=== PATIENT | female | born 1945 | race Caucasian/White ===

== ENCOUNTER → 2016-06-01 | Outpatient (CLI) | payer MEDICARE, BC ==
--- NOTE | 2016-06-02 10:12 | MM ---
Reason for exam: screening (asymptomatic). Last mammogram was performed 1 year ago. History: Patient is postmenopausal. Physical Findings: A clinical breast exam by your physician is recommended on an annual basis and results should be correlated with mammographic findings. MG 3D Screening Mammo W/Cad Bilateral CC and MLO view(s) were taken. Prior study comparison: May 30, 2015, bilateral MG screening mammo w CAD. February 08, 2014, mammogram, performed at [facility]. November 08, 2012, mammogram, performed at [facility]. The breast tissue is heterogeneously dense. This may lower the sensitivity of mammography. No significant changes when compared with prior studies. ASSESSMENT: Benign, BI-RAD 2 RECOMMENDATION: Routine screening mammogram of both breasts in 1 year.
== END | disposition home or self-care (01) ==
LOC: RADMAMWWP 10:37
PROVIDERS: ATTEND Internal Medicine
DX: Z12.31 Encounter for screening mammogram for malignant neoplasm of breast (principal)
CPT/HCPCS: 77063; G0202

== ENCOUNTER 2016-06-16 10:52 | Day surgery (SDC) | payer MEDICARE, BC ==
[2016-06-11 13:51] VITALS: BMI 28.3
[~2016-06-16 10:52] MED LIST: LACTATED RINGERS 1,000 ML IV SCH
[2016-06-16 11:11] VITALS: TEMP 97.8
[2016-06-16] MEDS ORDERED: LIDOCAINE 1% 20 ML VIAL (10MG/ML) FOR IV START INTRADERMA ONE (11:16)
[2016-06-16] MEDS ORDERED: PROPOFOL 10 MG/ML 20 ML VIAL IV ONE (11:59)
[2016-06-16] MEDS ORDERED: LIDOCAINE 1% INJ 10MG/ML (20 ML MDV) ONE (11:59)
--- NOTE | 2016-06-16 12:18 | P.GSHP ---
History of Present Illness H&P Date: 06/16/16 Chief Complaint: Colon cancer screening Patient here today for colonoscopy. Her last colonoscopy was 7 years ago. Denies rectal bleeding or melena. No family history of colon cancer or polyps. Patient has no bowel related complaints. Past Medical History Past Medical History: Osteoarthritis (OA) Additional Past Medical History / Comment(s): HX OF RAJAN KAREL'S SYNDROME, HX OF FIBRO MYOCARDITIS, HX OF DIVERTICULITS, History of Any Multi-Drug Resistant Organisms: None Reported Past Surgical History: Section, Tubal Ligation Additional Past Surgical History / Comment(s): GROESHON CATH, IN AND NOW REMOVED FOR ANTI VIRAL DRUG FOR FIBRO MYOCARDITIS Past Anesthesia/Blood Transfusion Reactions: Previous Problems w/ Anesthesia Additional Past Anesthesia/Blood Transfusion Reaction / Comment(s): STATES WAS AWAKE DURING ONE SURGERY Past Psychological History: Anxiety Smoking Status: Never smoker Past Alcohol Use History: Occasional Past Drug Use History: Marijuana Additional Drug Use History / Comment(s): TAKE MARIJUANA CAPSULES THAT CONTAIN OIL, BUT NO THC. INSTRUCTED TO HOLD 24 HRS PRIOR TO PROCEDURE - Past Family History Brother(s) Family Medical History: Cancer Additional Family Medical History / Comment(s): PROSTATE Medications and Allergies Home Medications Medication Instructions Recorded Confirmed Type Cetirizine HCl [Zyrtec] 10 mg PO DIRECTED PRN 06/11/16 06/16/16 History Life Fortunate Supplements 1 tab PO DAILY 06/11/16 06/16/16 History Xanax Unknown Dose 1 tab PO DIRECTED PRN 06/11/16 06/16/16 History Allergies Allergy/AdvReac Type Severity Reaction Status Date / Time ciprofloxacin [From Cipro] Allergy RAJAN Verified 06/16/16 11:08 KAREL SYN. latex Allergy Rash/Hives Verified 06/16/16 11:08 metronidazole [From Flagyl] Allergy RAJAN Verified 06/16/16 11:08 KAREL SYN sulfamethoxazole Allergy Unknown Verified 06/16/16 11:08 [From Bactrim] trimethoprim [From Bactrim] Allergy Unknown Verified 06/16/16 11:08 Surgical - Exam Vital Signs Resp 16 06/16/16 11:03 Physical exam: General: Well-developed, well-nourished HEENT: Normocephalic, sclerae nonicteric Abdomen: Nontender, nondistended Extremities: No edema Neuro: Alert and oriented Assessment and Plan (1) Colon cancer screening Narrative/Plan: Will proceed with colonoscopy at this time. Status: Acute
--- NOTE | 2016-06-16 12:35 | P.PCN ---
Date of Procedure: 06/16/16 Procedure(s) Performed: PREOPERATIVE DIAGNOSIS: Colon cancer screening POSTOPERATIVE DIAGNOSIS: Diverticulosis PROCEDURE: Colonoscopy ANESTHESIA: MAC SURGEON: Emery Merida M.D. SPECIMENS: None ENDOSCOPIC PROCEDURE: The patient was placed on the endoscopy table in the left decubitus position. The Olympus colonoscope was inserted into the anus and passed under direct visualization to the base of the cecum. The appendiceal orifice was visualized. From that point the scope was slowly withdrawn inspecting all surfaces carefully. There were no neoplastic inflammatory or polypoid lesions throughout the cecum, ascending, transverse, descending, sigmoid and rectum. There was moderate diverticulosis noted out the entire colon. Digital rectal examination was normal. The patient was taken to the recovery room in stable condition per anesthesia guidelines. RECOMMENDATIONS: Increase fiber. Follow colonoscopy 10 years.
[2016-06-16 12:39] VITALS: RESP 18
[2016-06-16 13:09] VITALS: BP 133/57; PULSE 58
== END 2016-06-16 13:24 | disposition home or self-care (01) ==
LOC: ORWHC2ENDO 10:52
PROVIDERS: ATTEND Surgery
DX: Z12.11 Encounter for screening for malignant neoplasm of colon (principal); K57.30 Diverticulosis of large intestine without perforation or abscess without bleeding; M19.90 Unspecified osteoarthritis, unspecified site; Z88.8 Allergy status to other drugs, medicaments and biological substances
CPT/HCPCS: J2001; J2704; G0121

== ENCOUNTER → 2018-07-14 | Outpatient (CLI) | payer MEDICARE, BC ==
--- NOTE | 2018-07-15 10:46 | MM ---
Reason for exam: screening (asymptomatic). Last mammogram was performed 2 years and 1 month ago. History: Patient is postmenopausal. Physical Findings: A clinical breast exam by your physician is recommended on an annual basis and results should be correlated with mammographic findings. MG 3D Screening Mammo W/Cad Bilateral CC and MLO view(s) were taken. XCCL view(s) were taken of the right breast. Prior study comparison: June 01, 2016, bilateral MG 3d screening mammo w/cad. May 30, 2015, bilateral MG screening mammo w CAD. The breast tissue is extremely dense which could obscure a lesion on mammography. Stable benign calcifications. There is no discrete abnormality. No significant changes when compared with prior studies. ASSESSMENT: Benign, BI-RAD 2 RECOMMENDATION: Routine screening mammogram of both breasts in 1 year.
== END ==
LOC: RADMAMWWP 11:50
PROVIDERS: ATTEND Internal Medicine
DX: Z12.31 Encounter for screening mammogram for malignant neoplasm of breast (principal)
CPT/HCPCS: 77063; 77067

== ENCOUNTER → 2020-09-25 | Outpatient (CLI) | payer MEDICARE, BC ==
--- NOTE | 2020-09-26 10:27 | MM ---
Reason for exam: screening (asymptomatic). Last mammogram was performed 2 years and 2 months ago. History: Patient is postmenopausal. Physical Findings: A clinical breast exam by your physician is recommended on an annual basis and results should be correlated with mammographic findings. MG 3D Screening Mammo W/Cad Bilateral CC and MLO view(s) were taken. Prior study comparison: July 14, 2018, bilateral MG 3d screening mammo w/cad. June 01, 2016, bilateral MG 3d screening mammo w/cad. The breast tissue is heterogeneously dense. This may lower the sensitivity of mammography. ASSESSMENT: Negative, BI-RAD 1 RECOMMENDATION: Routine screening mammogram of both breasts in 1 year.
== END | disposition home or self-care (01) ==
LOC: RADMAMWWP 10:41
PROVIDERS: ATTEND Internal Medicine
DX: Z12.31 Encounter for screening mammogram for malignant neoplasm of breast (principal); Z78.0 Asymptomatic menopausal state
CPT/HCPCS: 77063; 77067

== ENCOUNTER 2020-12-12 07:48 | Emergency (ER) | payer MEDICARE, BC ==
[2020-12-12] MEDS ORDERED: ONDANSETRON 4 MG/2 ML VIAL IVP STA (08:16)
[2020-12-12] MEDS ORDERED: MORPHINE SULFATE 4 MG/ML SYRINGE IVP STA (08:16)
[2020-12-12] MEDS ORDERED: SODIUM CHLORIDE 0.9% 1,000 ML IV STA (08:17)
--- NOTE | 2020-12-12 08:18 | ED ---
General Adult HPI - General Chief complaint: Abdominal Pain Stated complaint: Abdominal Pain/Cramping Time Seen by Provider: 12/12/20 08:01 Source: patient Mode of arrival: ambulatory Limitations: no limitations - History of Present Illness Initial comments: 75-year-old female presents to the emergency room for a chief complaint of lower abdominal pain. Patient reports that she has had diarrhea for the past 3 days. States the diarrhea seems to be starting to improve but she is still having abdominal pain. States turning from side to side when she is sleeping worsens the pain. States standing up and walking worsens the pain. Patient admits to nausea but denies vomiting. Denies fevers. Patient's daughter is concerned she could be dehydrated. Patient does report she has been trying to drink water frequently throughout the day.Patient has no other complaints at this time including shortness of breath, chest pain, abdominal pain, nausea or vomiting, headache, or visual changes. - Related Data Home Medications Medication Instructions Recorded Confirmed Cetirizine HCl [Zyrtec] 10 mg PO DAILY 06/11/16 12/12/20 Multivitamins, Thera [Multivitamin 1 tab PO DAILY 12/12/20 12/12/20 (formulary)] Previous Rx's Medication Instructions Recorded Loperamide [Imodium] 2 mg PO QID PRN #8 cap 12/12/20 Allergies Allergy/AdvReac Type Severity Reaction Status Date / Time ciprofloxacin [From Cipro] Allergy RAJAN Verified 12/12/20 10:14 KAREL SYN. latex Allergy Rash/Hives Verified 12/12/20 10:14 metronidazole [From Flagyl] Allergy RAJAN Verified 12/12/20 10:14 KAREL SYN sulfamethoxazole Allergy Unknown Verified 12/12/20 10:14 [From Bactrim] trimethoprim [From Bactrim] Allergy Unknown Verified 12/12/20 10:14 Review of Systems ROS Statement: Those systems with pertinent positive or pertinent negative responses have been documented in the HPI. ROS Other: All systems not noted in ROS Statement are negative. Past Medical History Past Medical History: Osteoarthritis (OA) Additional Past Medical History / Comment(s): HX OF RAJAN KAREL'S SYNDROME, HX OF FIBRO MYOCARDITIS, HX OF DIVERTICULITS, History of Any Multi-Drug Resistant Organisms: None Reported Past Surgical History: Section, Tubal Ligation Additional Past Surgical History / Comment(s): GROESHON CATH, IN AND NOW REMOVED FOR ANTI VIRAL DRUG FOR FIBRO MYOCARDITIS Past Anesthesia/Blood Transfusion Reactions: Previous Problems w/ Anesthesia Additional Past Anesthesia/Blood Transfusion Reaction / Comment(s): STATES WAS AWAKE DURING ONE SURGERY Past Psychological History: Anxiety Past Alcohol Use History: Occasional Past Drug Use History: None Reported, Marijuana - Past Family History Brother(s) Family Medical History: Cancer Additional Family Medical History / Comment(s): PROSTATE General Exam Limitations: no limitations General appearance: alert, in no apparent distress Head exam: Present: atraumatic Eye exam: Present: normal appearance, PERRL, EOMI. Absent: scleral icterus, conjunctival injection ENT exam: Present: normal exam, mucous membranes moist Neck exam: Present: normal inspection, full ROM. Absent: tenderness Respiratory exam: Present: normal lung sounds bilaterally. Absent: respiratory distress, wheezes Cardiovascular Exam: Present: regular rate, normal rhythm, normal heart sounds GI/Abdominal exam: Present: soft, normal bowel sounds. Absent: distended, tenderness Neurological exam: Present: alert Course Vital Signs 12/12/20 12/12/20 12/12/20 07:50 08:58 09:00 Temperature 98.1 F Pulse Rate 72 Respiratory 18 16 16 Rate Blood Pressure 150/91 O2 Sat by Pulse 99 Oximetry 12/12/20 10:00 Temperature Pulse Rate Respiratory 16 Rate Blood Pressure O2 Sat by Pulse Oximetry Medical Decision Making - Medical Decision Making Vitals are stable. CBC CMP unremarkable. Urinalysis does not show any evidence of infection. CT abdomen and pelvis with contrast showed at least a right-sided colitis with additional multifocal enterocolitis that may be present. Differential includes infectious and/or inflammatory etiologies. Patient is afebrile with a normal white blood cell count. At this time. She can be discharged home with Imodium. Can follow-up with her doctor. Can return here for any worsening symptoms. - Lab Data Result diagrams: 12/12/20 08:53 12/12/20 08:53 Lab Results 12/12/20 12/12/20 12/12/20 Range/Units 08:53 08:53 08:53 WBC 6.4 (3.8-10.6) k/uL RBC 4.49 (3.80-5.40) m/uL Hgb 14.8 (11.4-16.0) gm/dL Hct 42.5 (34.0-46.0) % MCV 94.6 (80.0-100.0) fL MCH 33.0 (25.0-35.0) pg MCHC 34.9 (31.0-37.0) g/dL RDW 12.2 (11.5-15.5) % Plt Count 175 (150-450) k/uL MPV 9.5 Neutrophils % 78 % Lymphocytes % 15 % Monocytes % 5 % Eosinophils % 1 % Basophils % 0 % Neutrophils # 5.0 (1.3-7.7) k/uL Lymphocytes # 0.9 L (1.0-4.8) k/uL Monocytes # 0.3 (0-1.0) k/uL Eosinophils # 0.0 (0-0.7) k/uL Basophils # 0.0 (0-0.2) k/uL Sodium 137 (137-145) mmol/L Potassium 3.8 (3.5-5.1) mmol/L Chloride 107 (98-107) mmol/L Carbon Dioxide 23 (22-30) mmol/L Anion Gap 7 mmol/L BUN 9 (7-17) mg/dL Creatinine 0.69 (0.52-1.04) mg/dL Est GFR (CKD-EPI)AfAm >90 (>60 ml/min/1.73 sqM) Est GFR (CKD-EPI)NonAf 86 (>60 ml/min/1.73 sqM) Glucose 108 H (74-99) mg/dL Plasma Lactic Acid Moreno 0.8 (0.7-2.0) mmol/L Calcium 9.2 (8.4-10.2) mg/dL Total Bilirubin 0.6 (0.2-1.3) mg/dL AST 20 (14-36) U/L ALT 10 (4-34) U/L Alkaline Phosphatase 45 (38-126) U/L Total Protein 6.2 L (6.3-8.2) g/dL Albumin 3.6 (3.5-5.0) g/dL Amylase 42 (30-110) U/L Lipase 71 (23-300) U/L Urine Color Urine Appearance (Clear) Urine pH (5.0-8.0) Ur Specific Brielle (1.001-1.035) Urine Protein (Negative) Urine Glucose (UA) (Negative) Urine Ketones (Negative) Urine Blood (Negative) Urine Nitrite (Negative) Urine Bilirubin (Negative) Urine Urobilinogen (<2.0) mg/dL Ur Leukocyte Esterase (Negative) Urine RBC (0-5) /hpf Urine WBC (0-5) /hpf Ur Squamous Epith Cells (0-4) /hpf Urine Mucus (None) /hpf 12/12/20 Range/Units 10:24 WBC (3.8-10.6) k/uL RBC (3.80-5.40) m/uL Hgb (11.4-16.0) gm/dL Hct (34.0-46.0) % MCV (80.0-100.0) fL MCH (25.0-35.0) pg MCHC (31.0-37.0) g/dL RDW (11.5-15.5) % Plt Count (150-450) k/uL MPV Neutrophils % % Lymphocytes % % Monocytes % % Eosinophils % % Basophils % % Neutrophils # (1.3-7.7) k/uL Lymphocytes # (1.0-4.8) k/uL Monocytes # (0-1.0) k/uL Eosinophils # (0-0.7) k/uL Basophils # (0-0.2) k/uL Sodium (137-145) mmol/L Potassium (3.5-5.1) mmol/L Chloride (98-107) mmol/L Carbon Dioxide (22-30) mmol/L Anion Gap mmol/L BUN (7-17) mg/dL Creatinine (0.52-1.04) mg/dL Est GFR (CKD-EPI)AfAm (>60 ml/min/1.73 sqM) Est GFR (CKD-EPI)NonAf (>60 ml/min/1.73 sqM) Glucose (74-99) mg/dL Plasma Lactic Acid Moreno (0.7-2.0) mmol/L Calcium (8.4-10.2) mg/dL Total Bilirubin (0.2-1.3) mg/dL AST (14-36) U/L ALT (4-34) U/L Alkaline Phosphatase (38-126) U/L Total Protein (6.3-8.2) g/dL Albumin (3.5-5.0) g/dL Amylase (30-110) U/L Lipase (23-300) U/L Urine Color Yellow Urine Appearance Clear (Clear) Urine pH 5.5 (5.0-8.0) Ur Specific Brielle >1.050 H (1.001-1.035) Urine Protein Trace H (Negative) Urine Glucose (UA) Negative (Negative) Urine Ketones Negative (Negative) Urine Blood Negative (Negative) Urine Nitrite Negative (Negative) Urine Bilirubin Negative (Negative) Urine Urobilinogen <2.0 (<2.0) mg/dL Ur Leukocyte Esterase Moderate H (Negative) Urine RBC 4 (0-5) /hpf Urine WBC 3 (0-5) /hpf Ur Squamous Epith Cells 1 (0-4) /hpf Urine Mucus Occasional H (None) /hpf Disposition Clinical Impression: Diarrhea, Colitis, Abdominal pain Disposition: HOME SELF-CARE Condition: Good Instructions (If sedation given, give patient instructions): Abdominal Pain (ED) Additional Instructions: Please take Imodium as needed. Continue to drink plenty of fluids. Follow-up with your doctor or a recheck in 1-2 days. Return to the emergency room for any worsening symptoms. Prescriptions: Loperamide [Imodium] 2 mg PO QID PRN #8 cap PRN Reason: Diarrhea Is patient prescribed a controlled substance at d/c from ED?: No Referrals: Alexander Carranza MD [Primary Care Provider] - 1-2 days Time of Disposition: 11:25
[2020-12-12 09:06] LABS: Basophils % (A) 0 %; Eosinophils % (A) 1 %; HCT 42.5 % (34.0-46.0); HGB 14.8 gm/dL (11.4-16.0); Lymphocytes # (A) 0.9 k/uL (1.0-4.8); Lymphocytes % (A) 15 %; MCHC 34.9 g/dL (31.0-37.0); MCV 94.6 fL (80.0-100.0); Mean Platelet Volume 9.5; Monocytes # (A) 0.3 k/uL (0-1.0); Monocytes % (A) 5 %; Neutrophils % (A) 78 %; Platelet Count 175 k/uL (150-450); RBC 4.49 m/uL (3.80-5.40); RDW 12.2 % (11.5-15.5); WBC 6.4 k/uL (3.8-10.6)
[2020-12-12 09:18] LABS: ALT 10 U/L (4-34); AST 20 U/L (14-36); African American GFR (CKD) >90 (>60 ml/min/1.73 sqM); Albumin 3.6 g/dL (3.5-5.0); Alkaline Phosphatase 45 U/L (38-126); Amylase 42 U/L (30-110); Anion Gap 7 mmol/L; Blood Urea Nitrogen 9 mg/dL (7-17); Calcium 9.2 mg/dL (8.4-10.2); Carbon Dioxide 23 mmol/L (22-30); Chloride 107 mmol/L (98-107); Glucose 108 mg/dL (74-99); Lipase 71 U/L (23-300); Non-African American GFR(CKD) 86 (>60 ml/min/1.73 sqM); Potassium 3.8 mmol/L (3.5-5.1); Sodium 137 mmol/L (137-145); Total Bilirubin 0.6 mg/dL (0.2-1.3); Total Protein 6.2 g/dL (6.3-8.2)
--- NOTE | 2020-12-12 09:57 | CT ---
EXAMINATION TYPE: CT abdomen pelvis w con DATE OF EXAM: 12/12/2020 HISTORY: abdominal cramping, diarrhea, and pain. CT DLP: 696.2mGycm Automated Exposure Control for Dose Reduction was Utilized. CONTRAST: CT scan of the abdomen and pelvis is performed without oral but with IV Contrast, patient injected wi th 100 mL of Isovue 300. COMPARISON: None. FINDINGS: LUNG BASES: Mild bibasilar linear scarring and/or atelectasis. Moderate right atrial dilatation thoug ht present. LIVER/GB: Occasional subcentimeter hypodense focus scattered throughout the liver too small to furthe r characterize presumed benign. PANCREAS: No significant abnormality is seen. SPLEEN: No significant abnormality is seen. ADRENALS: No significant abnormality is seen. KIDNEYS: There is symmetric cortical medullary uptake and excretion without hydronephrosis seen bilat erally. Simple appearing parapelvic cysts centrally in both kidneys left greater than right are prese nt. BOWEL: Suboptimal evaluation without enteric contrast. No suspicious small or large bowel dilatation. There is low lying cecum into the right pelvis. Appendix within normal limits ascending from the low -lying cecum. There are scattered colonic diverticula greatest in the slightly redundant sigmoid colo n. The cecum shows mild mucosal enhancement with air-fluid level. Mild to moderate wall thickening in th e terminal ileum is present. The right colon shows more moderate to severe wall thickening with mild fat stranding near the hepatic flexure, the abnormal wall thickening extends into the proximal two th irds of the transverse colon. There is some fluid and fecal material in the left colon. Mild wall thi ckening in the sigmoid rectal colon is present. UTERUS/ADNEXA: Slightly retroflexed uterus. Prominent draining ovarian vessels particularly on the le ft cannot exclude pelvic congestion syndrome in the appropriate clinical setting. LYMPH NODES: No greater than 1cm abdominal or pelvic lymph nodes are appreciated. OSSEOUS STRUCTURES: Slight grade 1 anterolisthesis L4 on L5. OTHER: No significant additional abnormality is seen. IMPRESSION: There is at least a right-sided colitis. Additional multifocal enterocolitis may be prese nt. Differential includes infectious and/or inflammatory etiologies. Correlate clinically.
[2020-12-12 10:41] VITALS: RESP 16
[2020-12-12 10:52] LABS: Appearance,Urine Clear (Clear); Bilirubin,Urine Negative (Negative); Blood,Urine Negative (Negative); Color,Urine Yellow; Glucose,Urine (UA) Negative (Negative); Ketones,Urine Negative (Negative); Leukocyte Esterase,Urine Moderate (Negative); Mucus,Urine Occasional /hpf; Nitrite,Urine Negative (Negative); PH, Urine 5.5 (5.0-8.0); Protein,Urine Trace (Negative); RBC,Urine 4 /hpf (0-5); Squamous Epithelial Cell,Urine 1 /hpf (0-4); Urobilinogen,Urine <2.0 mg/dL (<2.0); WBC,Urine 3 /hpf (0-5)
[2020-12-12 10:58] LABS: Specific Gravity,Urine >1.050 (1.001-1.035)
[2020-12-12 11:43] VITALS: BP 137/80; PULSE 69; TEMP 97.9
== END 2020-12-12 11:43 | disposition home or self-care (01) ==
LOC: EC 07:48
DX: K52.9 Noninfective gastroenteritis and colitis, unspecified (principal); M19.90 Unspecified osteoarthritis, unspecified site; Z88.1 Allergy status to other antibiotic agents; Z88.2 Allergy status to sulfonamides; Z79.899 Other long term (current) drug therapy
CPT/HCPCS: 36415; 80053; 82150; 83605; 83690; 85025; 81001; 74177; 96374; 96375; 96361; 99284; J2270; J2405; Q9967

== ENCOUNTER → 2021-12-31 | Outpatient (CLI) | payer MEDICARE, BC ==
--- NOTE | 2022-01-01 08:27 | MM ---
Reason for Exam: Screening (asymptomatic). Last mammogram was performed 1 year(s) and 3 month(s) ago. Patient History: Menarche at age 15. First Full-Term at age 23. Postmenopausal. Risk Values: Jami 5 year model risk: 1.4%. NCI Lifetime model risk: 2.9%. Prior Study Comparison: 06/01/2016 Bilateral Screening Mammogram, [facility]. 07/14/2018 Bilateral Screening Mammogram, [facility]. 09/25/2020 Bilateral Screening Mammogram, [facility]. Tissue Density: The breast tissue is extremely dense which could obscure a lesion on mammography. Findings: Analyzed By CAD. There is no suspicious group of microcalcifications or new suspicious mass in either breast. Overall Assessment: Benign, BI-RAD 2 Management: Screening Mammogram of both breasts in 1 year. A clinical breast exam by your physician is recommended on an annual basis and results should be correlated with mammographic findings. Electronically signed and approved by: Landry Wilkes M.D. Radiologis
== END | disposition home or self-care (01) ==
LOC: RADMAMWWP 15:05
PROVIDERS: ATTEND Internal Medicine
DX: Z12.31 Encounter for screening mammogram for malignant neoplasm of breast (principal); Z78.0 Asymptomatic menopausal state
CPT/HCPCS: 77063; 77067

== ENCOUNTER → 2023-01-12 | Outpatient (CLI) | payer MEDICARE, BC ==
--- NOTE | 2023-01-13 21:07 | MM ---
Reason for Exam: Screening (asymptomatic). Last mammogram was performed 1 year(s) and 1 month(s) ago. Patient History: Menarche at age 15. First Full-Term at age 23. Postmenopausal. Risk Values: Jami 5 year model risk: 1.4%. NCI Lifetime model risk: 2.7%. Prior Study Comparison: 07/14/2018 Bilateral Screening Mammogram, [facility]. 09/25/2020 Bilateral Screening Mammogram, [facility]. 12/31/2021 Bilateral MG 3D screening mammo w/cad, [facility]. Tissue Density: The breast tissue is extremely dense which could obscure a lesion on mammography. Findings: Analyzed By CAD. Benign bilateral round calcifications. There is no suspicious group of microcalcifications or new suspicious mass in either breast. Overall Assessment: Benign, BI-RAD 2 Management: Screening Mammogram of both breasts in 1 year. Given the extremely dense breast tissue, consideration can be given to supplementary screening with breast ultrasound. Patient should continue monthly self-breast exams. A clinical breast exam by your physician is recommended on an annual basis. This exam should not preclude additional follow-up of suspicious palpable abnormalities. Note on Jami scores and lifetime risk: 1. A Jami score greater than 3% is considered moderate risk. If this is the case, consider specialist referral to assess eligibility for a risk reducing agent. 2. If overall lifetime risk for the development of breast cancer is 20% or higher, the patient may qualify for future screening with alternating mammogram and breast MRI. Electronically signed and approved by: Suhas Desir M.D. Radiologist
== END | disposition home or self-care (01) ==
LOC: RADMAMWWP 11:10
PROVIDERS: ATTEND Internal Medicine
DX: Z12.31 Encounter for screening mammogram for malignant neoplasm of breast (principal); Z78.0 Asymptomatic menopausal state
CPT/HCPCS: 77063; 77067

== ENCOUNTER 2023-08-14 15:21 | Emergency (ER) | payer MEDICARE, BC ==
[2023-08-14 15:58] VITALS: BP 198/84; PULSE 74; RESP 20; TEMP 98.1
--- NOTE | 2023-08-14 16:18 | ED ---
Upper Extremity HPI - General Chief Complaint: Extremity Injury, Upper Stated Complaint: L elbow pain Time Seen by Provider: 08/14/23 16:15 Source: patient, family, RN notes reviewed, old records reviewed Mode of arrival: ambulatory Limitations: no limitations - History of Present Illness Initial Comments: 77-year-old female presenting to the ER with a chief complaint of left elbow pain. Patient reports on 08-10-2023 she was doing housework and accidentally fell landing on her left elbow. She states she tripped over a pile of laundry causing her to fall. Denies any head injury or loss of consciousness. Family saw her 2 days later and noticed significant bruising to the left elbow. Patient was seen at urgent care on 08-12-2023 and had x-rays completed. X-rays showing a slightly comminuted displaced fracture involving the proximal ulna. Patient reports that she was discharged with an orthopedic follow-up and 600 mg ibuprofen. She states pain has been intolerable and affecting her sleep. She has follow-up with orthopedics on Wednesday. She denies any other complaints at this time. - Related Data Home Medications Medication Instructions Recorded Confirmed Cetirizine HCl [Zyrtec] 10 mg PO DAILY 06/11/16 12/12/20 Multivitamins, Thera [Multivitamin 1 tab PO DAILY 12/12/20 12/12/20 (formulary)] Previous Rx's Medication Instructions Recorded Loperamide [Imodium] 2 mg PO QID PRN #8 cap 12/12/20 Allergies Allergy/AdvReac Type Severity Reaction Status Date / Time ciprofloxacin [From Cipro] Allergy RAJAN Verified 08/14/23 15:29 KAREL SYN. latex Allergy Rash/Hives Verified 08/14/23 15:29 metronidazole [From Flagyl] Allergy RAJAN Verified 08/14/23 15:29 KAREL SYN sulfamethoxazole Allergy Unknown Verified 08/14/23 15:29 [From Bactrim] trimethoprim [From Bactrim] Allergy Unknown Verified 08/14/23 15:29 Review of Systems ROS Statement: Those systems with pertinent positive or pertinent negative responses have been documented in the HPI. ROS Other: All systems not noted in ROS Statement are negative. Past Medical History Past Medical History: Osteoarthritis (OA) Additional Past Medical History / Comment(s): HX OF RAJAN KAREL'S SYNDROME, HX OF FIBRO MYOCARDITIS, HX OF DIVERTICULITS, History of Any Multi-Drug Resistant Organisms: None Reported Past Surgical History: Section, Tubal Ligation Additional Past Surgical History / Comment(s): GROESHON CATH, IN AND NOW REMOVED FOR ANTI VIRAL DRUG FOR FIBRO MYOCARDITIS Past Anesthesia/Blood Transfusion Reactions: Previous Problems w/ Anesthesia Additional Past Anesthesia/Blood Transfusion Reaction / Comment(s): STATES WAS AWAKE DURING ONE SURGERY Past Psychological History: Anxiety Smoking Status: Never smoker Past Alcohol Use History: Occasional Past Drug Use History: None Reported, Marijuana - Past Family History Brother(s) Family Medical History: Cancer Additional Family Medical History / Comment(s): PROSTATE General Exam Limitations: no limitations General appearance: alert, in no apparent distress Respiratory exam: Present: normal lung sounds bilaterally. Absent: respiratory distress, wheezes, rales, rhonchi, stridor Cardiovascular Exam: Present: regular rate, normal rhythm, normal heart sounds. Absent: systolic murmur, diastolic murmur, rubs, gallop, clicks Extremities exam: Present: tenderness (Left elbow. Significant bruising to left elbow with edema. 2+ left radial pulse. Sensation intact. Full range of motion of digits.) Psychiatric exam: Present: normal affect, normal mood Skin exam: Present: warm, dry, intact, normal color. Absent: rash Course Vital Signs 08/14/23 15:26 Temperature 98.1 F Pulse Rate 74 Respiratory 20 Rate Blood Pressure 198/84 O2 Sat by Pulse 99 Oximetry Procedures - Orthopedic Splinting/Casting Injury #1 Side: left Upper Extremity Injury Location: elbow Upper Extremity Immobilizer: posterior splint Medical Decision Making - Medical Decision Making Was pt. sent in by a medical professional or institution (, PA, L[employer] P[employer], urgent care, hospital, or shelter...) When possible be specific @ -No Did you speak to anyone other than the patient for history (EMS, parent, family, police, friend...)? What history was obtained from this source @ -Daughter aiding in HPI Did you review nursing and triage notes (agree or disagree)? Why? @ -I reviewed and agree with nursing and triage notes Were old charts reviewed (outside hosp., previous admission, EMS record, old EKG, old radiological studies, urgent care reports/EKG's, shelter records)? Report findings @ -Yes, I reviewed x-ray findings from [facility] [place] on 08-12-2023. Left elbow x-ray significant for a slightly comminuted displaced fracture involving the proximal ulna. Differential Diagnosis (chest pain, altered mental status, abdominal pain women, abdominal pain men, vaginal bleeding, weakness, fever, dyspnea, syncope, headache, dizziness, GI bleed, back pain, seizure, CVA, palpatations, mental health, musculoskeletal)? @ -Differential Musculoskeletal: Muscular strain, contusion, ligament sprain, fracture, arthritis, septic arthritis, bursitis, cellulitis, muscle spasm, nerve compression, DVT, arterial occlusion, herpes zoster, electrolyte abnormality, tumor.... This is not meant to be in all inclusive list EKG interpreted by me (3pts min.). @ -None X-rays interpreted by me (1pt min.). @ -None done CT interpreted by me (1pt min.). @ -None done U/S interpreted by me (1pt. min.). @ -None done What testing was considered but not performed or refused? (CT, X-rays, U/S, labs)? Why? @ -None What meds were considered but not given or refused? Why? @ -None Did you discuss the management of the patient with other professionals (professionals i.e. , PA, L[employer] P[employer]ER, lab, RT, psych nurse, social professionals, petrography teacher, teacher, marketing and communications officer, family independence case manager)? Give summary @ -No Was smoking cessation discussed for >3mins.? @ -No Was critical care preformed (if so, how long)? @ -No Were there social determinants of health that impacted care today? How? (Homelessness, low income, unemployed, alcoholism, drug addiction, transportation, low edu. Level, literacy, decrease access to med. care, [place] [facility], rehab)? @ -No Was there de-escalation of care discussed even if they declined (Discuss DNR or withdrawal of care, Hospice)? DNR status @ -No What co-morbidities impacted this encounter? (DM, HTN, Smoking, COPD, CAD, Cancer, CVA, ARF, Chemo, Hep., AIDS, mental health diagnosis, sleep apnea, morbid obesity)? @ -None Was patient admitted / discharged? Hospital course, mention meds given and route, prescriptions, significant lab abnormalities, going to OR and other pertinent info. @ -Discharge. 77-year-old female presented to the ER with a chief complaint of left elbow pain. Patient diagnosed with a proximal ulnar fracture by urgent care on 08-13-2023. Patient scheduled to see orthopedics on 08-16-2023. History and physical exam completed. Vitals stable. Patient in no signs of acute distress and nontoxic-appearing. Left upper extremity neurovascular intact. Significant bruising to left elbow with edema. No evidence of skin breakdown. I reviewed x-ray findings from [facility] urgent care on 08-12-2023. Left elbow x-ray significant for a slightly comminuted displaced fracture involving the proximal ulna. Patient resplinted. Tylenol 3 starter pack given. I advised her to continue taking ibuprofen and alternate with [id number] Tylenol. Return parameters discussed. Patient discharged stable condition with follow-up to orthopedics. Patient verbally expressed understanding and agreement with care plan. Case discussed with ED attending, Dr. Chapman. Undiagnosed new problem with uncertain prognosis? @ -No Drug Therapy requiring intensive monitoring for toxicity (Heparin, Nitro, Insulin, Cardizem)? @ -No Were any procedures done? @ -Yes Diagnosis/symptom? @ -Proximal ulnar fracture Acute, or Chronic, or Acute on Chronic? @ -Acute Uncomplicated (without systemic symptoms) or Complicated (systemic symptoms)? @ -Uncomplicated Side effects of treatment? @ -No Exacerbation, Progression, or Severe Exacerbation? @ -No Poses a threat to life or bodily function? How? (Chest pain, [place], [place], pneumonia, PE, COPD, DKA, ARF, appy, cholecystitis, CVA, Diverticulitis, Homicidal, Suicidal, threat to staff... and all critical care pts) @ -No - Radiology Data Radiology results: report reviewed (from [facility] urgent care) Disposition Clinical Impression: Fracture of proximal end of left ulna Disposition: HOME SELF-CARE Condition: Stable Instructions (If sedation given, give patient instructions): Elbow Fracture (DC) Additional Instructions: Please follow-up with orthopedics as scheduled. Return to the ER for any new or worsening concerns. Is patient prescribed a controlled substance at d/c from ED?: No Referrals: Alexander Carranza MD [Primary Care Provider] - 1-2 days Tad Eddy DO [Doctor of Osteopathic Medicine] - 1-2 days Time of Disposition: 16:42
[2023-08-14] MEDS: ACET/COD 300 MG/30 MG STARTER PACK 6 TAB BTL PO STA (17:01)
== END 2023-08-14 17:19 | disposition home or self-care (01) ==
LOC: EC 15:21
DX: S52.002A Unspecified fracture of upper end of left ulna, initial encounter for closed fracture (principal); Z91.040 Latex allergy status; Z88.2 Allergy status to sulfonamides; Z88.8 Allergy status to other drugs, medicaments and biological substances; W01.0XXA Fall on same level from slipping, tripping and stumbling without subsequent striking against object, initial encounter
CPT/HCPCS: 29125; 99283

== ENCOUNTER → 2023-08-16 | Outpatient (CLI) | payer MEDICARE, BC ==
[2023-08-17 03:05] LABS: Basophils # (A) 0.04 X 10*3/uL (0.00-0.10); Basophils % (A) 0.5 %; Eosinophils # (A) 0.07 X 10*3/uL (0.04-0.35); Eosinophils % (A) 0.9 %; HCT 42.3 % (37.2-46.3); HGB 13.8 g/dL (12.0-15.0); Lymphocytes # (A) 1.08 X 10*3/uL (0.90-5.00); MCH 31.7 pg (27.0-32.0); MCHC 32.6 g/dL (32.0-37.0); Mean Platelet Volume 11.9 FL (9.5-12.2); Monocytes # (A) 0.59 X 10*3/uL (0.20-1.00); Monocytes % (A) 7.7 %; NRBC Per 100 WBC 0 X 10*3/uL (0.00-0.01); Neutrophils % (A) 76.6 %; Platelet Count 227 X 10*3/uL (140-440); RBC 4.36 X 10*6/uL (4.10-5.20); RDW 12.9 % (11.5-14.5)
[2023-08-17 03:19] LABS: BUN/Creat Ratio 17.86 Ratio (12.00-20.00); Blood Urea Nitrogen 12.5 mg/dL (9.0-27.0); Calcium 9.3 mg/dL (8.7-10.3); Chloride 106 mmol/L (96-109); Glucose 84 mg/dL (70-110); Potassium 3.5 mmol/L (3.5-5.5); Sodium 143 mmol/L (135-145)
== END | disposition home or self-care (01) ==
LOC: LABPAT 15:10
PROVIDERS: ATTEND Orthopaedic Surgery Hand Surgery
DX: Z01.818 Encounter for other preprocedural examination (principal); S52.022A Displaced fracture of olecranon process without intraarticular extension of left ulna, initial encounter for closed fracture; X58.XXXA Exposure to other specified factors, initial encounter; R94.31 Abnormal electrocardiogram [ECG] [EKG]
CPT/HCPCS: 80048; 85025; 93005

== ENCOUNTER 2023-08-20 06:38 | Day surgery (SDC) | payer MEDICARE, BC ==
[2023-08-17 12:10] VITALS: BMI 26.5
--- NOTE | 2023-08-19 12:39 | P.HPOR ---
History of Present Illness H&P Date: 08/19/23 Subjective: This is a 77 year old female that presents today for initial evaluation regarding a left elbow injury that occurred on 08/12/2023 when she was carrying laundry inside of her house and slipped and fell directly on the posterior aspect of her elbow. She was seen at [facility] urgent care where x-rays were taken and she was placed in a splint. She states that the splint was too tight and she went to [facility] emergency room several days later and a new splint was applied. She is right-hand dominant and lives alone. Physical Examination: LUE: AIN/PIN/Radial/Ulnar/Median motor intact. Radial/Ulnar/Median SILT. 2+/4 Radial/Ulnar pulses palpated. 5/5 APB, 5/5 FDI. Splint is clean, dry and intact with swelling distally in the hand. Able to make a full fist without pain. Imaging: X-Rays of the left elbow 3 view taken in the office today demonstrates a displaced left olecranon fracture with 1 cm of displacement. Comminution is present. Impression: 1.) Left elbow olecranon fracture, displaced. Plan: Diagnosis and treatment options were discussed with the patient. Due to the amount of displacement present on imaging today I recommend surgical intervention in the form of a left olecranon fracture open reduction internal fixation. Risks and benefits of surgery including bleeding, infection, damage to surrounding tissue, need for further surgery, residual numbness were discussed and the patient wished to go forward with surgery. The patient was agreeable with this plan. CC: Alexander Carranza MD -Baltazar Kaiser DO Orthopedic Hand/Upper Extremity Surgeon Past Medical History Past Medical History: Osteoarthritis (OA) Additional Past Medical History / Comment(s): HX OF WILLIAM KAREL'S SYNDROME, HX OF FIBRO MYOCARDITIS, HX OF DIVERTICULITIS. History of Any Multi-Drug Resistant Organisms: None Reported Past Surgical History: Section, Tubal Ligation Additional Past Surgical History / Comment(s): GROESHON CATHETER PLACED AND LATER REMOVED FOR ANTIVIRAL DRUG FOR FIBRO MYOCARDITIS, colonoscopy X2, cataract surgery. Past Anesthesia/Blood Transfusion Reactions: Previous Problems w/ Anesthesia Additional Past Anesthesia/Blood Transfusion Reaction / Comment(s): STATES WAS AWAKE DURING COLONOSCOPY. Smoking Status: Never smoker - Past Family History Brother(s) Family Medical History: Cancer Additional Family Medical History / Comment(s): PROSTATE CANCER. Medications and Allergies Home Medications Medication Instructions Recorded Confirmed Type Cetirizine HCl [Zyrtec] 10 mg PO DAILY 06/11/16 08/17/23 History Multivitamins, Thera [Multivitamin 1 tab PO DAILY 12/12/20 08/17/23 History (formulary)] Ibuprofen [Motrin] 600 mg PO Q6HR PRN 08/17/23 08/17/23 History Allergies Allergy/AdvReac Type Severity Reaction Status Date / Time ciprofloxacin [From Cipro] Allergy WILLIAM Verified 08/17/23 10:46 KAREL SYN. Influenza Virus Vaccines Allergy William Verified 08/17/23 10:48 Karel Syndrome latex Allergy Rash/Hives Verified 08/17/23 10:46 metronidazole [From Flagyl] Allergy WILLIAM Verified 08/17/23 10:46 KAREL SYN sulfamethoxazole Allergy Unknown Verified 08/17/23 10:46 [From Bactrim] trimethoprim [From Bactrim] Allergy Unknown Verified 08/17/23 10:46 Physical Examination Osteopathic Statement: *. No significant issues noted on an osteopathic structural exam other than those noted in the History and Physical/Consult.
[2023-08-20] MEDS ORDERED: HYDROmorphone 0.5 MG/0.5 ML SYRINGE IVP PRN (07:00)
[2023-08-20] MEDS: LACTATED RINGERS 1,000 ML IV SCH (07:15)
[2023-08-20] MEDS: ONDANSETRON 4 MG/2 ML VIAL ONE (07:39)
[2023-08-20] MEDS: MIDAZOLAM 2 MG/2 ML VIAL IVP ONE (07:58)
--- NOTE | 2023-08-20 08:50 | P.ANPRN ---
Procedure Note - Anesthesia - Nerve Block Performed Left Supraclavicular Single Date of Procedure: 08/20/23 Procedure Start Time: 07:57 Procedure Stop Time: 08:03 Indication: Acute Post-Operative Pain, Analgesia, Requested by Surgeon Sedation Type: Sedate with meaningful contact maintained Preparation: Sterile Prep Position: Supine Needle Gauge: 21 Ultrasound used to visualize needle placement: Yes Ultrasound used to observe medication spread: Yes Injectate: 0.5% Ropivacaine (see comment for volume) Blood Aspirated: No Pain Paresthesia on Injection Noted: No Resistance on Injection: Normal Image Stored and Saved: Yes Events: Uneventful and Well Tolerated (25 mls)
[2023-08-20] MEDS ORDERED: fentaNYL (PF) 50 MCG/ML 2 ML AMP ONE (09:22)
[2023-08-20] MEDS ORDERED: ROPIVACAINE 5 MG/ML 30 ML VIAL ONE (09:22)
[2023-08-20] MEDS ORDERED: PROPOFOL 10 MG/ML 20 ML VIAL IV ONE (09:22)
[2023-08-20] MEDS ORDERED: MIDAZOLAM 2 MG/2 ML VIAL ONE (09:22)
--- NOTE | 2023-08-20 11:23 | P.OP ---
Date of Procedure: 08/20/23 Preoperative Diagnosis: Left olecranon fracture Postoperative Diagnosis: Left olecranon fracture Procedure(s) Performed: Left olecranon fracture open reduction internal fixation. Implants: Walter Variax Olecranon plate Anesthesia: BRYAN regional Surgeon: Baltazar Kaiser Diamond Sander #1: Teddy Amos Estimated Blood Loss (ml): 20 Pathology: none sent Condition: stable Disposition: PACU Description of Procedure: This is a 77 year old female who sustained a left olecranon fracture after falling onto her elbow and presents today for surgical intervention. Risks and benefits of surgery were discussed with the patient including bleeding, damage to surrounding tissue, possible need for irritable hardware removal in the future infection, need for further surgery as well as risks of anesthesia including pulmonary embolism and even and the patient wished to proceed with surgical intervention. The patient was seen in the pre-operative area by myself. Consent and H&P were completed and updated. The correct extremity was marked in the pre-operative area by myself and all other questions were answered. Operative Narrative: The patient was brought to the operating room by the department of anesthesia. They were placed supine on the operative table and general anesthesia was performed. The patient was then drifted off to sleep by the department of anesthesia. A nonsterile tourniquet was then applied to the operat tati extremity and the patient was then placed in a em bag lateral position with all eduard prominences well padded, axillary role was placed. The upper extremity was then prepped and draped in normal sterile fashion. Pre-operative time out was performed indicating the correct patient, procedure and laterality. All in the room agreed. Pre-operative antibiotics were given prior to skin incision. A nonsterile tourniquet was then applied to the operative extremity and the right upper extremity was then prepped and draped in normal sterile fashion. The operative extremity was the exsanguinated with an esmarch bandage and the tourniquet was inflated to 250mmHg. 15 blade scalpel was utilized to make a longitudinal incision over the posterior aspect of the elbow that was directed radially around the olecranon process. Full thickness flaps were then made down to the fracture site of the olecranon. Bovie cautery was utilized for hemostasis. Hematoma was evacuated with suction and irrigation, there was extensive comminution medially and laterally. Fracture ends were cleaned of any soft tissue debris. The fracture was then reduced by hand. Imaging confirmed anatomic reduction of the articular surface in both AP and lateral views. A Walter Variax left sided olecranon plate was then applied to the reduced fracture. The triceps insertion was split longitudinally to make room for the tip of the plate to hug the olecranon process curvature. A non- locking screw was drilled distally in the shaft to compress the plate to bone. Imaging then confirmed good location of the plate on the ulna. The proximal screws were then unicortically drilled and filled with locking screws taking care to not penetrate the articular surface. The remainder of the distal shaft screws were filled with bicortical fixation distal to the fracture line. A long homerun screw was then drilled and measured and a size 46 locking screw was placed as the final homerun screw. The elbow as then ranged and full smooth flexion and extension of the ulna was able to be achieved as well as full pronation/supination of the forearm. Final imaging confirmed correct screw length with no intra-articular penetration at the ulnohumeral or proximal radial ulnar joint. The wound was then irrigated. 3-0 Vicryl suture was used to repair the splint triceps to cover the plate. Layered closure was performed with 3-0 vicryl suture followed by 3-0 nylon suture in a horizontal mattress fashion. Sterile dressing was applied consisting of a adaptic, 4x4s, cast padding, and a soft dressing and sling. Tourniquet was let down and the hand had immediate perfusion. The patient was then woken by the department of anesthesia and transferred to PACU in stable condition. Teddy GAMBOA was present to assist in fracture reduction and hardware placement. Baltazar Kaiser D.O. Orthopedic Hand/Upper Extremity Surgeon
[2023-08-20 11:29] VITALS: TEMP 97
[2023-08-20 13:24] VITALS: BP 133/60; PULSE 56; RESP 20
== END 2023-08-20 13:36 | disposition home or self-care (01) ==
LOC: OR 06:38
PROVIDERS: ATTEND Orthopaedic Surgery Hand Surgery
DX: S52.022A Displaced fracture of olecranon process without intraarticular extension of left ulna, initial encounter for closed fracture (principal); G89.18 Other acute postprocedural pain; M19.90 Unspecified osteoarthritis, unspecified site; Z98.891 History of uterine scar from previous surgery; Z98.51 Tubal ligation status; Z98.890 Other specified postprocedural states; Z79.899 Other long term (current) drug therapy; Z88.1 Allergy status to other antibiotic agents; Z88.7 Allergy status to serum and vaccine; Z91.040 Latex allergy status; Z88.2 Allergy status to sulfonamides; X58.XXXA Exposure to other specified factors, initial encounter
CPT/HCPCS: 64415; 24685; C1713; J2250; J0690; J2405; J3010; J2795; J2704

== ENCOUNTER → 2024-01-18 | Outpatient (CLI) | payer MEDICARE, BC ==
--- NOTE | 2024-01-19 12:57 | MM ---
Reason for Exam: Screening (asymptomatic). Last screening mammogram was performed 12 month(s) ago. Patient History: Menarche at age 15. First Full-Term at age 23. Postmenopausal. Risk Values: Jami 5 year model risk: 1.4%. NCI Lifetime model risk: 2.5%. Prior Study Comparison: 06/01/2016 Bilateral Screening Mammogram, [facility]. 07/14/2018 Bilateral Screening Mammogram, [facility]. 09/25/2020 Bilateral Screening Mammogram, [facility] 12/31/2021 Bilateral MG 3D screening mammo w/cad, [facility]. 01/12/2023 Bilateral MG 3D screening mammo w/cad, [facility]. Tissue Density: The breasts are heterogeneously dense, which may obscure small masses. Findings: Analyzed By CAD. Right breast: There is no suspicious group of microcalcifications or new suspicious mass. Benign-appearing calcifications right breast. Left breast: There is no suspicious group of microcalcifications or new suspicious mass. Benign-appearing calcifications left breast. Overall Assessment: Benign, BI-RAD 2 Management: Screening Mammogram of both breasts in [address] [facility] will attempt to contact patient to return for supplemental views and ultrasound if indicated. Patient should continue monthly self-breast exams. A clinical breast exam by your physician is recommended on an annual basis. This exam should not preclude additional follow-up of suspicious palpable abnormalities. Note on Jami scores and lifetime risk: 1. A Jami score greater than 3% is considered moderate risk. If this is the case, consider specialist referral to assess eligibility for a risk reducing agent. 2. If overall lifetime risk for the development of breast cancer is 20% or higher, the patient may qualify for future screening with alternating mammogram and breast MRI. [facility], , 01/19/2024 12:54 PM. Electronically signed and approved by: Robert Rizzo DO
== END ==
LOC: RADMAMWWP 07:45
PROVIDERS: ATTEND Internal Medicine
CPT/HCPCS: 77063; 77067

== ENCOUNTER 2024-05-22 11:55 | Day surgery (SDC) | payer MEDICARE, BC ==
[2024-05-18 10:51] VITALS: BMI 26.5
[~2024-05-22 11:55] MED LIST changes: -LACTATED RINGERS 1,000 ML IV SCH; +LIDOCAINE 1% (10MG/ML) FOR IV START INTRADERMA PRN
[2024-05-22] MEDS: LACTATED RINGERS 1,000 ML IV ONE (12:24)
[2024-05-22 12:38] VITALS: TEMP 97.8
[2024-05-22] MEDS: LACTATED RINGERS 1,000 ML IV SCH (13:01)
[2024-05-22] MEDS ORDERED: PROPOFOL 10 MG/ML 20 ML VIAL IV ONE (13:42)
--- NOTE | 2024-05-22 14:03 | P.GSHP ---
History of Present Illness H&P Date: 05/22/24 Chief Complaint: Rectal bleeding This is a 78-year-old female comes today for colonoscopy patient says she is rectal bleeding. She has a known history of hemorrhoids. Past Medical History Past Medical History: Osteoarthritis (OA) Additional Past Medical History / Comment(s): HX OF WILLIAM KAREL'S SYNDROME, HX OF VIRAL MYOCARDITIS, HX OF DIVERTICULITIS; hemorrhoids History of Any Multi-Drug Resistant Organisms: None Reported Past Surgical History: Section, Tubal Ligation Additional Past Surgical History / Comment(s): GROESHON CATHETER PLACED AND LATER REMOVED FOR ANTIVIRAL DRUG FOR VIRAL MYOCARDITIS, colonoscopy X2, cataract surgery. Lt elbow [id number]-hloexjwq lalit. Bi lat cataract removal with lens implant. Past Anesthesia/Blood Transfusion Reactions: No Reported Reaction Additional Past Anesthesia/Blood Transfusion Reaction / Comment(s): STATES WAS AWAKE DURING COLONOSCOPY- "I wasn't competely out." "They had to give me more medicine to put me out.' Smoking Status: Never smoker - Past Family History Brother(s) Family Medical History: Cancer Additional Family Medical History / Comment(s): PROSTATE CANCER. Medications and Allergies Home Medications Medication Instructions Recorded Confirmed Type Cetirizine HCl [Zyrtec] 10 mg PO DAILY 06/11/16 05/22/24 History Multivitamins, Thera [Multivitamin 1 tab PO DAILY 12/12/20 05/22/24 History (formulary)] Magnesium 250 mg PO DIRECTED 03/07/24 05/22/24 History Cayenne (Uknown Dose) 1 dose PO QAM 05/18/24 05/22/24 History Hemp Seed Oil(Unknown Dose 1 dose PO QAM 05/18/24 05/22/24 History Red Beet Root/Sour Mcgregor Ext 1 each PO QAM 05/18/24 05/22/24 History [Beet Root-Tart Mcgregor Gummy] Turmeric/Cucumin/Root(Unknown 1 dose PO QAM 05/18/24 05/22/24 History Ubidecarenone [Co Q-10] 100 mg PO QAM 05/18/24 05/22/24 History Vitamin C(Unknown Dose) 1 dose PO QAM 05/18/24 05/22/24 History Vitamin D(Unknown Dose) 1 dose PO QAM 05/18/24 05/22/24 History Allergies Allergy/AdvReac Type Severity Reaction Status Date / Time ciprofloxacin [From Cipro] Allergy WILLIAM Verified 05/22/24 12:38 KAREL SYN. Influenza Virus Vaccines Allergy William Verified 05/22/24 12:38 Karel Syndrome latex Allergy Rash/Hives Verified 05/22/24 12:38 metronidazole [From Flagyl] Allergy WILLIAM Verified 05/22/24 12:38 KAREL SYN sulfamethoxazole Allergy Unknown Verified 05/22/24 12:38 [From Bactrim] trimethoprim [From Bactrim] Allergy Unknown Verified 05/22/24 12:38 Surgical - Exam Vital Signs Temp Pulse Resp BP Pulse Ox 97.8 F 71 16 164/74 99 05/22/24 12:34 05/22/24 12:34 05/22/24 12:34 05/22/24 12:34 05/22/24 12:34 - General well developed, well nourished, no distress - Eyes PERRL - ENT normal pinna - Neck no masses - Respiratory normal expansion - Cardiovascular Rhythm: regular - Abdomen Abdomen: soft, non tender Assessment and Plan Assessment: GI bleed. Will perform colonoscopy.
[2024-05-22 14:35] VITALS: BP 156/66; PULSE 78; RESP 16
--- NOTE | 2024-06-05 10:22 | P.OP ---
Date of Procedure: 05/22/24 Preoperative Diagnosis: Rectal bleeding Postoperative Diagnosis: Transverse colon polyp Diverticulosis Anal biopsy questionable mass Procedure(s) Performed: Colonoscopy Anesthesia: MAC Surgeon: Hayes Hansen Pathology: other (Colon polyp, anal biopsy) Condition: stable Disposition: PACU Description of Procedure: The patient is placed on the endoscopy table in the lateral position. She received IV stationery digital rectal exam was performed. There was a questionable hemorrhoid/mass at the anal verge. This was biopsied with a cold forcep. The colonoscope was in place patient anus passed throughout the entire colon. The ileocecal valve w not be visualized secondary tortuosity of the bowel. The visualized right colon appeared normal except for some diverticulosis. In the transverse colon a polyp seen was removed with a snare. There were diverticular changes seen of the transverse colon and descending colon. The sigmoid colon extensive diverticular changes. Scope was brought back to the rectum this appeared normal. Scope withdrawn from the anus. The anal abnormality visualized. There is no bleeding seen from the biopsy site. Scope withdrawn for the patient.
== END 2024-05-22 15:03 | disposition home or self-care (01) ==
LOC: ORWHC2ENDO 11:55
PROVIDERS: ATTEND Surgery
DX: D01.3 Carcinoma in situ of anus and anal canal (principal); D12.3 Benign neoplasm of transverse colon; K57.30 Diverticulosis of large intestine without perforation or abscess without bleeding; Z79.899 Other long term (current) drug therapy; Z87.19 Personal history of other diseases of the digestive system; Z88.1 Allergy status to other antibiotic agents; Z88.7 Allergy status to serum and vaccine; Z91.040 Latex allergy status; Z88.2 Allergy status to sulfonamides
CPT/HCPCS: 88305; 45380; 45385; J2704

== ENCOUNTER 2024-06-16 06:05 | Day surgery (SDC) | payer MEDICARE, BC ==
[~2024-06-16 06:05] MED LIST changes: -LIDOCAINE 1% (10MG/ML) FOR IV START INTRADERMA PRN; +Pre Op ABX Message 1 EACH MISC MISCELLANE ONE
[2024-06-16] MEDS: IV FLUID CONTINUATION 1,000 ML IV ONE (06:50)
[2024-06-16] MEDS ORDERED: MIDAZOLAM 2 MG/2 ML VIAL IV PRN (07:00)
[2024-06-16] MEDS ORDERED: HYDROmorphone 0.5 MG/0.5 ML SYRINGE IVP PRN (07:00)
[2024-06-16] MEDS: DEXAMETHASONE SOD PHOSPHATE 4 MG/ML 1 ML VIAL IV ONE (07:13)
[2024-06-16] MEDS: ACETAMINOPHEN TAB 500 MG TAB PO PRN (07:13)
[2024-06-16] MEDS: ONDANSETRON 4 MG/2 ML VIAL IVP ONE (07:13)
[2024-06-16] MEDS: HEPARIN SODIUM,PORCINE 5,000 UNIT/ML 1 ML VIAL SQ PRN (07:14)
[2024-06-16] MEDS: LACTATED RINGERS 1,000 ML IV SCH (07:14)
[2024-06-16] MEDS ORDERED: fentaNYL (PF) 50 MCG/ML 2 ML AMP ONE (07:33)
[2024-06-16] MEDS ORDERED: PROPOFOL 10 MG/ML 20 ML VIAL IV ONE (07:33)
[2024-06-16] MEDS ORDERED: SUCCINYLCHOLINE CHLORIDE 200 MG/10 ML VIAL IV ONE (07:33)
[2024-06-16] MEDS ORDERED: LIDOCAINE 1% INJ 10MG/ML (20 ML MDV) ONE (07:33)
[2024-06-16] MEDS ORDERED: MIDAZOLAM 2 MG/2 ML VIAL ONE (07:33)
[2024-06-16] MEDS: LIDOCAINE 1%-EPI 1:100,000 20 ML VIAL SUBMUCOSAL ONE (07:58)
[2024-06-16 08:43] VITALS: TEMP 97.6
--- NOTE | 2024-06-16 08:43 | P.OP ---
Date of Procedure: 06/16/24 Preoperative Diagnosis: Squamous cell carcinoma anus Postoperative Diagnosis: Squamousr cell carcinoma anus Procedure(s) Performed: Excision of anal squamous cell carcinoma Anesthesia: BRYAN Surgeon: Hayes Hansen Estimated Blood Loss (ml): 5 Pathology: other (Anal squamous cell carcinoma) Condition: stable Disposition: PACU Description of Procedure: Is placed on the operating table in the prone jackknife position. Her anus was prepped and draped you sterile fashion. At the 12 o'clock position the patient had a anal squamous cell carcinoma measuring approximate 2.5 cm in diameter. In incision was made around the anal squamous cell carcinoma which included approximately 5 mm of normal skin tissue. Use electrocautery the anal squamous cell carcinoma was dissected. Care was taken to identify preserve the sphincter. Once the specimen was was excised. The mucosal defect was closed using 3-0 Vicryl suture. A small area was left open so the wound could drain. Sterile dressing was applied. Patient Toller procedure well. She was sent to recovery room in stable condition.
[2024-06-16 10:20] VITALS: BP 160/74; PULSE 73; RESP 14
== END 2024-06-16 11:11 | disposition home or self-care (01) ==
LOC: OR 06:05
PROVIDERS: ATTEND Surgery
DX: C44.520 Squamous cell carcinoma of anal skin (principal); M19.90 Unspecified osteoarthritis, unspecified site; F12.90 Cannabis use, unspecified, uncomplicated; Z88.1 Allergy status to other antibiotic agents; Z91.040 Latex allergy status; Z88.7 Allergy status to serum and vaccine; Z88.2 Allergy status to sulfonamides; Z79.899 Other long term (current) drug therapy
CPT/HCPCS: 46922; 88305; J2250; J0330; J1644; J1100; J2405; J2003; J3010; J2704

== ENCOUNTER → 2024-07-27 | Outpatient (CLI) | payer MEDICARE, BC ==
--- NOTE | 2024-07-29 19:34 | PE ---
EXAMINATION TYPE: PET CT fusion skull to thigh DATE OF EXAM: 07/27/2024 CLINICAL INDICATION:Female, 78 years old with history of anal malignancy TECHNIQUE: Following the intravenous administration of 11.02 mCi of F-18 FDG, whole body images are performed from the skull base to the Mid thigh. Images are reviewed on the computer in the coronal, axial, and sagittal planes. Reconstructed rotating images are created on independent workstation an d reviewed on the computer. A non-contrast CT is performed in conjunction with the PET scan. Glucos e level 102 mg/dL CT DLP: 384 mGycm, Automated exposure control for dose reduction was used. 12/12/2020 COMPARISON: CT 12/21/2020, PET/CT None, MRI: None FINDINGS: Mediastinal SUV mean is 2.2. Hepatic parenchyma SUV mean is 2.7. SKULL BASE AND NECK: No suspicious radiotracer activity. CHEST, MEDIASTINUM, AND HILAR REGION: No suspicious radiotracer activity. ABDOMEN AND PELVIS: No suspicious radiotracer activity. MUSCULOSKELETAL STRUCTURES: No suspicious radiotracer activity. OTHER CT: Bilaterally aphakia. Atherosclerosis of the arterial vasculature including the carotid bifurcations. The heart is mildly enlarged for size. Scattered colonic diverticula. IMPRESSION: No evidence for abnormal uptake around the anus. No lymphadenopathy or FDG avid lesions identified. [facility], , 07/29/2024 7:32 PM
== END | disposition home or self-care (01) ==
LOC: RADPETMAIN 13:31
PROVIDERS: ATTEND Internal Medicine Hematology & Oncology
DX: C21.1 Malignant neoplasm of anal canal (principal)
CPT/HCPCS: 78815; A9552

== ENCOUNTER 2024-08-09 09:20 | Day surgery (SDC) | payer MEDICARE, BC ==
[~2024-08-09 09:20] MED LIST changes: +fentaNYL (PF) 50 MCG/ML 2 ML AMP IV PRN
[2024-08-09 10:09] VITALS: RESP 16
[2024-08-09] MEDS: IV FLUID CONTINUATION 1,000 ML IV ONE (10:10)
[2024-08-09] MEDS: LACTATED RINGERS 1,000 ML IV SCH (10:10)
[2024-08-09] MEDS: LIDOCAINE 1% (10MG/ML) FOR IV START INTRADERMA PRN (10:10)
[2024-08-09] MEDS: ONDANSETRON 4 MG/2 ML VIAL IVP ONE (10:24)
[2024-08-09] MEDS: DEXAMETHASONE SOD PHOSPHATE 4 MG/ML 1 ML VIAL IV ONE (10:25)
[2024-08-09 10:34] LABS: Glucose,Whole Blood 89 mg/dL (70-110)
[2024-08-09] MEDS ORDERED: PROPOFOL 10 MG/ML 20 ML VIAL IV ONE (10:39)
[2024-08-09] MEDS ORDERED: PHENYLEPHRINE-0.9% NACL SYG 1,000 MCG/10 ML SYRINGE ONE (10:39)
[2024-08-09] MEDS ORDERED: MIDAZOLAM 2 MG/2 ML VIAL ONE (10:39)
[2024-08-09] MEDS ORDERED: fentaNYL (PF) 50 MCG/ML 2 ML AMP ONE (10:39)
[2024-08-09] MEDS ORDERED: LIDOCAINE 1% INJ 10MG/ML (20 ML MDV) ONE (10:39)
[2024-08-09] MEDS: ceFAZolin 2 GM in DEXTROSE 5% IN WATER 50 ML IVPB STA (10:44)
[2024-08-09] MEDS: BUPIVACAINE (PF) 0.25% 30 ML VIAL SQ ONE (11:03)
--- NOTE | 2024-08-09 11:35 | FL ---
EXAMINATION TYPE: FL guided central line placemt Intraoperative/procedural fluoroscopic services were provided. CLINICAL INDICATION:Female, 78 years old with history of INSERT PORT A CATH; , [facility] FINDINGS: Insertion of right subclavian approach Port-A-Cath with distal tip in the region of the high SVC. No radiographic evidence for complication. Total fluoroscopy time is 22.4 seconds. DAP: 0.6670 Gycm2 Please see the operative/procedural note for further details. [facility], , 08/09/2024 11:33 AM
[2024-08-09 11:36] VITALS: TEMP 97.6
--- NOTE | 2024-08-09 11:48 | P.OP ---
Date of Procedure: 08/09/24 Preoperative Diagnosis: Anal CA Postoperative Diagnosis: Anal CA Procedure(s) Performed: Mediport with Fluoroscopy Implants: MRI compatible 6 Bulgarian Mediport Anesthesia: MAC Surgeon: Arlen Henry Pathology: none sent Condition: stable Disposition: same day Indications for Procedure: 78-year-old female with recent diagnosis of anal cancer. Presents today for Mediport placement for chemotherapy induction. Risks, benefits and alternatives were the patient. All questions answered prior to attending the operating suite. Operative Findings: Appropriate flush and withdrawal from the Mediport Description of Procedure: Patient was brought to the operating suite and placed in supine position on the operating table. Sedation was provided by anesthesia and the patient underwent endotracheal intubation. Patient was then prepped and draped in regular sterile fashion. Local anesthetic was administered and the right subclavian vein was entered on first attempt. Nonpulsatile dark blood was withdrawn. Guidewire was then placed and location was confirmed under fluoroscopic guidance. At this point local anesthetic was administered to create the pocket for the port. Incision was made and dissection was carried to the prepectoralis fascia. Dissection was carried to free up space for the port. At this point a small incision was made at the guidewire insertion site and a tunnel was created between this guidewire site and the pocket and catheter was placed. Dilator sheath was then placed over the guidewire under fluoroscopic guidance and catheter was then placed. Catheter was noted to be in appropriate position and was connected to the port and port was placed in the pocket. Appropriate flush and withdrawal was noted from the port site. The port was then secured to the prepectoralis fascia in 2 separate locations. Fluoroscopic guidance confirmed location with no kinks in the catheter. Heparin lock was placed. The wound was then closed in layers with 3-0 Vicryl and 4-0 Vicryl subcuticular suture. Sterile dressing was applied. The patient was then taken to postanesthesia care unit in stable condition with pending chest x-ray.
--- NOTE | 2024-08-09 12:41 | XR ---
EXAMINATION TYPE: XR chest 1V confirm line plcmt DATE OF EXAM: 08/09/2024 12:31 PM COMPARISON: Fluoroscopic images of the same date, PET CT 07/27/2024 TECHNIQUE: XR chest 1V confirm line plcmt Portable AP radiograph of the chest. CLINICAL INDICATION:Female, 78 years old with history of Mediport placement; FINDINGS: Lungs/Pleura: There is no evidence of pleural effusion, focal consolidation, or pneumothorax. Pulmonary vascularity: Unremarkable. Heart/mediastinum: Cardiomediastinal silhouette is prominent in size. Musculoskeletal: No acute osseous pathology. Other findings: None Lines/Tubes: Right chest subclavian approach Mediport catheter distal tip in the mid SVC. IMPRESSION: Right chest subclavian approach Mediport catheter distal tip in the mid SVC. No pneumothorax. [facility], , 08/09/2024 12:39 PM
[2024-08-09 12:52] VITALS: BP 135/58; PULSE 68
== END 2024-08-09 13:10 | disposition home or self-care (01) ==
LOC: OR 09:20
PROVIDERS: ATTEND Surgery
DX: C21.0 Malignant neoplasm of anus, unspecified (principal); K57.32 Diverticulitis of large intestine without perforation or abscess without bleeding; F12.90 Cannabis use, unspecified, uncomplicated; L51.1 Stevens-Johnson syndrome; M19.90 Unspecified osteoarthritis, unspecified site; Z88.2 Allergy status to sulfonamides; Z86.79 Personal history of other diseases of the circulatory system; Z91.040 Latex allergy status; Z88.7 Allergy status to serum and vaccine; Z88.1 Allergy status to other antibiotic agents; Z79.899 Other long term (current) drug therapy
CPT/HCPCS: 77001; 36561; C1788; J2250; J1100; J0690; J2405; J2003; J3010; J1642; J2704; J2371; J0665

== ENCOUNTER 2024-10-09 09:41 | Inpatient (IN) | payer MEDICARE, BC ==
--- NOTE | 2024-10-09 10:44 | ED ---
General Adult HPI - General Chief complaint: Weakness Stated complaint: weakness/NVD Time Seen by Provider: 10/09/24 10:18 Source: patient, RN notes reviewed Mode of arrival: ambulatory Limitations: no limitations - History of Present Illness Initial comments: 79-year-old female presents to the emergency department for evaluation of generalized weakness. Patient notes that this has been going on for 1 to 2 weeks. She does note that she has recently received chemotherapy and radiation treatment. Her last treatment was less than a week ago. She states that she is so weak that she is having difficulty walking to the bathroom. She notes associated nausea, vomiting. She is having difficulty tolerating p.o. intake. She denies any fever. She does endorse chills. Denies any chest pain or shortness of breath. - Related Data Home Medications Medication Instructions Recorded Confirmed Multivitamins, Thera [Multivitamin 1 tab PO DAILY 12/12/20 10/09/24 (formulary)] Magnesium 250 mg PO DAILY 03/07/24 10/09/24 Cyanocobalamin [Vitamin B-12] 500 mcg PO DAILY 10/09/24 10/09/24 Diphenoxylate HCl/Atropine 2 tab PO QID PRN 10/09/24 10/09/24 [Lomotil 2.5-0.025 mg Tablet] HYDROcodone/APAP 5-325MG [Holden 1 tab PO BID PRN 10/09/24 10/09/24 5-325] Ondansetron [Zofran] 4 - 8 mg PO Q4H PRN 10/09/24 10/09/24 Vitamin D3/Vitamin K2 (Mk4) 1 tab PO DAILY 10/09/24 10/09/24 [Vitamin K2 Plus D3 Tablet] Allergies Allergy/AdvReac Type Severity Reaction Status Date / Time ciprofloxacin [From Cipro] Allergy WILLIAM Verified 10/09/24 14:32 KAREL SYN. Influenza Virus Vaccines Allergy William Verified 10/09/24 14:32 Karel Syndrome latex Allergy Rash/Hives Verified 10/09/24 14:32 metronidazole [From Flagyl] Allergy WILLIAM Verified 10/09/24 14:32 KAREL SYN sulfamethoxazole Allergy Unknown Verified 10/09/24 14:32 [From Bactrim] trimethoprim [From Bactrim] Allergy Unknown Verified 10/09/24 14:32 Review of Systems ROS Statement: Those systems with pertinent positive or pertinent negative responses have been documented in the HPI. ROS Other: All systems not noted in ROS Statement are negative. Past Medical History Past Medical History: Cancer, Osteoarthritis (OA) Additional Past Medical History / Comment(s): HX OF WILLIAM KAREL'S SYNDROME, HX OF VIRAL MYOCARDITIS, HX OF DIVERTICULITIS; recent dx squamous cell cancer to anal area. hx of benign polyps. History of Any Multi-Drug Resistant Organisms: None Reported Past Surgical History: Section, Tubal Ligation Additional Past Surgical History / Comment(s): GROESHON CATHETER PLACED AND LATER REMOVED FOR ANTIVIRAL DRUG FOR VIRAL MYOCARDITIS, colonoscopy X2, cataract surgery. Lt elbow [id number] lalit. Bi lat cataract removal with lens implant. surgery to remove anal cancer Past Anesthesia/Blood Transfusion Reactions: No Reported Reaction Additional Past Anesthesia/Blood Transfusion Reaction / Comment(s): STATES WAS AWAKE DURING COLONOSCOPY- "I wasn't competely out." "They had to give me more medicine to put me out.' Past Psychological History: No Psychological Hx Reported Smoking Status: Never smoker Past Alcohol Use History: None Reported Past Drug Use History: None Reported - Past Family History Brother(s) Additional Family Medical History / Comment(s): PROSTATE CANCER. Mother Family Medical History: Diabetes Mellitus General Exam Limitations: no limitations General appearance: alert, in no apparent distress Head exam: Present: atraumatic, normocephalic, normal inspection Eye exam: Present: normal appearance, PERRL, EOMI. Absent: scleral icterus, c onjunctival injection, periorbital swelling ENT exam: Present: normal exam, mucous membranes moist Respiratory exam: Present: normal lung sounds bilaterally. Absent: respiratory distress, wheezes, rales, rhonchi, stridor Cardiovascular Exam: Present: regular rate, normal rhythm, normal heart sounds. Absent: systolic murmur, diastolic murmur, rubs, gallop, clicks GI/Abdominal exam: Present: soft, tenderness, normal bowel sounds. Absent: distended, guarding, rebound, rigid Extremities exam: Present: normal inspection, full ROM, normal capillary refill. Absent: tenderness, pedal edema, joint swelling, calf tenderness Back exam: Present: normal inspection Neurological exam: Present: alert, oriented X3 Psychiatric exam: Present: normal affect, normal mood Skin exam: Present: warm, dry, intact, normal color. Absent: rash Course Vital Signs 10/09/24 10/09/24 10/09/24 09:48 13:00 17:00 Temperature 98.6 F Pulse Rate 97 92 86 Respiratory 20 16 18 Rate Blood Pressure 120/75 136/68 157/80 O2 Sat by Pulse 98 96 99 Oximetry 10/09/24 20:30 Temperature Pulse Rate 93 Respiratory 12 Rate Blood Pressure 153/88 O2 Sat by Pulse 97 Oximetry Medical Decision Making - Medical Decision Making Was pt. sent in by a medical professional or institution (, PA, SHOT COAT TENDER, urgent care, hospital, or usp...) When possible be specific @ -No Did you speak to anyone other than the patient for history (EMS, parent, family, police, friend...)? What history was obtained from this source @ -No Did you review nursing and triage notes (agree or disagree)? Why? @ -I reviewed and agree with nursing and triage notes Were old charts reviewed (outside hosp., previous admission, EMS record, old EKG, old radiological studies, urgent care reports/EKG's, usp records)? Report findings @ -No old charts were reviewed Differential Diagnosis (chest pain, altered mental status, abdominal pain women, abdominal pain men, vaginal bleeding, weakness, fever, dyspnea, syncope, headache, dizziness, GI bleed, back pain, seizure, CVA, palpatations, mental health, musculoskeletal)? @ -Differential Weakness: Hypoglycemia, shock, sepsis, hyponatremia, anemia, infection, MS, ETOH, adverse medicine reaction, overdose, stroke, this is not meant to be an all-inclusive list. EKG interpreted by me (3pts min.). @ -EKG at 1029 shows sinus rhythm rate 92, AL 179, QRS 97 X-rays interpreted by me (1pt min.). @ -None done CT interpreted by me (1pt min.). @ -CT of the abdomen pelvis reveals findings consistent with ileitis U/S interpreted by me (1pt. min.). @ -None done What testing was considered but not performed or refused? (CT, X-rays, U/S, labs)? Why? @ -None What meds were considered but not given or refused? Why? @ -None Did you discuss the management of the patient with other professionals (professionals i.e. , PA, SHOT COAT TENDER, lab, RT, psych nurse, case management social worker, job analysis manager, teacher, booking officer, case picker)? Give summary @ -Case discussed with Dr. Carranza who was accepting of the admission Was smoking cessation discussed for >3mins.? @ -No Was critical care preformed (if so, how long)? @ -No Were there social determinants of health that impacted care today? How? (Homelessness, low income, unemployed, alcoholism, drug addiction, transportation, low edu. Level, literacy, decrease access to med. care, correction, rehab)? @ -No Was there de-escalation of care discussed even if they declined (Discuss DNR or withdrawal of care, Hospice)? DNR status @ -No What co-morbidities impacted this encounter? (DM, HTN, Smoking, COPD, CAD, Cancer, CVA, ARF, Chemo, Hep., AIDS, mental health diagnosis, sleep apnea, morbid obesity)? @ -None Was patient admitted / discharged? Hospital course, mention meds given and route , prescriptions, significant lab abnormalities, going to OR and other pertinent info. @ -Admitted.Patient presented the emergency department for evaluation of generalized weakness. Laboratory studies obtained revealing leukopenia at 0.7 WBCs, hemoglobin 11.7; normal coagulation studies CMP is nonactionable UA shows 4+ ketones, 1+ glucose, 1+ protein which is likely due to dehydration. Patient had a negative stool occult. CT abdomen pelvis obtained revealing findings consistent with ileitis likely due to the patient's chemotherapy and radiation. Patient will be admitted to the hospital with oncology consultation. She is understanding agreeable plan. Patient stable at time of admission. Case discussed with Dr. Guzman Undiagnosed new problem with uncertain prognosis? @ -No Drug Therapy requiring intensive monitoring for toxicity (Heparin, Nitro, Insulin, Cardizem)? @ -No Were any procedures done? @ -No Diagnosis/symptom? @ -Generalized weakness Acute, or Chronic, or Acute on Chronic? @ -Acute Uncomplicated (without systemic symptoms) or Complicated (systemic symptoms)? @ -Uncomplicated Side effects of treatment? @ -No Exacerbation, Progression, or Severe Exacerbation? @ -No Poses a threat to life or bodily function? How? (Chest pain, USA, MS, pneumonia, PE, COPD, DKA, ARF, appy, cholecystitis, CVA, Diverticulitis, Homicidal, Suicidal, threat to staff... and all critical care pts) @ -No - Lab Data Result diagrams: 10/13/24 02:53 10/13/24 02:53 Lab Results 10/09/24 10/09/24 10/09/24 Range/Units 11:54 11:54 11:54 WBC 0.70 L* (4.50-10.00) 10*3/uL RBC 3.58 L (4.10-5.20) 10*6/uL Hgb 11.7 L (12.0-15.0) g/dL Hct 32.9 L (37.2-46.3) % MCV 91.9 (80.0-97.0) fL MCH 32.7 H (27.0-32.0) pg MCHC 35.6 (32.0-37.0) g/dL Plt Count 118 L (140-440) 10*3/uL MPV 10.6 (9.5-12.2) fL Immature Gran % (Auto) 0 % Immature Gran # 0.00 (0.00-0.04) 10*3/uL Differential Comment Manual Slide Review Performed Immature Plt Fraction 3.4 (1.1-6.1) % Anisocytosis (manual) Present PT 10.8 (10.0-12.5) sec INR 1.0 (<1.2) APTT 22.3 (22.0-30.0) sec Sodium 136 L (137-145) mmol/L Potassium 3.9 (3.5-5.1) mmol/L Chloride 103 (98-107) mmol/L Carbon Dioxide 21 L (22-30) mmol/L Anion Gap 12 mmol/L BUN 9 (7-17) mg/dL Creatinine 0.50 L (0.52-1.04) mg/dL Est GFR (CKD-EPI)AfAm >90 (>60 ml/min/1.73 sqM) Est GFR (CKD-EPI)NonAf >90 (>60 ml/min/1.73 sqM) Glucose 114 H (74-99) mg/dL Plasma Lactic Acid Moreno (0.7-2.0) mmol/L Calcium 8.7 (8.4-10.2) mg/dL Magnesium 2.0 (1.6-2.3) mg/dL Total Bilirubin 0.7 (0.2-1.3) mg/dL AST 22 (14-36) U/L ALT 27 (4-34) U/L Alkaline Phosphatase 52 (38-126) U/L Troponin I (0.000-0.034) ng/mL Total Protein 5.5 L (6.3-8.2) g/dL Albumin 3.2 L (3.5-5.0) g/dL Urine Color Urine Appearance (Clear) Urine pH (5.0-8.0) Ur Specific [place] (1.001-1.035) Urine Protein (Negative) Urine Glucose (UA) (Negative) Urine Ketones (Negative) Urine Blood (Negative) Urine Nitrite (Negative) Urine Bilirubin (Negative) Urine Urobilinogen (<2.0) mg/dL Ur Leukocyte Esterase (Negative) Urine RBC (0-5) /hpf Urine WBC (0-5) /hpf Ur Squamous Epith Cells (0-4) /hpf Hyaline Casts (0-2) /lpf Urine Mucus (None) /hpf Stool Occult Blood (Negative) Blood Type Blood Type Confirm Blood Type Recheck Bld Type Recheck Status Antibody Screen Spec Expiration Date 10/09/24 10/09/24 10/09/24 Range/Units 11:54 11:54 11:54 WBC (4.50-10.00) 10*3/uL RBC (4.10-5.20) 10*6/uL Hgb (12.0-15.0) g/dL Hct (37.2-46.3) % MCV (80.0-97.0) fL MCH (27.0-32.0) pg MCHC (32.0-37.0) g/dL Plt Count (140-440) 10*3/uL MPV (9.5-12.2) fL Immature Gran % (Auto) % Immature Gran # (0.00-0.04) 10*3/uL Differential Comment Manual Slide Review Immature Plt Fraction (1.1-6.1) % Anisocytosis (manual) PT (10.0-12.5) sec INR (<1.2) APTT (22.0-30.0) sec Sodium (137-145) mmol/L Potassium (3.5-5.1) mmol/L Chloride (98-107) mmol/L Carbon Dioxide (22-30) mmol/L Anion Gap mmol/L BUN (7-17) mg/dL Creatinine (0.52-1.04) mg/dL Est GFR (CKD-EPI)AfAm (>60 ml/min/1.73 sqM) Est GFR (CKD-EPI)NonAf (>60 ml/min/1.73 sqM) Glucose (74-99) mg/dL Plasma Lactic Acid Moreno 1.1 (0.7-2.0) mmol/L Calcium (8.4-10.2) mg/dL Magnesium (1.6-2.3) mg/dL Total Bilirubin (0.2-1.3) mg/dL AST (14-36) U/L ALT (4-34) U/L Alkaline Phosphatase (38-126) U/L Troponin I 0.014 (0.000-0.034) ng/mL Total Protein (6.3-8.2) g/dL Albumin (3.5-5.0) g/dL Urine Color Urine Appearance (Clear) Urine pH (5.0-8.0) Ur Specific [place] (1.001-1.035) Urine Protein (Negative) Urine Glucose (UA) (Negative) Urine Ketones (Negative) Urine Blood (Negative) Urine Nitrite (Negative) Urine Bilirubin (Negative) Urine Urobilinogen (<2.0) mg/dL Ur Leukocyte Esterase (Negative) Urine RBC (0-5) /hpf Urine WBC (0-5) /hpf Ur Squamous Epith Cells (0-4) /hpf Hyaline Casts (0-2) /lpf Urine Mucus (None) /hpf Stool Occult Blood (Negative) Blood Type A Positive Blood Type Confirm Blood Type Recheck No Previous Record Bld Type Recheck Status CABO Indicated Antibody Screen NEGATIVE Spec Expiration Date 10/12/2024235310/09/24 10/09/24 10/09/24 Range/Units 12:25 12:25 14:18 WBC (4.50-10.00) 10*3/uL RBC (4.10-5.20) 10*6/uL Hgb (12.0-15.0) g/dL Hct (37.2-46.3) % MCV (80.0-97.0) fL MCH (27.0-32.0) pg MCHC (32.0-37.0) g/dL Plt Count (140-440) 10*3/uL MPV (9.5-12.2) fL Immature Gran % (Auto) % Immature Gran # (0.00-0.04) 10*3/uL Differential Comment Manual Slide Review Immature Plt Fraction (1.1-6.1) % Anisocytosis (manual) PT (10.0-12.5) sec INR (<1.2) APTT (22.0-30.0) sec Sodium (137-145) mmol/L Potassium (3.5-5.1) mmol/L Chloride (98-107) mmol/L Carbon Dioxide (22-30) mmol/L Anion Gap mmol/L BUN (7-17) mg/dL Creatinine (0.52-1.04) mg/dL Est GFR (CKD-EPI)AfAm (>60 ml/min/1.73 sqM) Est GFR (CKD-EPI)NonAf (>60 ml/min/1.73 sqM) Glucose (74-99) mg/dL Plasma Lactic Acid Moreno (0.7-2.0) mmol/L Calcium (8.4-10.2) mg/dL Magnesium (1.6-2.3) mg/dL Total Bilirubin (0.2-1.3) mg/dL AST (14-36) U/L ALT (4-34) U/L Alkaline Phosphatase (38-126) U/L Troponin I (0.000-0.034) ng/mL Total Protein (6.3-8.2) g/dL Albumin (3.5-5.0) g/dL Urine Color Yellow Urine Appearance Clear (Clear) Urine pH 5.5 (5.0-8.0) Ur Specific [place] 1.028 (1.001-1.035) Urine Protein 1+ H (Negative) Urine Glucose (UA) 1+ H (Negative) Urine Ketones 4+ H (Negative) Urine Blood Small H (Negative) Urine Nitrite Negative (Negative) Urine Bilirubin 1+ H (Negative) Urine Urobilinogen 2.0 (<2.0) mg/dL Ur Leukocyte Esterase Negative (Negative) Urine RBC 5 (0-5) /hpf Urine WBC 4 (0-5) /hpf Ur Squamous Epith Cells <1 (0-4) /hpf Hyaline Casts 7 H (0-2) /lpf Urine Mucus Moderate H (None) /hpf Stool Occult Blood Negative (Negative) Blood Type Blood Type Confirm A Positive Blood Type Recheck Bld Type Recheck Status Antibody Screen Spec Expiration Date Disposition Clinical Impression: Generalized weakness, Ileitis, Leukopenia Disposition: ADMITTED IP TO THIS HOSP Condition: Stable Is patient prescribed a controlled substance at d/c from ED?: No
[2024-10-09] MEDS: ONDANSETRON 4 MG/2 ML VIAL IVP STA (11:45)
[2024-10-09] MEDS: LACTATED RINGERS 1,000 ML IV ONE (11:49)
[2024-10-09 12:25] LABS: HCT 32.9 % (37.2-46.3); HGB 11.7 g/dL (12.0-15.0); Immature Platelet Fraction 3.4 % (1.1-6.1); MCH 32.7 pg (27.0-32.0); MCHC 35.6 g/dL (32.0-37.0); MCV 91.9 fL (80.0-97.0); Platelet Count 118 10*3/uL (140-440); RBC 3.58 10*6/uL (4.10-5.20); RDW 13.2 % (11.5-14.5)
[2024-10-09 12:32] LABS: WBC 0.70 10*3/uL (4.50-10.00)
[2024-10-09 12:41] LABS: Bilirubin,Urine 1+ (Negative); Blood,Urine Small (Negative); Color,Urine Yellow; Glucose,Urine (UA) 1+ (Negative); Hyaline Casts,Urine 7 /lpf (0-2); Leukocyte Esterase,Urine Negative (Negative); Mucus,Urine Moderate /hpf; Nitrite,Urine Negative (Negative); PH, Urine 5.5 (5.0-8.0); Protein,Urine 1+ (Negative); RBC,Urine 5 /hpf (0-5); Specific Gravity,Urine 1.028 (1.001-1.035); Squamous Epithelial Cell,Urine <1 /hpf (0-4); Urobilinogen,Urine 2.0 mg/dL (<2.0); WBC,Urine 4 /hpf (0-5)
[2024-10-09 12:44] LABS: ALT 27 U/L (4-34); AST 22 U/L (14-36); African American GFR (CKD) >90 (>60 ml/min/1.73 sqM); Albumin 3.2 g/dL (3.5-5.0); Alkaline Phosphatase 52 U/L (38-126); Anion Gap 12 mmol/L; Blood Urea Nitrogen 9 mg/dL (7-17); Calcium 8.7 mg/dL (8.4-10.2); Carbon Dioxide 21 mmol/L (22-30); Chloride 103 mmol/L (98-107); Glucose 114 mg/dL (74-99); Magnesium 2.0 mg/dL (1.6-2.3); Non-African American GFR(CKD) >90 (>60 ml/min/1.73 sqM); Potassium 3.9 mmol/L (3.5-5.1); Sodium 136 mmol/L (137-145); Total Protein 5.5 g/dL (6.3-8.2)
[2024-10-09 12:49] LABS: Ketones,Urine 4+ (Negative)
[2024-10-09 12:51] LABS: Anisocytosis (M) Present
[2024-10-09 12:52] LABS: INR 1.0 (<1.2); Partial Thromboplastin Time 22.3 sec (22.0-30.0); Prothrombin Time 10.8 sec (10.0-12.5)
--- NOTE | 2024-10-09 15:16 | CT ---
EXAMINATION TYPE: CT abdomen pelvis w con DATE OF EXAM: 10/09/2024 2:56 PM COMPARISON: 05/29/2024 PET/CT CLINICAL INDICATION: Female, 79 years old with history of abd pain, Abd pain, weakness, N/V/D. TECHNIQUE: Axial images were obtained from above the diaphragm to the pubic rami in the axial plane a t 5 mm thick sections. Reconstructed images are reviewed on the computer in the coronal plane. CONTRAST: 100 ml mL of Isovue 300. Study performed without Oral Contrast DLP: 694.8 mGycm, Automated exposure control for dose reduction was used. FINDINGS: Limited CT sections are obtained the lung bases. The lung bases are clear. Small hiatal hernia is p resent. CT ABDOMEN: Liver: Normal Spleen: Normal Pancreas: Normal Adrenal glands: The adrenal glands are normal. Gallbladder: Normal Kidneys: No masses are evident. No hydronephrosis is present. Peripelvic cysts are present bilatera lly. Delayed images were obtained through the kidneys, which remain unremarkable. Aorta: Vascular calcification is within the aorta. Inferior vena cava: Normal. CT PELVIS: There is thickening of the distal ileum proximal ascending colon. Correlate for ileitis. Crohn's dise ase could be considered. There is some inflammatory change adjacent to the cecum. There are few diverticuli without adjacent inflammatory changes within the sigmoid colon. thickenin g. The study is without oral contrast limiting bowel evaluation. Appendix: Normal as visualized. This is limited in evaluation. Urinary bladder: Normal. Genitourinary structures: There is a 2.1 cm cyst on the right ovary. Left adnexa appears normal. Foll icle may be present. Uterus is unremarkable. Osseous structures: No suspicious lytic or sclerotic lesions. IMPRESSION: 1. Thickened wall through the distal ileum and proximal ascending colon and cecum. Correlate for ile itis. Consider Crohn's disease. 2. Diverticulosis without acute diverticulitis. 3. Right ovarian cyst. [facility], , 10/09/2024 3:14 PM
[2024-10-09] MEDS ORDERED: HYDROmorphone 0.5 MG/0.5 ML SYRINGE IVP PRN (15:47)
[2024-10-09] MEDS ORDERED: HYDROmorphone 1 MG/ML 1 ML SYRINGE IVP PRN (15:47)
[2024-10-09] MEDS ORDERED: NALOXONE 0.4 MG/ML 1 ML VIAL IV PRN (15:47)
[2024-10-09] MEDS: SODIUM CHLORIDE 0.9% 1,000 ML IV SCH (17:01)
[2024-10-09] MEDS: PROCHLORPERAZINE 5 MG TAB PO PRN (20:26)
[2024-10-10] MEDS: KETOROLAC 15 MG/ML 1 ML VIAL IVP PRN (02:38)
[2024-10-10] MEDS: ACETAMINOPHEN TAB 325 MG TAB PO PRN (08:18)
--- NOTE | 2024-10-10 13:48 | P.HPIM ---
History of Present Illness H&P Date: 10/10/24 Marquita Copeland is a 79-year-old female patient who presented with concerns of weakness following chemotherapy. Patient is currently getting treatment for anal cancer and received her second dose of chemotherapy and felt significantly weak with nausea vomiting. Additional medical history includes osteoarthritis, Jessica-Karel syndrome, bile viral myocarditis, diverticulitis. Abdominal pelvis CT completed showing thickened wall through the distal ileum and proximal ascending colon and cecum correlate for ileitis consider Crohn's disease diverticulosis without acute diverticulitis right ovarian cyst. Lab work completed showing white blood cell 0.70, hemoglobin 11.7, creatinine 0.50 bun 9 stool for occult blood negative UA negative. At this time patient will be admitted patient states she feels much improved. Continue with IV fluid and symptomatic management oncology services are following patient maintained on clear liquid diet stool for C. difficile ordered. Current vital signs temp 100.9, heart rate 91, respiratory rate 18, blood pressure 158/78 with a pulse ox of 97% on room air. Will consult infectious disease services due to leukopenia and fever. 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 hx of benign polyps. History of Any Multi-Drug Resistant Organisms: None Reported Past Surgical History: Section, Tubal Ligation Additional Past Surgical History / Comment(s): GROESHON CATHETER PLACED AND LATER REMOVED FOR ANTIVIRAL DRUG FOR VIRAL MYOCARDITIS, colonoscopy X2, cataract surgery. Lt elbow [id number] lalit. Bi lat cataract removal with lens implant. surgery to remove anal cancer Past Anesthesia/Blood Transfusion Reactions: No Reported Reaction Additional Past Anesthesia/Blood Transfusion Reaction / Comment(s): STATES WAS AWAKE DURING COLONOSCOPY- "I wasn't competely out." "They had to give me more medicine to put me out.' Past Psychological History: No Psychological Hx Reported Smoking Status: Never smoker Past Alcohol Use History: None Reported Past Drug Use History: None Reported Additional Drug Use History / Comment(s): TAKE MARIJUANA CAPSULES THAT CONTAIN OIL, BUT NO THC. INSTRUCTED TO HOLD 24 HRS PRIOR TO PROCEDURE. - Past Family History Brother(s) Additional Family Medical History / Comment(s): PROSTATE CANCER. Mother Family Medical History: Diabetes Mellitus Medications and Allergies Home Medications Medication Instructions Recorded Confirmed Type Multivitamins, Thera [Multivitamin 1 tab PO DAILY 12/12/20 10/09/24 History (formulary)] Magnesium 250 mg PO DAILY 03/07/24 10/09/24 History Cyanocobalamin [Vitamin B-12] 500 mcg PO DAILY 10/09/24 10/09/24 History Diphenoxylate HCl/Atropine 2 tab PO QID PRN 10/09/24 10/09/24 History [Lomotil 2.5-0.025 mg Tablet] HYDROcodone/APAP 5-325MG [[place] 1 tab PO BID PRN 10/09/24 10/09/24 History 5-325] Ondansetron [Zofran] 4 - 8 mg PO Q4H PRN 10/09/24 10/09/24 History Vitamin D3/Vitamin K2 (Mk4) 1 tab PO DAILY 10/09/24 10/09/24 History [Vitamin K2 Plus D3 Tablet] Allergies Allergy/AdvReac Type Severity Reaction Status Date / Time ciprofloxacin [From Cipro] Allergy WILLIAM Verified 10/09/24 14:32 KAREL SYN. Influenza Virus Vaccines Allergy William Verified 10/09/24 14:32 Karel Syndrome latex Allergy Rash/Hives Verified 10/09/24 14:32 metronidazole [From Flagyl] Allergy WILLIAM Verified 10/09/24 14:32 KAREL SYN sulfamethoxazole Allergy Unknown Verified 10/09/24 14:32 [From Bactrim] trimethoprim [From Bactrim] Allergy Unknown Verified 10/09/24 14:32 Physical Exam Vitals: Vital Signs Temp Pulse Pulse Resp BP BP Pulse Ox 10/10/24 12:45 98.5 F 10/10/24 09:33 99.0 F 18 10/10/24 08:12 100.9 F H 10/10/24 07:42 18 10/10/24 07:15 100 F H 91 16 158/78 97 10/10/24 02:00 99.4 F 90 14 152/85 99 10/09/24 22:45 97 18 145/74 100 10/09/24 20:30 93 12 153/88 97 10/09/24 17:00 86 18 157/80 99 Intake and Output 10/09/24 10/10/24 10/10/24 22:59 06:59 14:59 Other: # Voids 1 Weight 59.874 kg Head normocephalic Neck supple Lungs clear to auscultation bilaterally no wheezing or crackles Heart regular rate and rhythm S1-S2, no rub or gallop Abdomen is soft nontender nondistended positive bowel sounds no hepatosplenomegaly Extremities no edema Neuro alert and orientated to 3 Results CBC & Chem 7: 10/09/24 11:54 10/09/24 11:54 Thrombosis Risk Factor Assmnt - Choose All That Apply Other Risk Factors: Yes Each Risk Factor Represents 2 Points: Age 61-74 years Thrombosis Risk Factor Assessment Total Risk Factor Score: 2 Thrombosis Risk Factor Assessment Level: Low Risk Assessment and Plan Assessment: 1. Generalized weakness 2. Nausea vomiting secondary to ileitis 3. Febrile 4. Currently getting chemo and radiation for anal cancer 5. Leukopenia secondary to chemo treatment 6. History of William Karel syndrome 7. History of viral myocarditis DVT prophylaxis SCDs. GI prophylax Protonix Oncology and infectious disease services consulted Repeat labs ordered Continue normal saline at 75 Blood culture ordered
[2024-10-10 14:49] LABS: RSV Not Detected (Not Detectd)
[2024-10-10] MEDS: PIPERACILLIN-TAZOBACTAM 3.375 GM in SODIUM CHLORIDE 0.9% 100 ML IVPB SCH (15:30)
[2024-10-10] MEDS: FILGRASTIM-SNDZ 300 MCG/0.5 ML SYRINGE SQ SCH (18:54)
--- NOTE | 2024-10-10 20:19 | P.CONS ---
History of Present Illness - Reason for Consult Consult date: 10/10/24 Chemo, rectal carcinoma Requesting physician: Esther Parisi - Chief Complaint weakness, inability to tolerate oral intake - History of Present Illness Ms. Copeland is a female pt of Dr. Webb with squamous cell carcinoma of the rectum, who just completed mitomycin/5FU days 1 and 29 with 5 day pump, concurrent radiation. I do not have all of the diagnosis information from her ofc chart but, this is a curative intent regimen. Pt reported that she could no longer tolerate oral intake due to oral irritation, she has stomach c/o including nausea, abd bloating and discomfort af ter eating, reports dysuria, no hematuria, she has been having incontinence of stool for which she has been wearing a brief. She reports she is paaing gas and she has woken in the AM to find mucus/slime residue in her brief, she did not report blood. She had a fever on admit, pancultures pending. WBC 0.7, Hgb 11.7, plt 118,000. CT AP with contrast reporting cecal/colon ilietus. 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 hx of benign polyps. History of Any Multi-Drug Resistant Organisms: None Reported Past Surgical History: Section, Tubal Ligation Additional Past Surgical History / Comment(s): GROESHON CATHETER PLACED AND LATER REMOVED FOR ANTIVIRAL DRUG FOR VIRAL MYOCARDITIS, colonoscopy X2, cataract surgery. Lt elbow [id number] lalit. Bi lat cataract removal with lens implant. surgery to remove anal cancer Past Anesthesia/Blood Transfusion Reactions: No Reported Reaction Additional Past Anesthesia/Blood Transfusion Reaction / Comm: STATES WAS AWAKE DURING COLONOSCOPY- "I wasn't competely out." "They had to give me more medicine to put me out.' Past Psychological History: No Psychological Hx Reported Smoking Status: Never smoker Past Alcohol Use History: None Reported Past Drug Use History: None Reported Additional Drug Use History / Comment(s): TAKE MARIJUANA CAPSULES THAT CONTAIN OIL, BUT NO THC. INSTRUCTED TO HOLD 24 HRS PRIOR TO PROCEDURE. - Past Family History Brother(s) Additional Family Medical History / Comment(s): PROSTATE CANCER. Mother Family Medical History: Diabetes Mellitus Medications and Allergies Home Medications Medication Instructions Recorded Confirmed Type Multivitamins, Thera [Multivitamin 1 tab PO DAILY 12/12/20 10/09/24 History (formulary)] Magnesium 250 mg PO DAILY 03/07/24 10/09/24 History Cyanocobalamin [Vitamin B-12] 500 mcg PO DAILY 10/09/24 10/09/24 History Diphenoxylate HCl/Atropine 2 tab PO QID PRN 10/09/24 10/09/24 History [Lomotil 2.5-0.025 mg Tablet] HYDROcodone/APAP 5-325MG [[place] 1 tab PO BID PRN 10/09/24 10/09/24 History 5-325] Ondansetron [Zofran] 4 - 8 mg PO Q4H PRN 10/09/24 10/09/24 History Vitamin D3/Vitamin K2 (Mk4) 1 tab PO DAILY 10/09/24 10/09/24 History [Vitamin K2 Plus D3 Tablet] Allergies Allergy/AdvReac Type Severity Reaction Status Date / Time ciprofloxacin [From Cipro] Allergy WILLIAM Verified 10/09/24 14:32 KAREL SYN. Influenza Virus Vaccines Allergy William Verified 10/09/24 14:32 Karel Syndrome latex Allergy Rash/Hives Verified 10/09/24 14:32 metronidazole [From Flagyl] Allergy WILLIAM Verified 10/09/24 14:32 KAREL SYN sulfamethoxazole Allergy Unknown Verified 10/09/24 14:32 [From Bactrim] trimethoprim [From Bactrim] Allergy Unknown Verified 10/09/24 14:32 Physical Exam Vitals: Vital Signs Temp Pulse Pulse Resp BP BP Pulse Ox 10/10/24 14:23 99.7 F H 89 16 153/81 95 10/10/24 12:45 98.5 F 10/10/24 09:33 99.0 F 18 10/10/24 08:12 100.9 F H 10/10/24 07:42 18 10/10/24 07:15 100 F H 91 16 158/78 97 10/10/24 02:00 99.4 F 90 14 152/85 99 10/09/24 22:45 97 18 145/74 100 10/09/24 20:30 93 12 153/88 97 Intake and Output 10/10/24 10/10/24 10/10/24 06:59 14:59 22:59 Output Total 200 Balance -200 Output: Urine 200 Other: # Voids 1 - Constitutional General appearance: average body habitus, cooperative, no acute distress - EENT shallow oral ulcerations Eyes: anicteric sclerae, EOMI ENT: hearing grossly normal, pharyngeal erythema - Neck Neck: no lymphadenopathy - Respiratory Respiratory: bilateral: CTA - Cardiovascular Rhythm: regular Heart sounds: normal: S1, S2 Abnormal Heart Sounds: no systolic murmur, no diastolic murmur, no rub, no S3 Gallop, no S4 Gallop, no click, no other leg Peripheral Edema: bilateral: None - Gastrointestinal General gastrointestinal: no absent bowel sounds, decreased bowel sounds, no distended, no hepatomegaly, no hyperactive bowel sounds, no normal bowel sounds, no organomegaly, no rigid, no scaphoid, soft, no splenomegaly, tenderness, no umbilical hernia, no ventral hernia Localized gastrointestinal: tender: RLQ - Integumentary Integumentary: pale - Neurologic Neurologic: CNII-XII intact - Musculoskeletal Musculoskeletal: strength equal bilaterally - Psychiatric Psychiatric: A&O x's 3, appropriate affect, intact judgment & insight Results CBC & Chem 7: 10/09/24 11:54 10/09/24 11:54 CT scan - abdomen: report reviewed CT scan - pelvis: report reviewed Assessment and Plan (1) Ileitis Current Visit: Yes Status: Acute Priority: High Code(s): K52.9 - NONINFECTIVE GASTROENTERITIS AND COLITIS, UNSPECIFIED SNOMED Code(s): 20560549 (2) Antineoplastic chemotherapy induced pancytopenia Current Visit: Yes Status: Acute Priority: High Code(s): D61.810 - ANTINEOPLASTIC CHEMOTHERAPY INDUCED PANCYTOPENIA; T45.1X5A - ADVERSE EFFECT OF ANTINEOPLASTIC AND IMMUNOSUP DRUGS, INIT SNOMED Code(s): 680491797526000 (3) Mucositis (ulcerative) due to antineoplastic therapy Current Visit: Yes Status: Acute Priority: High Code(s): K12.31 - ORAL MUCOSITIS (ULCERATIVE) DUE TO ANTINEOPLASTIC THERAPY SNOMED Code(s): 5868324709 Plan: Pt admitted with fever, N, oral irritation, abd distension and discomfort after eating and dysuria. Ileitis -likely 2/2 treatment, low counts and radiation. -Bowel rest. Ice chips only, IV fluids Pancytopenia, chemo induced -Pancultures pending. Empiric abx ordered -Hgb and plt are not normal but in a safe range at this time. Will cont to monitor as she is at the beginning of wan. Transfuse for Hgb <7 or plt <10,000 or if pt is symptomatic -WBC/ANC are nil. GCSF started. -CBC daily -ID consulted Sq cell carcinoma of the rectum -Pt has completed definitive chemo/XRT, right around 09/28 -I will get details of diagnosis in f/u note -Pt did well with treatment overall -Cont f/u as sched with Med Onc chemo induced mucositis -oral supportive medications ordered -Will improve as pt WBC improves
[2024-10-10] MEDS: MAG HYDROX/AL HYDROX/SIMETH 30 ML, LIDOCAINE VISCOUS 2% 30 ML, diphenhydrAMINE ELIXIR 7... PO SCH (21:44)
[2024-10-10] MEDS: SALT AND SODA MOUTHWASH 1,000 ML PO SCH (22:40)
--- NOTE | 2024-10-10 22:42 | P.CONS ---
History of Present Illness - Reason for Consult Consult date: 10/10/24 Fever, chemo Requesting physician: Alexander Carranza - Chief Complaint Nausea vomiting and diarrhea x days - History of Present Illness Patient is a 79-year-old female with a past medical history significant for osteomyelitis, squamous cell carcinoma of the rectum who has completed her chemotherapy and is undergoing concurrent radiation presenting to the hospital for evaluation of nausea and vomiting along with abdominal bloating and did have diarrhea patient mention unable to keep anything down and feeling dehydrated patient did not recall having any high-grade fever however on presentation to hospital patient was initially afebrile she did spike a fever this morning of 100.9 F that has prompted this consultation patient was mildly tachycardic but not hypotensive or hypoxic no need for supplemental oxygen patient did have a white count 0.70 differential did not mention neutrophil count did have a creatinine 0.50 liver enzymes are normal urine has been negative influenza RSV COVID testing was negative patient did have abdominal pelvis CT which shows thickening 1 through the distal ileum and proximal ascending colon and cecum correlate for ileitis consider Crohn's disease infectious he was consulted for further management Review of Systems Positive point and negatives has been mentioned in the HPI, complete review of systems was performed and all other systems are negative Past Medical History Past Medical History: Cancer, Osteoarthritis (OA) Additional Past Medical History / Comment(s): HX OF WILLIAM KAREL'S SYNDROME, HX OF VIRAL MYOCARDITIS, HX OF DIVERTICULITIS; 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 hx of benign polyps. History of Any Multi-Drug Resistant Organisms: None Reported Past Surgical History: Section, Tubal Ligation Additional Past Surgical History / Comment(s): GROESHON CATHETER PLACED AND LATER REMOVED FOR ANTIVIRAL DRUG FOR VIRAL MYOCARDITIS, colonoscopy X2, cataract surgery. Lt elbow [id number] lalit. Bi lat cataract removal with lens implant. surgery to remove anal cancer Past Anesthesia/Blood Transfusion Reactions: No Reported Reaction Additional Past Anesthesia/Blood Transfusion Reaction / Comm: STATES WAS AWAKE DURING COLONOSCOPY- "I wasn't competely out." "They had to give me more medicine to put me out.' Past Psychological History: No Psychological Hx Reported Smoking Status: Never smoker Past Alcohol Use History: None Reported Past Drug Use History: None Reported Additional Drug Use History / Comment(s): TAKE MARIJUANA CAPSULES THAT CONTAIN OIL, BUT NO THC. INSTRUCTED TO HOLD 24 HRS PRIOR TO PROCEDURE. - Past Family History Brother(s) Additional Family Medical History / Comment(s): PROSTATE CANCER. Mother Family Medical History: Diabetes Mellitus Medications and Allergies Home Medications Medication Instructions Recorded Confirmed Type Multivitamins, Thera [Multivitamin 1 tab PO DAILY 12/12/20 10/09/24 History (formulary)] Magnesium 250 mg PO DAILY 03/07/24 10/09/24 History Cyanocobalamin [Vitamin B-12] 500 mcg PO DAILY 10/09/24 10/09/24 History Diphenoxylate HCl/Atropine 2 tab PO QID PRN 10/09/24 10/09/24 History [Lomotil 2.5-0.025 mg Tablet] HYDROcodone/APAP 5-325MG [[place] 1 tab PO BID PRN 10/09/24 10/09/24 History 5-325] Ondansetron [Zofran] 4 - 8 mg PO Q4H PRN 10/09/24 10/09/24 History Vitamin D3/Vitamin K2 (Mk4) 1 tab PO DAILY 10/09/24 10/09/24 History [Vitamin K2 Plus D3 Tablet] Allergies Allergy/AdvReac Type Severity Reaction Status Date / Time ciprofloxacin [From Cipro] Allergy WILLIAM Verified 10/09/24 14:32 KAREL SYN. Influenza Virus Vaccines Allergy William Verified 10/09/24 14:32 Karel Syndrome latex Allergy Rash/Hives Verified 10/09/24 14:32 metronidazole [From Flagyl] Allergy WILLIAM Verified 10/09/24 14:32 KAREL SYN sulfamethoxazole Allergy Unknown Verified 10/09/24 14:32 [From Bactrim] trimethoprim [From Bactrim] Allergy Unknown Verified 10/09/24 14:32 Physical Exam Vitals: Vital Signs Temp Pulse Pulse Resp BP BP Pulse Ox 10/10/24 12:45 98.5 F 10/10/24 09:33 99.0 F 18 10/10/24 08:12 100.9 F H 10/10/24 07:42 18 10/10/24 07:15 100 F H 91 16 158/78 97 10/10/24 02:00 99.4 F 90 14 152/85 99 10/09/24 22:45 97 18 145/74 100 10/09/24 20:30 93 12 153/88 97 10/09/24 17:00 86 18 157/80 99 Intake and Output 10/09/24 10/10/24 10/10/24 22:59 06:59 14:59 Output Total 200 Balance -200 Output: Urine 200 Other: # Voids 1 Weight 59.874 kg GENERAL DESCRIPTION: Elderly female lying in bed, no distress. No tachypnea or accessory muscle of respiration use. HEENT: Shows Pallor , no scleral icterus. Oral mucous membrane is dry. No pharyngeal erythema or thrush NECK: Trachea central, no thyromegaly. LUNGS: Unlabored breathing. Clear to auscultation anteriorly. No wheeze or crackle. HEART: S1, S2, regular rate and rhythm. No loud murmur ABDOMEN: Soft, no tenderness , EXTREMITIES: No edema of feet. SKIN: No rash, no masses palpable. NEUROLOGICAL: The patient is awake, alert, oriented x3, mood and affect normal. Results CBC & Chem 7: 10/09/24 11:54 10/09/24 11:54 Assessment and Plan (1) Sepsis Current Visit: Yes Status: Acute Code(s): A41.9 - SEPSIS, UNSPECIFIED ORGANISM SNOMED Code(s): 64556013 (2) Allergy to multiple antibiotics Current Visit: Yes Status: Acute Code(s): Z88.1 - ALLERGY STATUS TO OTHER ANTIBIOTIC AGENTS SNOMED Code(s): 624063356 (3) Ileitis Current Visit: Yes Status: Acute Priority: High Code(s): K52.9 - NONINFECTIVE GASTROENTERITIS AND COLITIS, UNSPECIFIED SNOMED Code(s): 20262810 Plan: 1patient is in the hospital with sepsis in this patient due to fever tachycardia and leukopenia with low white count bradycardia for both/sepsis as well as febrile neutropenia source is likely abdominal and this will treat him predominantly abdominal symptoms and concern for ileitis/typhlitis, will need to cover for enteric gram-negative both aerobes and anaerobes. 2patient with multiple antibiotic ALLERGIES that would limit the number of antibiotic safe to use. 3we will start the patient on Zosyn 3.375 g every 8 hours while waiting for the culture to finalize Question and concerns were answered We will follow on clinical condition and cultures to further adjust medication if needed Thank you for this consultation we will follow the patient along with you Dictation was produced using dragon dictation software. please excuse any grammatical, word or spelling errors. Time with Patient: Greater than 30
[2024-10-11] MEDS: PANTOPRAZOLE 40 MG TABLET PO SCH (06:02)
[2024-10-11 07:12] LABS: ALT 14 U/L (4-34); AST 17 U/L (14-36); African American GFR (CKD) >90 (>60 ml/min/1.73 sqM); Albumin 2.5 g/dL (3.5-5.0); Alkaline Phosphatase 43 U/L (38-126); Anion Gap 8 mmol/L; Blood Urea Nitrogen 18 mg/dL (7-17); Calcium 8.3 mg/dL (8.4-10.2); Carbon Dioxide 22 mmol/L (22-30); Chloride 108 mmol/L (98-107); Glucose 88 mg/dL (74-99); Non-African American GFR(CKD) 85 (>60 ml/min/1.73 sqM); Potassium 3.3 mmol/L (3.5-5.1); Sodium 138 mmol/L (137-145); Total Protein 4.7 g/dL (6.3-8.2)
[2024-10-11 07:39] LABS: HCT 29.1 % (37.2-46.3); HGB 10.2 g/dL (12.0-15.0); Immature Platelet Fraction 6.1 % (1.1-6.1); MCH 32.4 pg (27.0-32.0); MCHC 35.1 g/dL (32.0-37.0); MCV 92.4 fL (80.0-97.0); Platelet Count 103 10*3/uL (140-440); RBC 3.15 10*6/uL (4.10-5.20); RDW 13.7 % (11.5-14.5)
[2024-10-11 08:15] LABS: WBC 1.46 10*3/uL (4.50-10.00)
[2024-10-11 08:37] LABS: Anisocytosis (M) Present; Eosinophils # (M) 0.12 k/uL (0-0.7); Lymphocytes # (M) 0.22 k/uL (1.0-4.8); Monocytes # (M) 0.54 k/uL (0-1.0); Neutrophils # (M) 0.58 k/uL (1.3-7.7); Neutrophils % (M) 34 %; Total Cells Counted 100
--- NOTE | 2024-10-11 10:06 | CDI ---
Documentation Clarification Form Date: 10/11/2024 09:33:00 AM From: Maira Watson RN CCDS Phone: [phone] Admit Date: 10/09/2024 04:56:00 PM Patient Name: Marquita Copeland Visit Number: [id number] Discharge Date: ATTENTION: The Clinical Documentation Specialists (CDI) and [facility] Coding Staff appreciate your assistance in clarifying documentation. Please respond to the clarification below the line at the bottom and electronically sign. The CDI & [facility] Coding staff will review the response and follow-up if needed. Please note: Queries are made part of the Legal Health Record. If you have any questions, please contact the author of this message via ITS. Doctor: Alexander Carranza Your patient has Ileitis or findings, 10/10 HP. Based on this information and the findings below, is there an additional diagnosis that is clinically appropriate for this patient? Patient history/risk factors: 79 year old female presents to the ED with weakness following chemotherapy and radiation treatment. Patient is currently getting treatment for anal cancer. Medical History: Anal Cancer, OA, 10/10 HP Clinical Indicators: LABS, 10/09: Wbc 0.70. Serology 10/10: Cdiff Negative, Influenza Type A and Type B Not Detected; RSV and SARS-CoV2 Not Detected. ID Consult, 10/10: The patient has squamous cell carcinoma of the rectum who has completed her chemotherapy and is undergoing concurrent radiation presenting to the hospital for evaluation of nausea and vomiting along with abdominal bloating and did have diarrhea and unable to keep anything down. CT ABD PELV, 10/09: Thickened wall through the distal ileum and proximal ascending colon and cecum. Correlate for ileitis. Diverticulosis without acute diverticulitis. Treatment: 10/10 Piperacillin Sod/ Tazobactam Sod IVPB Q8H, 10/09 0.9NS IV 75cc/hr Is there an additional diagnosis that is clinically appropriate for this patient? [ x ] Ileitis due to antineoplastic therapy. [ ] No additional diagnosis/Not clinically significant [ ] Unable to determine [ ] Other, please specify (Template Last Reviewed: May 2022) AGA
--- NOTE | 2024-10-11 10:40 | CDI ---
Documentation Clarification Form Date: 10/11/2024 09:34:00 AM From: Maira Watson RN CCDS Phone: [phone] Admit Date: 10/09/2024 04:56:00 PM Patient Name: Marquita Copeland Visit Number: [id number] Discharge Date: ATTENTION: The Clinical Documentation Specialists (CDI) and [facility] Coding Staff appreciate your assistance in clarifying documentation. Please respond to the clarification below the line at the bottom and electronically sign. The CDI & [facility] Coding staff will review the response and follow-up if needed. Please note: Queries are made part of the Legal Health Record. If you have any questions, please contact the author of this message via ITS. Doctor: Alexander Carranza Your patient has Sepsis, 10/10 ID Consult. Based on this information and the findings below, is there an additional diagnosis that is clinically appropriate for this patient? Patient history/risk factors: 79 year old female presents to the ED with weakness following chemotherapy and radiation treatment. Patient is currently getting treatment for anal cancer. Medical History: Anal Cancer, OA, 10/10 HP Clinical Indicators: VSS, 10/09: B/P 120/75 HR 97 RR 20 SpO2 98% ra LABS, 10/09: Wbc 0.70. LABS. 10/10: Wbc 1.46, Neutrophils 0.58 Serology 10/10: Cdiff Negative, Influenza Type A and Type B Not Detected; RSV and SARS-CoV2 Not Detected. ID Consult, 10/10: patient is in the hospital with sepsis in this patient due to fever tachycardi a and leukopenia with low white count bradycardia for both/sepsis as well as febrile neutropenia source is likely abdominal and this will treat him predominantly abdominal symptoms and concern for ileitis/typhlitis, will need to cover for enteric gram-negative both aerobes and anaerobes. CT ABD PELV, 10/09: Thickened wall through the distal ileum and proximal ascending colon and cecum. Correlate for ileitis. Diverticulosis without acute diverticulitis. Treatment: 10/10 Piperacillin Sod/ Tazobactam Sod IVPB Q8H, Fluids: 10/09 Lactated Ringers 1L IV x 1; 10/09 0.9NS IV 75cc/hr Is there an additional diagnosis that is clinically appropriate for this patient? [ x] Sepsis POA [ ] No additional diagnosis/Not clinically significant [ ] Unable to determine [ ] Other, please specify (Template Last Reviewed: May 2022) MTDD
--- NOTE | 2024-10-11 14:05 | P.PN ---
Subjective Progress Note Date: 10/11/24 Patient states she feels slightly better today. She is having flatus. And some liquid small bowel movements. On exam vital signs appear stable. Abdomen soft. Resolving enteritis. Patient will continue to receive supportive care. Objective - Vital Signs Vital signs: Vital Signs Temp 98.5 F 10/11/24 08:00 Pulse 79 10/11/24 08:00 Resp 11 L 10/11/24 08:00 BP 107/70 10/11/24 08:00 Pulse Ox 98 10/11/24 08:00 FiO2 Intake & Output 10/10/24 10/11/24 10/11/24 18:59 06:59 18:59 Output Total 200 Balance -200 Output: Urine 200 Other: Voiding Method Toilet Bedside Commode Bedside Commode Diaper Diaper # Voids 1 - Labs CBC & Chem 7: 10/11/24 06:04 10/11/24 06:04 Labs: Abnormal Lab Results - Last 24 Hours (Table) 10/11/24 10/11/24 Range/Units 06:04 06:04 WBC 1.46 L* (4.50-10.00) 10*3/uL RBC 3.15 L (4.10-5.20) 10*6/uL Hgb 10.2 L (12.0-15.0) g/dL Hct 29.1 L (37.2-46.3) % MCH 32.4 H (27.0-32.0) pg Plt Count 103 L (140-440) 10*3/uL Immature Gran # 0.18 H (0.00-0.04) 10*3/uL Neutrophils # (Manual) 0.58 L (1.3-7.7) k/uL Lymphocytes # (Manual) 0.22 L (1.0-4.8) k/uL Potassium 3.3 L (3.5-5.1) mmol/L Chloride 108 H (98-107) mmol/L BUN 18 H (7-17) mg/dL Calcium 8.3 L (8.4-10.2) mg/dL Total Protein 4.7 L (6.3-8.2) g/dL Albumin 2.5 L (3.5-5.0) g/dL
--- NOTE | 2024-10-11 15:26 | P.PN ---
Subjective Progress Note Date: 10/11/24 Marquita Copeland is a 79-year-old female patient who presented with concerns of weakness following chemotherapy. Patient is currently getting treatment for anal cancer and received her second dose of chemotherapy and felt significantly weak with nausea vomiting. Additional medical history includes osteoarthritis, Jessica-Milan syndrome, bile viral myocarditis, diverticulitis. Abdominal pelvis CT completed showing thickened wall through the distal ileum and proximal ascending colon and cecum correlate for ileitis consider Crohn's disease diverticulosis without acute diverticulitis right ovarian cyst. Lab work completed showing white blood cell 0.70, hemoglobin 11.7, creatinine 0.50 bun 9 stool for occult blood negative UA negative. At this time patient will be admitted patient states she feels much improved. Continue with IV fluid and symptomatic management oncology services are following patient maintained on clear liquid diet stool for C. difficile ordered. Current vital signs temp 100.9, heart rate 91, respiratory rate 18, blood pressure 158/78 with a pulse ox of 97% on room air. Will consult infectious disease services due to leukopenia and fever. Blood culture ordered 10/11/2024 patient was seen and examined on the medical floor she is alert and oriented x 3 in no apparent distress she is complaining of nausea and abdominal discomfort otherwise she denies any complaints there is no fever or chills no headache or dizziness no chest pain no shortness of breath no cough no vomiting no diarrhea today and no urinary symptoms Objective - Vital Signs Vital signs: Vital Signs Temp 98.5 F 10/11/24 08:00 Pulse 79 10/11/24 08:00 Resp 11 L 10/11/24 08:00 BP 107/70 10/11/24 08:00 Pulse Ox 98 10/11/24 08:00 FiO2 Intake & Output 10/10/24 10/11/24 10/11/24 18:59 06:59 18:59 Output Total 200 Balance -200 Output: Urine 200 Other: Voiding Method Toilet Bedside Commode Bedside Commode Diaper Diaper # Voids 1 - Exam Head normocephalic Neck supple Lungs clear to auscultation bilaterally no wheezing or crackles Heart regular rate and rhythm S1-S2, no rub or gallop Abdomen is soft nontender nondistended positive bowel sounds no hepatosplenomegaly Extremities no edema Neuro alert and orientated to 3 - Labs CBC & Chem 7: 10/11/24 06:04 10/11/24 06:04 Labs: Abnormal Lab Results - Last 24 Hours (Table) 10/11/24 10/11/24 Range/Units 06:04 06:04 WBC 1.46 L* (4.50-10.00) 10*3/uL RBC 3.15 L (4.10-5.20) 10*6/uL Hgb 10.2 L (12.0-15.0) g/dL Hct 29.1 L (37.2-46.3) % MCH 32.4 H (27.0-32.0) pg Plt Count 103 L (140-440) 10*3/uL Immature Gran # 0.18 H (0.00-0.04) 10*3/uL Neutrophils # (Manual) 0.58 L (1.3-7.7) k/uL Lymphocytes # (Manual) 0.22 L (1.0-4.8) k/uL Potassium 3.3 L (3.5-5.1) mmol/L Chloride 108 H (98-107) mmol/L BUN 18 H (7-17) mg/dL Calcium 8.3 L (8.4-10.2) mg/dL Total Protein 4.7 L (6.3-8.2) g/dL Albumin 2.5 L (3.5-5.0) g/dL Assessment and Plan Assessment: 1. Generalized weakness 2. Nausea vomiting secondary to ileitis 3. Febrile 4. Currently getting chemo and radiation for anal cancer 5. 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 GI prophylax Protonix Oncology and infectious disease services consulted Repeat labs ordered Continue normal saline at 75 Blood culture ordered
--- NOTE | 2024-10-11 20:02 | P.PN ---
Subjective Progress Note Date: 10/11/24 Principal diagnosis: SE post definitive chemo When seen today pt reports that she cont to feel sharp pain during urination, her mouth is improving, her abd is less distended but it still sore to touch. She is tolerating ice chips, she denies any diarrhea Below is summary of pt diagnosis: Pt sought attention for what she thought was a hemorrhoid. She had noted a small lump, while wiping after a bowel movement. She has not had any pain or discomfort with defecation, tenesmus or bleeding. She had a colonoscopy on 03/21/25, that showed some diverticular changes in the transverse and descending colon, a transverse colon polyp and a small masslike lesion in the external anal canal. Biopsies from the transverse colon polyp showed tubular adenoma. 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 Resection was attempted, but the lesion was found to be invasive and deeper and involving the sphincter muscle so, attempt at resection was aborted. Biopsy showed invasive grade 2 squamous cell carcinoma invading into the sphincter muscle, subcutaneous soft tissue and skeletal muscle. Deep resection margin was involved. Squamous cell carcinoma in situ also involved the peripheral margins. Definitive treatment with concurrent mytomycin/5FU/radiation completed around 09/28 Objective - Vital Signs Vital signs: Vital Signs Temp 98.6 F 10/11/24 01:56 Pulse 84 10/11/24 01:56 Resp 16 10/11/24 01:56 BP 112/65 10/11/24 01:56 Pulse Ox 99 10/11/24 01:56 FiO2 Intake & Output 10/10/24 10/11/24 10/11/24 18:59 06:59 18:59 Output Total 200 Balance -200 Output: Urine 200 Other: Voiding Method Toilet Bedside Commode Diaper # Voids 1 - Constitutional General appearance: Present: average body habitus, cooperative, no acute distress - EENT EENT Comment(s): oral mucosa is red, shallow ulcerations look to be healing Eyes: Present: anicteric sclerae, EOMI ENT: Present: hearing grossly normal - Cardiovascular Rhythm: regular - Gastrointestinal General gastrointestinal: Present: soft, tenderness - Integumentary Integumentary: Present: normal - Neurologic Neurologic: Present: CNII-XII intact - Musculoskeletal Musculoskeletal: Present: strength equal bilaterally - Psychiatric Psychiatric: Present: A&O x's 3, appropriate affect, intact judgment & insight - Labs CBC & Chem 7: 10/11/24 06:04 10/11/24 06:04 Labs: Abnormal Lab Results - Last 24 Hours (Table) 10/11/24 10/11/24 Range/Units 06:04 06:04 WBC 1.46 L* (4.50-10.00) 10*3/uL RBC 3.15 L (4.10-5.20) 10*6/uL Hgb 10.2 L (12.0-15.0) g/dL Hct 29.1 L (37.2-46.3) % MCH 32.4 H (27.0-32.0) pg Plt Count 103 L (140-440) 10*3/uL Immature Gran # 0.18 H (0.00-0.04) 10*3/uL Neutrophils # (Manual) 0.58 L (1.3-7.7) k/uL Lymphocytes # (Manual) 0.22 L (1.0-4.8) k/uL Potassium 3.3 L (3.5-5.1) mmol/L Chloride 108 H (98-107) mmol/L BUN 18 H (7-17) mg/dL Calcium 8.3 L (8.4-10.2) mg/dL Total Protein 4.7 L (6.3-8.2) g/dL Albumin 2.5 L (3.5-5.0) g/dL Assessment and Plan (1) Ileitis Current Visit: Yes Status: Acute Priority: High Code(s): K52.9 - NONINFECTIVE GASTROENTERITIS AND COLITIS, UNSPECIFIED SNOMED Code(s): 10663781 (2) Antineoplastic chemotherapy induced pancytopenia Current Visit: Yes Status: Acute Priority: High Code(s): D61.810 - ANTINEOPLASTIC CHEMOTHERAPY INDUCED PANCYTOPENIA; T45.1X5A - ADVERSE EFFECT OF ANTINEOPLASTIC AND IMMUNOSUP DRUGS, INIT SNOMED Code(s): 822465720350856 (3) Mucositis (ulcerative) due to antineoplastic therapy Current Visit: Yes Status: Acute Priority: High Code(s): K12.31 - ORAL MUCOSITIS (ULCERATIVE) DUE TO ANTINEOPLASTIC THERAPY SNOMED Code(s): 9182266416 Plan: Pt admitted with fever, N, oral irritation, abd distension and discomfort after eating and dysuria. Ileitis -likely 2/2 treatment, low counts and radiation. -RLQ cont to be very sensitive to palpation. Cont bowel rest. Ice chips only for another night. IV fluids Pancytopenia, chemo induced -C-diff, viral panel all negative. She continues on zosyn -Hgb and plt are not normal but continue to be in a safe range at this time. Will cont to monitor as she is at the beginning of wan. Transfuse for Hgb <7 or plt <10,000 or if pt is symptomatic -WBC/ANC are nil. GCSF started. WBC/ANC today are 1.46/580. Cont GCSF tonight, CBC in AM -ID consulted Sq cell carcinoma of the rectum -Pt has completed definitive chemo/XRT, right around 09/28 -Pt did well with treatment overall -Cont f/u as sched with Med Onc chemo induced mucositis -oral supportive medications ordered -Will improve as pt WBC improves Radiation induced perineal irritation -UA not suspicious for infection -Aquaphore ordered.
[2024-10-11] MEDS: CALCIUM ACETATE-ALUMINUM SULF 1 EACH PACKET TOPICAL SCH (21:25)
[2024-10-12 06:26] LABS: HCT 29.6 % (37.2-46.3); HGB 10.0 g/dL (12.0-15.0); MCH 31.6 pg (27.0-32.0); MCHC 33.8 g/dL (32.0-37.0); MCV 93.7 fL (80.0-97.0); Platelet Count 106 10*3/uL (140-440); RBC 3.16 10*6/uL (4.10-5.20); RDW 13.9 % (11.5-14.5); WBC 6.40 10*3/uL (4.50-10.00)
[2024-10-12 06:40] LABS: ALT 12 U/L (4-34); AST 16 U/L (14-36); African American GFR (CKD) >90 (>60 ml/min/1.73 sqM); Albumin 2.5 g/dL (3.5-5.0); Alkaline Phosphatase 51 U/L (38-126); Anion Gap 15 mmol/L; Blood Urea Nitrogen 19 mg/dL (7-17); Calcium 8.4 mg/dL (8.4-10.2); Carbon Dioxide 18 mmol/L (22-30); Chloride 109 mmol/L (98-107); Glucose 63 mg/dL (74-99); Non-African American GFR(CKD) 86 (>60 ml/min/1.73 sqM); Potassium 2.8 mmol/L (3.5-5.1); Sodium 142 mmol/L (137-145); Total Protein 4.6 g/dL (6.3-8.2)
--- NOTE | 2024-10-12 07:26 | P.PN ---
Subjective Progress Note Date: 10/11/24 Principal diagnosis: Reason for follow-up is febrile neutropenia/ileitis Patient is a 79-year-old female with a past medical history significant for osteomyelitis, squamous cell carcinoma of the rectum who has completed her chemotherapy and is undergoing concurrent radiation presenting to the hospital for evaluation of nausea and vomiting along with abdominal bloatin g, patient did have a fever CT abdominal pelvis concerning for ileitis, prompted this consultation. On today's evaluation that is 10/11/2024,the patient did have resolution of her fever and denies any fever or any chills, patient is breathing comfortably on room air, the patient denies chest pain shortness of breath and no significant cough, patient abdominal pain slightly decreased intensity no further vomiting still having some diarrhea. Patient white count improved to 1.46 creatinine 0.62, blood cultures are pending Objective - Vital Signs Vital signs: Vital Signs Temp 98.5 F 10/11/24 08:00 Pulse 79 10/11/24 08:00 Resp 11 L 10/11/24 08:00 BP 107/70 10/11/24 08:00 Pulse Ox 98 10/11/24 08:00 FiO2 Intake & Output 10/10/24 10/11/24 10/11/24 18:59 06:59 18:59 Output Total 200 Balance -200 Output: Urine 200 Other: Voiding Method Toilet Bedside Commode Diaper # Voids 1 - Exam GENERAL DESCRIPTION: An elderly female lying in bed in no distress RESPIRATORY SYSTEM: Unlabored breathing , decreased breath sounds at bases HEART: S1 S2 regular rate and rhythm , ABDOMEN: Soft , no tenderness EXTREMITIES: No edema feet - Labs CBC & Chem 7: 10/12/24 05:47 10/12/24 05:47 Labs: Abnormal Lab Results - Last 24 Hours (Table) 10/11/24 10/11/24 Range/Units 06:04 06:04 WBC 1.46 L* (4.50-10.00) 10*3/uL RBC 3.15 L (4.10-5.20) 10*6/uL Hgb 10.2 L (12.0-15.0) g/dL Hct 29.1 L (37.2-46.3) % MCH 32.4 H (27.0-32.0) pg Plt Count 103 L (140-440) 10*3/uL Immature Gran # 0.18 H (0.00-0.04) 10*3/uL Neutrophils # (Manual) 0.58 L (1.3-7.7) k/uL Lymphocytes # (Manual) 0.22 L (1.0-4.8) k/uL Potassium 3.3 L (3.5-5.1) mmol/L Chloride 108 H (98-107) mmol/L BUN 18 H (7-17) mg/dL Calcium 8.3 L (8.4-10.2) mg/dL Total Protein 4.7 L (6.3-8.2) g/dL Albumin 2.5 L (3.5-5.0) g/dL Assessment and Plan (1) Sepsis Current Visit: Yes Status: Acute Code(s): A41.9 - SEPSIS, UNSPECIFIED ORGANISM SNOMED Code(s): 74212534 (2) Allergy to multiple antibiotics Current Visit: Yes Status: Acute Code(s): Z88.1 - ALLERGY STATUS TO OTHER ANTIBIOTIC AGENTS SNOMED Code(s): 155371291 (3) Ileitis Current Visit: Yes Status: Acute Priority: High Code(s): K52.9 - NONINFECTIVE GASTROENTERITIS AND COLITIS, UNSPECIFIED SNOMED Code(s): 30517457 Plan: 1patient is in the hospital with sepsis in this patient due to fever tachycardia and leukopenia with low white count bradycardia for both/sepsis as well as febrile neutropenia source is likely abdominal and this will treat him predominantly abdominal symptoms and concern for ileitis/typhlitis, will need to cover for enteric gram-negative both aerobes and anaerobes. 2patient with multiple antibiotic ALLERGIES that would limit the number of antibiotic safe to use. 3patient did have resolution of the fever improvement in the white count patient will be treated Zosyn 3.375 g every 8 hours while waiting for the culture to finalize Dictation was produced using [employer] dictation software. please excuse any grammatical, word or spelling errors. Time with Patient: Less than 30
[2024-10-12 08:48] LABS: Eosinophils # (M) 0.32 k/uL (0-0.7); Lymphocytes # (M) 0.58 k/uL (1.0-4.8); Monocytes # (M) 0.90 k/uL (0-1.0); Myelocytes # (M) 0.13 k/uL (0); Neutrophils # (M) 4.48 k/uL (1.3-7.7); Neutrophils % (M) 52 %; Total Cells Counted 100
[2024-10-12 08:49] LABS: Anisocytosis (M) Present; Poikilocytosis (M) Present; Toxic Granulation Present
[2024-10-12] MEDS ORDERED: Potassium Replacement Protocol 1 EACH MISC MISCELLANE PRN (13:01)
--- NOTE | 2024-10-12 13:12 | P.PN ---
Subjective Progress Note Date: 10/12/24 Marquita Copeland is a 79-year-old female patient who presented with concerns of weakness following chemotherapy. Patient is currently getting treatment for anal cancer and received her second dose of chemotherapy and felt significantly weak with nausea vomiting. Additional medical history includes osteoarthritis, Jessica-Milan syndrome, bile viral myocarditis, diverticulitis. Abdominal pelvis CT completed showing thickened wall through the distal ileum and proximal ascending colon and cecum correlate for ileitis consider Crohn's disease diverticulosis without acute diverticulitis right ovarian cyst. Lab work completed showing white blood cell 0.70, hemoglobin 11.7, creatinine 0.50 bun 9 stool for occult blood negative UA negative. At this time patient will be admitted patient states she feels much improved. Continue with IV fluid and symptomatic management oncology services are following patient maintained on clear liquid diet stool for C. difficile ordered. Current vital signs temp 100.9, heart rate 91, respiratory rate 18, blood pressure 158/78 with a pulse ox of 97% on room air. Will consult infectious disease services due to leukopenia and fever. Blood culture ordered 10/11/2024 patient was seen and examined on the medical floor she is alert and oriented x 3 in no apparent distress she is complaining of nausea and abdominal discomfort otherwise she denies any complaints there is no fever or chills no headache or dizziness no chest pain no shortness of breath no cough no vomiting no diarrhea today and no urinary symptoms On 10/12/2024 patient is alert and oriented x 3. Potassium today 2.8 will replace per protocol. Will also order 2D echo due to patient's history of endocarditis. Patient remains on Zosyn. Patient denies chest pain or shortness of breath. Patient denies nausea vomiting or diarrhea. Patient denies any urinary burning or frequency. Current vital signs temp 97.8, heart rate 72, respiratory rate 14, blood pressure 116/71 with pulse ox of 100% on room air Objective - Vital Signs Vital signs: Vital Signs Temp 97.8 F 10/12/24 07:49 Pulse 72 10/12/24 07:49 Resp 14 10/12/24 07:49 BP 116/71 10/12/24 07:49 Pulse Ox 96 10/12/24 08:09 FiO2 Intake & Output 10/11/24 10/12/24 10/12/24 18:59 06:59 18:59 Intake Total 0 Balance 0 Intake: Oral 0 Other: Voiding Method Bedside Commode Diaper Diaper # Voids 4 - Exam Head normocephalic Neck supple Lungs clear to auscultation bilaterally no wheezing or crackles Heart regular rate and rhythm S1-S2, no rub or gallop Abdomen is soft nontender nondistended positive bowel sounds no hepatosplenomegaly Extremities no edema Neuro alert and orientated to 3 - Labs CBC & Chem 7: 10/12/24 05:47 10/12/24 05:47 Labs: Abnormal Lab Results - Last 24 Hours (Table) 10/12/24 10/12/24 Range/Units 05:47 05:47 RBC 3.16 L (4.10-5.20) 10*6/uL Hgb 10.0 L (12.0-15.0) g/dL Hct 29.6 L (37.2-46.3) % Plt Count 106 L (140-440) 10*3/uL Immature Gran # 0.42 H (0.00-0.04) 10*3/uL Lymphocytes # (Manual) 0.58 L (1.0-4.8) k/uL Myelocytes # (Manual) 0.13 H (0) k/uL Potassium 2.8 L (3.5-5.1) mmol/L Chloride 109 H (98-107) mmol/L Carbon Dioxide 18 L (22-30) mmol/L BUN 19 H (7-17) mg/dL Glucose 63 L (74-99) mg/dL Total Protein 4.6 L (6.3-8.2) g/dL Albumin 2.5 L (3.5-5.0) g/dL Microbiology - Last 24 Hours (Table) 10/10/24 14:36 Blood Culture - Preliminary Blood Assessment and Plan Assessment: 1. Generalized weakness 2. Nausea vomiting secondary to ileitis 3. Febrile 4. Currently getting chemo and radiation for anal cancer 5. 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 GI prophylax Protonix Oncology and infectious disease services consulted Repeat labs ordered Continue normal saline at 75 Blood culture ordered
[2024-10-12] MEDS: POTASSIUM CHLORIDE ER 20 MEQ TAB.ER PO SCH ×2 (15:08→21:19)
--- NOTE | 2024-10-12 15:13 | P.PN ---
Subjective Progress Note Date: 10/12/24 The patient states she feels okay. She denies any significant abdominal pain. She has had no nausea vomiting or diarrhea. On exam vital signs appear stable. Abdomen soft. Resolving enteritis. Patient will continue receive supportive care. Objective - Vital Signs Vital signs: Vital Signs Temp 97.8 F 10/12/24 07:49 Pulse 72 10/12/24 07:49 Resp 16 10/12/24 08:00 BP 116/71 10/12/24 07:49 Pulse Ox 96 10/12/24 08:09 FiO2 Intake & Output 10/11/24 10/12/24 10/12/24 18:59 06:59 18:59 Intake Total 0 Balance 0 Intake: Oral 0 Other: Voiding Method Bedside Commode Diaper Diaper Diaper # Voids 4 - Labs CBC & Chem 7: 10/12/24 05:47 10/12/24 05:47 Labs: Abnormal Lab Results - Last 24 Hours (Table) 10/12/24 10/12/24 Range/Units 05:47 05:47 RBC 3.16 L (4.10-5.20) 10*6/uL Hgb 10.0 L (12.0-15.0) g/dL Hct 29.6 L (37.2-46.3) % Plt Count 106 L (140-440) 10*3/uL Immature Gran # 0.42 H (0.00-0.04) 10*3/uL Lymphocytes # (Manual) 0.58 L (1.0-4.8) k/uL Myelocytes # (Manual) 0.13 H (0) k/uL Potassium 2.8 L (3.5-5.1) mmol/L Chloride 109 H (98-107) mmol/L Carbon Dioxide 18 L (22-30) mmol/L BUN 19 H (7-17) mg/dL Glucose 63 L (74-99) mg/dL Total Protein 4.6 L (6.3-8.2) g/dL Albumin 2.5 L (3.5-5.0) g/dL Microbiology - Last 24 Hours (Table) 10/10/24 14:36 Blood Culture - Preliminary Blood
--- NOTE | 2024-10-12 16:44 | P.PN ---
Subjective Progress Note Date: 10/12/24 Principal diagnosis: SE post definitive chemo When seen today pt reports that urinary symptoms are improving with [place] sits baths, her mouth is feeling better, abd is feels sore but not as tender. No fevers, diarrhea or other pain. Objective - Vital Signs Vital signs: Vital Signs Temp 97.8 F 10/12/24 07:49 Pulse 72 10/12/24 07:49 Resp 16 10/12/24 08:00 BP 116/71 10/12/24 07:49 Pulse Ox 96 10/12/24 08:09 FiO2 Intake & Output 10/11/24 10/12/24 10/12/24 18:59 06:59 18:59 Intake Total 0 Balance 0 Intake: Oral 0 Other: Voiding Method Bedside Commode Diaper Diaper Diaper # Voids 4 - Constitutional General appearance: Present: average body habitus, cooperative, no acute distress - EENT EENT Comment(s): mild oral irritation, film on tongue, not thrush Eyes: Present: anicteric sclerae, EOMI ENT: Present: hearing grossly normal - Respiratory Respiratory: bilateral: CTA - Cardiovascular Rhythm: regular Heart sounds: normal: S1, S2 Abnormal Heart Sounds: Absent: systolic murmur, diastolic murmur, rub, S3 Gallop, S4 Gallop, click, other - Peripheral edema leg Peripheral Edema: bilateral: None - Gastrointestinal Gastrointestinal Comment(s): abd is sore but can palpate deeper then previously without significant rebound General gastrointestinal: Present: decreased bowel sounds, soft - Integumentary Integumentary: Present: pale - Neurologic Neurologic: Present: CNII-XII intact - Musculoskeletal Musculoskeletal: Present: strength equal bilaterally - Psychiatric Psychiatric: Present: A&O x's 3, appropriate affect, intact judgment & insight - Labs CBC & Chem 7: 10/12/24 05:47 10/12/24 05:47 Labs: Abnormal Lab Results - Last 24 Hours (Table) 10/12/24 10/12/24 Range/Units 05:47 05:47 RBC 3.16 L (4.10-5.20) 10*6/uL Hgb 10.0 L (12.0-15.0) g/dL Hct 29.6 L (37.2-46.3) % Plt Count 106 L (140-440) 10*3/uL Immature Gran # 0.42 H (0.00-0.04) 10*3/uL Lymphocytes # (Manual) 0.58 L (1.0-4.8) k/uL Myelocytes # (Manual) 0.13 H (0) k/uL Potassium 2.8 L (3.5-5.1) mmol/L Chloride 109 H (98-107) mmol/L Carbon Dioxide 18 L (22-30) mmol/L BUN 19 H (7-17) mg/dL Glucose 63 L (74-99) mg/dL Total Protein 4.6 L (6.3-8.2) g/dL Albumin 2.5 L (3.5-5.0) g/dL Microbiology - Last 24 Hours (Table) 10/10/24 14:36 Blood Culture - Preliminary Blood Assessment and Plan (1) Ileitis Current Visit: Yes Status: Acute Priority: High Code(s): K52.9 - NONINFECTIVE GASTROENTERITIS AND COLITIS, UNSPECIFIED SNOMED Code(s): 88096324 (2) Antineoplastic chemotherapy induced pancytopenia Current Visit: Yes Status: Acute Priority: High Code(s): D61.810 - ANTINEOPLASTIC CHEMOTHERAPY INDUCED PANCYTOPENIA; T45.1X5A - ADVERSE EFFECT OF ANTINEOPLASTIC AND IMMUNOSUP DRUGS, INIT SNOMED Code(s): 735702348062777 (3) Mucositis (ulcerative) due to antineoplastic therapy Current Visit: Yes Status: Acute Priority: High Code(s): K12.31 - ORAL MUCOSITIS (ULCERATIVE) DUE TO ANTINEOPLASTIC THERAPY SNOMED Code(s): 4953531824 Plan: Pt admitted with fever, N, oral irritation, abd distension and discomfort after eating and dysuria. Ileitis -likely 2/2 treatment, low counts and radiation. Treatment is complete. Leukopenia/neutropenia improved with a few doses of GCSF -RLQ pain wiht palpation is improved today. Diet advanced to clear liquids with strict instructions to resume NPO/ice chips if any abd discomfort Pancytopenia, chemo induced -C-diff, viral panel all negative. She continues on zosyn -Hgb and plt are not normal but continue to be in a safe range at this time. Will cont to monitor as she is at the beginning of wan. Transfuse for Hgb <7 or plt <10,000 or if pt is symptomatic -WBC/ANC were nil on admit from chemo. GCSF started. WBC/ANC today are 6.4/4.4. GCSF discontinued. CBC in AM -ID following, Abx continue Sq cell carcinoma of the rectum -Pt has completed definitive chemo/XRT, right around 09/28 -Pt did well with treatment overall -Cont f/u as sched with Med Onc chemo induced mucositis -oral supportive medications ordered, continue -Has improved Radiation induced perineal irritation -UA not suspicious for infection -It was not Aquaphore that was ordered. [place] sitz baths were ordered. Pt doing well with the same. Cont at this time
[2024-10-12 16:54] LABS: Glucose,Whole Blood 91 mg/dL (70-110)
--- NOTE | 2024-10-12 22:23 | P.PN ---
Subjective Progress Note Date: 10/12/24 Principal diagnosis: Reason for follow-up is febrile neutropenia/ileitis Patient is a 79-year-old female with a past medical history significant for osteomyelitis, squamous cell carcinoma of the rectum who has completed her chemotherapy and is undergoing concurrent radiation presenting to the hospital for evaluation of nausea and vomiting along with abdominal bloatin g, patient did have a fever CT abdominal pelvis concerning for ileitis, prompted this consultation. On today's evaluation that is 10/12/2024,the patient remains to be afebrile, patient is on room air not requiring supplemental oxygen and denies any shortness of breath no chest pain or cough.Patient did have some nausea but no vomiting lower abdominal discomfort has improved still having a lot of diarrhea but no blood or mucus in the stool. Patient white count normalized to 6.40, creatinine 0.62 blood culture has been pending Objective - Vital Signs Vital signs: Vital Signs Temp 97.8 F 10/12/24 07:49 Pulse 72 10/12/24 07:49 Resp 16 10/12/24 08:00 BP 116/71 10/12/24 07:49 Pulse Ox 96 10/12/24 08:09 FiO2 Intake & Output 10/11/24 10/12/24 10/12/24 18:59 06:59 18:59 Intake Total 0 Balance 0 Intake: Oral 0 Other: Voiding Method Bedside Commode Diaper Diaper Diaper # Voids 4 - Exam GENERAL DESCRIPTION: An elderly female lying in bed in no distress RESPIRATORY SYSTEM: Unlabored breathing , decreased breath sounds at bases HEART: S1 S2 regular rate and rhythm , ABDOMEN: Soft , no tenderness EXTREMITIES: No edema feet - Labs CBC & Chem 7: 10/12/24 05:47 10/12/24 20:04 Labs: Abnormal Lab Results - Last 24 Hours (Table) 10/12/24 10/12/24 Range/Units 05:47 05:47 RBC 3.16 L (4.10-5.20) 10*6/uL Hgb 10.0 L (12.0-15.0) g/dL Hct 29.6 L (37.2-46.3) % Plt Count 106 L (140-440) 10*3/uL Immature Gran # 0.42 H (0.00-0.04) 10*3/uL Lymphocytes # (Manual) 0.58 L (1.0-4.8) k/uL Myelocytes # (Manual) 0.13 H (0) k/uL Potassium 2.8 L (3.5-5.1) mmol/L Chloride 109 H (98-107) mmol/L Carbon Dioxide 18 L (22-30) mmol/L BUN 19 H (7-17) mg/dL Glucose 63 L (74-99) mg/dL Total Protein 4.6 L (6.3-8.2) g/dL Albumin 2.5 L (3.5-5.0) g/dL Microbiology - Last 24 Hours (Table) 10/10/24 14:36 Blood Culture - Preliminary Blood Assessment and Plan (1) Sepsis Current Visit: Yes Status: Acute Code(s): A41.9 - SEPSIS, UNSPECIFIED ORGANISM SNOMED Code(s): 25598906 (2) Allergy to multiple antibiotics Current Visit: Yes Status: Acute Code(s): Z88.1 - ALLERGY STATUS TO OTHER ANTIBIOTIC AGENTS SNOMED Code(s): 662176795 (3) Ileitis Current Visit: Yes Status: Acute Priority: High Code(s): K52.9 - NONINFECTIVE GASTROENTERITIS AND COLITIS, UNSPECIFIED SNOMED Code(s): 20041884 Plan: 1patient is in the hospital with sepsis in this patient due to fever tachycardia and leukopenia with low white count bradycardia for both/sepsis as well as febrile neutropenia source is likely abdominal and this will treat him predominantly abdominal symptoms and concern for ileitis/typhlitis, will need to cover for enteric gram-negative both aerobes and anaerobes. 2patient with multiple antibiotic ALLERGIES that would limit the number of antibiotic safe to use. 3patient did have resolution of the fever and the patient white count has normalized blood cultures currently pending 4patient will be treated Zosyn 3.375 g every 8 hours while waiting for the culture to finalize Dictation was produced using [employer] dictation software. please excuse any grammatical, word or spelling errors. Time with Patient: Less than 30
--- NOTE | 2024-10-13 08:57 | P.PN ---
Subjective Progress Note Date: 10/13/24 Patient is resting company bed. She states she feels better. On exam vital signs were stable. Abdomen soft. Resolving enteritis. Patient will continue receive supportive care. Objective - Vital Signs Vital signs: Vital Signs Temp 98.1 F 10/13/24 07:28 Pulse 82 10/13/24 07:28 Resp 16 10/13/24 07:28 BP 123/63 10/13/24 07:28 Pulse Ox 91 L 10/13/24 07:28 FiO2 Intake & Output 10/12/24 10/13/24 10/13/24 18:59 06:59 18:59 Intake Total 240 Balance 240 Intake: Oral 240 Other: Voiding Method Diaper Diaper External Catheter # Voids 2 # Bowel Movements 3 - Labs CBC & Chem 7: 10/12/24 05:47 10/13/24 02:53 Labs: Abnormal Lab Results - Last 24 Hours (Table) 10/12/24 Range/Units 20:04 Potassium 3.0 L (3.5-5.1) mmol/L Microbiology - Last 24 Hours (Table) 10/10/24 14:36 Blood Culture - Preliminary Blood
[2024-10-13 09:20] LABS: ALT 13 U/L (8-44); AST 20 U/L (13-35); Albumin 2.7 g/dL (3.8-4.9); Albumin/Globulin Ratio 1.50 Ratio (1.60-3.17); Alkaline Phosphatase 54 U/L (41-126); Anion Gap 10.90 mmol/L (4.00-12.00); BUN/Creat Ratio 19.00 Ratio (12.00-20.00); Blood Urea Nitrogen 9.5 mg/dL (9.0-27.0); Calcium 7.9 mg/dL (8.7-10.3); Carbon Dioxide 20.1 mmol/L (21.6-31.8); Chloride 113 mmol/L (96-109); Globulin 1.8 g/dL (1.6-3.3); Glucose 98 mg/dL (70-110); Potassium 4.0 mmol/L (3.5-5.5); Sodium 144 mmol/L (135-145); Total Protein 4.5 g/dL (6.2-8.2)
[2024-10-13 10:16] LABS: Basophils # (M) 0 X 10*3/uL (0.00-0.10); Eosinophils # (M) 0.50 X 10*3/uL (0.04-0.35); HCT 30.5 % (37.2-46.3); HGB 10.4 g/dL (12.0-15.0); Lymphocytes # (M) 0.37 X 10*3/uL (0.90-5.00); MCH 31.8 pg (27.0-32.0); MCHC 34.1 g/dL (32.0-37.0); MCV 93.3 FL (80.0-97.0); Monocytes # (M) 1.00 X 10*3/uL (0.20-1.00); NRBC Per 100 WBC 0.02 X 10*3/uL (0.00-0.01); Neutrophils # (M) 9.86 X 10*3/uL (1.80-7.70); Neutrophils % (M) 79 %; Platelet Count 136 X 10*3/uL (140-440); RBC 3.27 X 10*6/uL (4.10-5.20); RDW 14.4 % (11.5-14.5); WBC 12.48 X 10*3/uL (4.50-10.00)
--- NOTE | 2024-10-13 10:39 | P.PN ---
Subjective Progress Note Date: 10/13/24 Marquita Copeland is a 79-year-old female patient who presented with concerns of weakness following chemotherapy. Patient is currently getting treatment for anal cancer and received her second dose of chemotherapy and felt significantly weak with nausea vomiting. Additional medical history includes osteoarthritis, Jessica-Milan syndrome, bile viral myocarditis, diverticulitis. Abdominal pelvis CT completed showing thickened wall through the distal ileum and proximal ascending colon and cecum correlate for ileitis consider Crohn's disease diverticulosis without acute diverticulitis right ovarian cyst. Lab work completed showing white blood cell 0.70, hemoglobin 11.7, creatinine 0.50 bun 9 stool for occult blood negative UA negative. At this time patient will be admitted patient states she feels much improved. Continue with IV fluid and symptomatic management oncology services are following patient maintained on clear liquid diet stool for C. difficile ordered. Current vital signs temp 100.9, heart rate 91, respiratory rate 18, blood pressure 158/78 with a pulse ox of 97% on room air. Will consult infectious disease services due to leukopenia and fever. Blood culture ordered 10/11/2024 patient was seen and examined on the medical floor she is alert and oriented x 3 in no apparent distress she is complaining of nausea and abdominal discomfort otherwise she denies any complaints there is no fever or chills no headache or dizziness no chest pain no shortness of breath no cough no vomiting no diarrhea today and no urinary symptoms On 10/12/2024 patient is alert and oriented x 3. Potassium today 2.8 will replace per protocol. Will also order 2D echo due to patient's history of endocarditis. Patient remains on Zosyn. Patient denies chest pain or shortness of breath. Patient denies nausea vomiting or diarrhea. Patient denies any urinary burning or frequency. Current vital signs temp 97.8, heart rate 72, respiratory rate 14, blood pressure 116/71 with pulse ox of 100% on room air On 10/13/2024 patient is alert and oriented x 3. Potassium improving to 3.9. Patient remains on IV Zosyn white blood cell 12.48. Infectious disease are following.. Patient continuing to have loose stool will order stool for C. difficile. Awaiting 2D echo result. Current vital signs temp 98.1, heart rate 82, respiratory rate 16, blood pressure 123/63 with pulse ox of 92% on room air. Patient denies chest pain or shortness of breath. Patient denies nausea vomiting or diarrhea. Patient denies any urinary burning or frequency Objective - Vital Signs Vital signs: Vital Signs Temp 98.1 F 10/13/24 07:28 Pulse 82 10/13/24 07:28 Resp 16 10/13/24 07:28 BP 123/63 10/13/24 07:28 Pulse Ox 91 L 10/13/24 07:28 FiO2 Intake & Output 10/12/24 10/13/24 10/13/24 18:59 06:59 18:59 Intake Total 240 Balance 240 Intake: Oral 240 Other: Voiding Method Diaper Diaper External Catheter # Voids 2 # Bowel Movements 3 - Exam Head normocephalic Neck supple Lungs clear to auscultation bilaterally no wheezing or crackles Heart regular rate and rhythm S1-S2, no rub or gallop Abdomen is soft nontender nondistended positive bowel sounds no hepatosplenomegaly Extremities no edema Neuro alert and orientated to 3 - Labs CBC & Chem 7: 10/13/24 02:53 10/13/24 02:53 Labs: Abnormal Lab Results - Last 24 Hours (Table) 10/12/24 10/13/24 10/13/24 Range/Units 20:04 02:53 02:53 WBC 12.48 H (4.50-10.00) X 10*3/uL RBC 3.27 L (4.10-5.20) X 10*6/uL Hgb 10.4 L (12.0-15.0) g/dL Hct 30.5 L (37.2-46.3) % Plt Count 136 L (140-440) X 10*3/uL Neutrophils # (Manual) 9.86 H (1.80-7.70) X 10*3/uL Lymphocytes # (Manual) 0.37 L (0.90-5.00) X 10*3/uL Eosinophils # (Manual) 0.50 H (0.04-0.35) X 10*3/uL NRBC/100 WBC Diff 0.02 H (0.00-0.01) X 10*3/uL Potassium 3.0 L (3.5-5.1) mmol/L Chloride 113 H (96-109) mmol/L Carbon Dioxide 20.1 L (21.6-31.8) mmol/L Creatinine 0.5 L (0.6-1.5) mg/dL Calcium 7.9 L (8.7-10.3) mg/dL Total Protein 4.5 L (6.2-8.2) g/dL Albumin 2.7 L (3.8-4.9) g/dL Albumin/Globulin Ratio 1.50 L (1.60-3.17) Ratio Microbiology - Last 24 Hours (Table) 10/10/24 14:36 Blood Culture - Preliminary Blood Assessment and Plan Assessment: 1. Generalized weakness 2. Nausea vomiting secondary to ileitis 3. Febrile 4. Currently getting chemo and radiation for anal cancer 5. Leukopenia secondary to chemo treatment 6. History of Willima Milan syndrome 7. History of viral myocarditis 2D echo will be ordered DVT prophylaxis SCDs. GI prophylax Protonix Oncology and infectious disease services consulted Repeat labs ordered Continue normal saline at 75 Blood culture ordered
[2024-10-13 11:14] VITALS: BMI 23.3
--- NOTE | 2024-10-13 11:28 | CA ---
Transthoracic Echo Report Name: Marquita Copeland Age: 79 Gender: F : 1945 Exam Date: 10/12/2024 13:29 Exam Location: [facility] Ht (in): 63 Wt (lb): 132 Ordering Physician: Alexander Carranza MD Attending/Referring Phys: Sewer Digger Snow Michaud RDCS Procedure CPT: Indications: history of endocardititis Cardiac Hx: Technical Quality: Fair Contrast 1: Total Dose (mL): Contrast 2: Total Dose (mL): MEASUREMENTS (Male / Female) Normal Values 2D ECHO LV Diastolic Diameter PLAX 4.3 cm 4.2 - 5.9 / 3.9 - 5.3 cm LV Systolic Diameter PLAX 3.0 cm IVS Diastolic Thickness 1.2 cm 0.6 - 1.0 / 0.6 - 0.9 cm LVPW Diastolic Thickness 1.2 cm 0.6 - 1.0 / 0.6 - 0.9 cm LV Relative Wall Thickness 0.5 RV Internal Dim ED PLAX 2.8 cm LA Systolic Diameter LX 3.9 cm 3.0 - 4.0 / 2.7 - 3.8 cm LV Diastolic Volume MOD 4C 81.3 cm??? LV Systolic Volume MOD 4C 34.4 cm??? LV Ejection Fraction MOD 4C 57.7 % LV Cardiac Index MOD 4C 2090.8 cm???/min???m??? LV Diastolic Length 4C 6.6 cm LV Systolic Length 4C 5.7 cm M-MODE Aortic Root Diameter MM 2.6 cm LA Systolic Diameter MM 3.2 cm LA Ao Ratio MM 1.3 AV Cusp Separation MM 1.3 cm DOPPLER MV Area PHT 4.1 cm??? Mitral E Point Velocity 85.6 cm/s Mitral A Point Velocity 100.5 cm/s Mitral E to A Ratio 0.9 MV Deceleration Time 183.3 ms TR Peak Velocity 242.6 cm/s TR Peak Gradient 23.5 mmHg FINDINGS Left Ventricle Left ventricular ejection fraction is estimated at 55-60 %. Mildly increased septal wall thickness. Mildly increased posterior wall thickness. Left ventricular cavity size normal. Normal left ventricular wall motion. Right Ventricle Normal right ventricular size and function. Right ventricular systolic pressure within normal limits. Right Atrium Normal right atrial size. No right atrial thrombus or mass seen. Left Atrium Normal left atrial size. No left atrial thrombus or mass present. Mitral Valve Structurally normal mitral valve. No mitral stenosis. Trace mitral regurgitation. Aortic Valve Trileaflet aortic valve. no aortic stenosis. Mild aortic regurgitation. Tricuspid Valve Structurally normal tricuspid valve. No tricuspid stenosis. Mild tricuspid regurgitation. Pulmonic Valve Pulmonic valve not well visualized. Trace pulmonic regurgitation. Pericardium Normal pericardium. No pericardial or pleural effusion. Aorta Normal size aortic root and proximal ascending aorta. CONCLUSIONS Reason history of endocarditis Normal LV size and function No intracardiac masses Mild aortic regurgitation, eccentric Previewed by: Dr. Rikki Teague MD (Electronically Signed) Final Date: 13 October 2024 11:27
[2024-10-13] MEDS: LIDOCAINE 4% CREAM 5 GM TUBE TOPICAL SCH (13:22)
--- NOTE | 2024-10-13 16:16 | P.PN ---
Subjective Progress Note Date: 10/13/24 Principal diagnosis: Reason for follow-up is febrile neutropenia/ileitis Patient is a 79-year-old female with a past medical history significant for osteomyelitis, squamous cell carcinoma of the rectum who has completed her chemotherapy and is undergoing concurrent radiation presenting to the hospital for evaluation of nausea and vomiting along with abdominal bloatin g, patient did have a fever CT abdominal pelvis concerning for ileitis, prompted this consultation. On today's evaluation that is 10/13/2024, the patient continues to be afebrile, the patient is on room air and breathing comfortably, the Pt denies having any chest pain or cough, the patient denies having any abdominal pain no vomiting or has been complaining of diarrhea significant excoriation to the perirectal area. Patient white count is 12.48, creatinine 0.5 Objective - Vital Signs Vital signs: Vital Signs Temp 98.3 F 10/13/24 13:43 Pulse 75 10/13/24 13:43 Resp 16 10/13/24 13:43 BP 142/73 10/13/24 13:43 Pulse Ox 98 10/13/24 13:43 FiO2 Intake & Output 10/12/24 10/13/24 10/13/24 18:59 06:59 18:59 Intake Total 240 480 Balance 240 480 Weight 59.874 kg Intake: Oral 240 480 Other: Voiding Method Diaper Diaper External Catheter # Voids 2 # Bowel Movements 3 - Exam GENERAL DESCRIPTION: An elderly female lying in bed in no distress RESPIRATORY SYSTEM: Unlabored breathing , decreased breath sounds at bases HEART: S1 S2 regular rate and rhythm , ABDOMEN: Soft , no tenderness EXTREMITIES: No edema feet - Labs CBC & Chem 7: 10/13/24 02:53 10/13/24 02:53 Labs: Abnormal Lab Results - Last 24 Hours (Table) 10/12/24 10/13/24 10/13/24 Range/Units 20:04 02:53 02:53 WBC 12.48 H (4.50-10.00) X 10*3/uL RBC 3.27 L (4.10-5.20) X 10*6/uL Hgb 10.4 L (12.0-15.0) g/dL Hct 30.5 L (37.2-46.3) % Plt Count 136 L (140-440) X 10*3/uL Neutrophils # (Manual) 9.86 H (1.80-7.70) X 10*3/uL Lymphocytes # (Manual) 0.37 L (0.90-5.00) X 10*3/uL Eosinophils # (Manual) 0.50 H (0.04-0.35) X 10*3/uL NRBC/100 WBC Diff 0.02 H (0.00-0.01) X 10*3/uL Potassium 3.0 L (3.5-5.1) mmol/L Chloride 113 H (96-109) mmol/L Carbon Dioxide 20.1 L (21.6-31.8) mmol/L Creatinine 0.5 L (0.6-1.5) mg/dL Calcium 7.9 L (8.7-10.3) mg/dL Total Protein 4.5 L (6.2-8.2) g/dL Albumin 2.7 L (3.8-4.9) g/dL Albumin/Globulin Ratio 1.50 L (1.60-3.17) Ratio Microbiology - Last 24 Hours (Table) 10/10/24 14:36 Blood Culture - Preliminary Blood Assessment and Plan (1) Sepsis Current Visit: Yes Status: Acute Code(s): A41.9 - SEPSIS, UNSPECIFIED ORGANISM SNOMED Code(s): 03138675 (2) Allergy to multiple antibiotics Current Visit: Yes Status: Acute Code(s): Z88.1 - ALLERGY STATUS TO OTHER ANTIBIOTIC AGENTS SNOMED Code(s): 258611516 (3) Ileitis Current Visit: Yes Status: Acute Priority: High Code(s): K52.9 - NONINFECTIVE GASTROENTERITIS AND COLITIS, UNSPECIFIED SNOMED Code(s): 68349968 Plan: 1patient is in the hospital with sepsis in this patient due to fever tachycardia and leukopenia with low white count bradycardia for both/sepsis as well as febrile neutropenia source is likely abdominal and this will treat him predominantly abdominal symptoms and concern for ileitis/typhlitis, will need to cover for enteric gram-negative both aerobes and anaerobes. 2patient with multiple antibiotic ALLERGIES that would limit the number of antibiotic safe to use. 3patient did have resolution of the fever and the patient white count has normalized blood cultures currently pending 4patient patient to continue with the Zosyn we will apply Triad cream to the perirectal excoriated area and add Questran for symptomatic relief of her diarrhea Dictation was produced using [employer] dictation software. please excuse any grammatical, word or spelling errors. Time with Patient: Less than 30
[2024-10-13] MEDS: CHOLESTYRAMINE RESIN 4 GM PACKET PO SCH (17:41)
[2024-10-13] MEDS: LOPERAMIDE 2 MG CAP PO PRN (18:09)
--- NOTE | 2024-10-13 19:25 | P.PN ---
Subjective Progress Note Date: 10/13/24 Pt reporting perirectal irritation. Sitz baths helping are helping improve symptoms. Diarrhea persisting, abd pain much improved. Objective - Vital Signs Vital signs: Vital Signs Temp 98.1 F 10/13/24 07:28 Pulse 82 10/13/24 07:28 Resp 16 10/13/24 07:28 BP 123/63 10/13/24 07:28 Pulse Ox 91 L 10/13/24 07:28 FiO2 Intake & Output 10/12/24 10/13/24 10/13/24 18:59 06:59 18:59 Intake Total 240 Balance 240 Weight 59.874 kg Intake: Oral 240 Other: Voiding Method Diaper Diaper External Catheter # Voids 2 # Bowel Movements 3 - Constitutional General appearance: Present: average body habitus, no acute distress - EENT Eyes: Present: anicteric sclerae, EOMI ENT: Present: hearing grossly normal - Respiratory Details: breathing is even and unlabored - Cardiovascular Details: skin warm and dry - Gastrointestinal General gastrointestinal: Present: soft, tenderness - Integumentary Integumentary: Absent: cyanotic - Psychiatric Psychiatric: Present: A&O x's 3 - Labs CBC & Chem 7: 10/13/24 02:53 10/13/24 02:53 Labs: Abnormal Lab Results - Last 24 Hours (Table) 10/12/24 10/13/24 10/13/24 Range/Units 20:04 02:53 02:53 WBC 12.48 H (4.50-10.00) X 10*3/uL RBC 3.27 L (4.10-5.20) X 10*6/uL Hgb 10.4 L (12.0-15.0) g/dL Hct 30.5 L (37.2-46.3) % Plt Count 136 L (140-440) X 10*3/uL Neutrophils # (Manual) 9.86 H (1.80-7.70) X 10*3/uL Lymphocytes # (Manual) 0.37 L (0.90-5.00) X 10*3/uL Eosinophils # (Manual) 0.50 H (0.04-0.35) X 10*3/uL NRBC/100 WBC Diff 0.02 H (0.00-0.01) X 10*3/uL Potassium 3.0 L (3.5-5.1) mmol/L Chloride 113 H (96-109) mmol/L Carbon Dioxide 20.1 L (21.6-31.8) mmol/L Creatinine 0.5 L (0.6-1.5) mg/dL Calcium 7.9 L (8.7-10.3) mg/dL Total Protein 4.5 L (6.2-8.2) g/dL Albumin 2.7 L (3.8-4.9) g/dL Albumin/Globulin Ratio 1.50 L (1.60-3.17) Ratio Microbiology - Last 24 Hours (Table) 10/10/24 14:36 Blood Culture - Preliminary Blood Assessment and Plan (1) Rectal cancer Current Visit: Yes Status: Acute Code(s): C20 - MALIGNANT NEOPLASM OF RECTUM SNOMED Code(s): 910124030 (2) Antineoplastic chemotherapy induced pancytopenia Current Visit: Yes Status: Acute Priority: High Code(s): D61.810 - ANTINEOPLASTIC CHEMOTHERAPY INDUCED PANCYTOPENIA; T45.1X5A - ADVERSE EFFECT OF ANTINEOPLASTIC AND IMMUNOSUP DRUGS, INIT SNOMED Code(s): 147459465985693 (3) Generalized weakness Current Visit: Yes Status: Acute Code(s): R53.1 - WEAKNESS SNOMED Code(s): 94583395 (4) Ileitis Current Visit: Yes Status: Acute Priority: High Code(s): K52.9 - NONINFECTIVE GASTROENTERITIS AND COLITIS, UNSPECIFIED SNOMED Code(s): 08155142 (5) Leukopenia Current Visit: Yes Status: Acute Code(s): D72.819 - DECREASED WHITE BLOOD CELL COUNT, UNSPECIFIED SNOMED Code(s): 75987628 (6) Mucositis (ulcerative) due to antineoplastic therapy Current Visit: Yes Status: Acute Priority: High Code(s): K12.31 - ORAL MUCOSITIS (ULCERATIVE) DUE TO ANTINEOPLASTIC THERAPY SNOMED Code(s): 0744508924 Plan: Pt admitted with fever, N, oral irritation, abd distension and discomfort after eating and dysuria. Ileitis -likely 2/2 treatment, low counts and radiation. Treatment is complete. Leukopenia/neutropenia resolved with a few doses of GCSF -Still mildly tender, but tenderness/pain much improved. Due to persisting diarrhea, tenderness, will continue clear liquids today. If symptoms improve, will advance to full liquids in the next 24 hrs Pancytopenia, chemo induced -C-diff, viral panel all negative. She continues on zosyn -Hgb and plt are not normal but continue to be in a safe range at this time. Will cont to monitor as she is at the beginning of wan. Transfuse for Hgb <7 or plt <10,000 or if pt is symptomatic -Chemo induced neutropenia. GCSF started. WBC/ANC now in normal range, G-CSF discontinued. -Continue to monitor CBC -ID following, Abx continue Sq cell carcinoma of the rectum -Pt has completed definitive chemo/XRT, right around 09/28 -Pt did well with treatment overall -Cont f/u as sched with Med Onc chemo induced mucositis -oral supportive medications ordered, continue -Has improved Radiation induced perineal irritation -UA not suspicious for infection -[place] sitz baths were ordered. Pt c/o persisting symptoms. Aquaphor/lidocaine ordered. attests: I have performed H&P and developed impression and plan of care for patient, discussed with dictator. I agree with dictated note, documented as a scribe
[2024-10-13] MEDS: PETROLATUM, WHITE OINT 50 GM TUBE TOPICAL PRN (23:19)
[2024-10-14 09:59] LABS: ALT 11 U/L (8-44); AST 16 U/L (13-35); Albumin 2.7 g/dL (3.8-4.9); Albumin/Globulin Ratio 1.59 Ratio (1.60-3.17); Alkaline Phosphatase 50 U/L (41-126); Anion Gap 9.00 mmol/L (4.00-12.00); BUN/Creat Ratio 9.60 Ratio (12.00-20.00); Blood Urea Nitrogen 4.8 mg/dL (9.0-27.0); Calcium 7.8 mg/dL (8.7-10.3); Carbon Dioxide 23.0 mmol/L (21.6-31.8); Chloride 110 mmol/L (96-109); Globulin 1.7 g/dL (1.6-3.3); Glucose 104 mg/dL (70-110); Potassium 3.1 mmol/L (3.5-5.5); Sodium 142 mmol/L (135-145); Total Protein 4.4 g/dL (6.2-8.2)
[2024-10-14 10:02] LABS: Basophils # (M) 0 X 10*3/uL (0.00-0.10); Eosinophils # (M) 0.18 X 10*3/uL (0.04-0.35); HCT 30.9 % (37.2-46.3); HGB 10.4 g/dL (12.0-15.0); Lymphocytes # (M) 0.18 X 10*3/uL (0.90-5.00); MCH 31.0 pg (27.0-32.0); MCHC 33.7 g/dL (32.0-37.0); MCV 92.2 FL (80.0-97.0); Monocytes # (M) 0.58 X 10*3/uL (0.20-1.00); NRBC Per 100 WBC 0 X 10*3/uL (0.00-0.01); Neutrophils # (M) 4.38 X 10*3/uL (1.80-7.70); Neutrophils % (M) 75 %; Platelet Count 123 X 10*3/uL (140-440); Promyelocytes # (M) 0.12 k/uL (0); RBC 3.35 X 10*6/uL (4.10-5.20); RDW 14.6 % (11.5-14.5); Toxic Granulation 2+ (None Seen); WBC 5.84 X 10*3/uL (4.50-10.00)
--- NOTE | 2024-10-14 10:55 | P.PN ---
Subjective Progress Note Date: 10/14/24 Principal diagnosis: Enteritis Patient feels better today. No diarrhea yet today. White blood cell count 5.8, hemoglobin 10.4, potassium 3.1. Tolerating clears. She would like to try more solid foods. No nausea or vomiting. Denies pain. Objective - Vital Signs Vital signs: Vital Signs Temp 98.3 F 10/14/24 08:00 Pulse 74 10/14/24 08:00 Resp 17 10/14/24 08:00 BP 152/81 10/14/24 08:00 Pulse Ox 97 10/14/24 08:00 FiO2 Intake & Output 10/13/24 10/14/24 10/14/24 18:59 06:59 18:59 Intake Total 1979 1290 Balance 1979 1290 Weight 59.874 kg Intake: Intake, IV Titration 700 Amount Piperacillin-Tazobactam 3 100 .375 gm In Sodium Chloride 0.9% 100 ml @ 25 mls/hr IVPB Q8HR [facility] Rx# :[id number] Sodium Chloride 0.9% 1, 600 000 ml @ 75 mls/hr IV . [id number] [facility] Rx#:[id number] Oral 1979 590 Other: Voiding Method Diaper External Catheter # Voids 6 4 # Bowel Movements 6 - Exam Abdomen: Soft, nontender, nondistended - Labs CBC & Chem 7: 10/14/24 05:53 10/14/24 05:53 Labs: Abnormal Lab Results - Last 24 Hours (Table) 10/14/24 10/14/24 Range/Units 05:53 05:53 RBC 3.35 L (4.10-5.20) X 10*6/uL Hgb 10.4 L (12.0-15.0) g/dL Hct 30.9 L (37.2-46.3) % RDW 14.6 H (11.5-14.5) % Plt Count 123 L (140-440) X 10*3/uL Lymphocytes # (Manual) 0.18 L (0.90-5.00) X 10*3/uL Toxic Granulation 2+ A (None Seen) Potassium 3.1 L (3.5-5.5) mmol/L Chloride 110 H (96-109) mmol/L BUN 4.8 L (9.0-27.0) mg/dL Creatinine 0.5 L (0.6-1.5) mg/dL BUN/Creatinine Ratio 9.60 L (12.00-20.00) Ratio Calcium 7.8 L (8.7-10.3) mg/dL Total Protein 4.4 L (6.2-8.2) g/dL Albumin 2.7 L (3.8-4.9) g/dL Albumin/Globulin Ratio 1.59 L (1.60-3.17) Ratio Microbiology - Last 24 Hours (Table) 10/10/24 14:36 Blood Culture - Preliminary Blood Assessment and Plan (1) Ileitis Narrative/Plan: 79-year-old female with suspected chemo induced enteritis. Symptoms improving. Labs improved. Begin full liquids. Increase activity as tolerated. Continue topical management of radiation skin irritation. Current Visit: Yes Status: Acute Priority: High Code(s): K52.9 - NONINFECTIVE GASTROENTERITIS AND COLITIS, UNSPECIFIED SNOMED Code(s): 76229455
[2024-10-14] MEDS ORDERED: Potassium Replacement Protocol 1 EACH MISC MISCELLANE PRN ×3 (11:45→23:03)
[2024-10-14] MEDS: ENOXAPARIN 40 MG/0.4 ML SYRINGE SQ SCH (14:06)
[2024-10-14] MEDS: POTASSIUM CHLORIDE ER 20 MEQ TAB.ER PO SCH ×2 (14:06→18:42)
--- NOTE | 2024-10-14 15:27 | P.PN ---
Subjective Progress Note Date: 10/14/24 Principal diagnosis: Reason for follow-up is febrile neutropenia/ileitis Patient is a 79-year-old female with a past medical history significant for osteomyelitis, squamous cell carcinoma of the rectum who has completed her chemotherapy and is undergoing concurrent radiation presenting to the hospital for evaluation of nausea and vomiting along with abdominal bloatin g, patient did have a fever CT abdominal pelvis concerning for ileitis, prompted this consultation. On today's evaluation that is 10/15/2023, patient did have a temperature of 97.8 F this afternoon and denies having any chills, patient is on room air and breathing comfortably no chest pain or cough, the patient still complains of lower abdominal discomfort diarrhea has slowed down. The patient white count is 5.84, creatinine 0.5 blood cultures are pending Objective - Vital Signs Vital signs: Vital Signs Temp 97.8 F 10/14/24 13:02 Pulse 80 10/14/24 13:02 Resp 19 10/14/24 13:02 BP 128/76 10/14/24 13:02 Pulse Ox 97 10/14/24 13:02 FiO2 Intake & Output 10/13/24 10/14/24 10/14/24 18:59 06:59 18:59 Intake Total 1979 1290 Balance 1979 1290 Weight 59.874 kg Intake: Intake, IV Titration 700 Amount Piperacillin-Tazobactam 3 100 .375 gm In Sodium Chloride 0.9% 100 ml @ 25 mls/hr IVPB Q8HR [facility] Rx# :[id number] Sodium Chloride 0.9% 1, 600 000 ml @ 75 mls/hr IV . [id number] [facility] Rx#:[id number] Oral 1979 590 Other: Voiding Method Diaper Diaper External Catheter External Catheter # Voids 6 4 # Bowel Movements 6 - Exam GENERAL DESCRIPTION: An elderly female lying in bed in no distress RESPIRATORY SYSTEM: Unlabored breathing , decreased breath sounds at bases HEART: S1 S2 regular rate and rhythm , ABDOMEN: Soft , no tenderness EXTREMITIES: No edema feet - Labs CBC & Chem 7: 10/14/24 05:53 10/14/24 05:53 Labs: Abnormal Lab Results - Last 24 Hours (Table) 10/14/24 10/14/24 Range/Units 05:53 05:53 RBC 3.35 L (4.10-5.20) X 10*6/uL Hgb 10.4 L (12.0-15.0) g/dL Hct 30.9 L (37.2-46.3) % RDW 14.6 H (11.5-14.5) % Plt Count 123 L (140-440) X 10*3/uL Lymphocytes # (Manual) 0.18 L (0.90-5.00) X 10*3/uL Toxic Granulation 2+ A (None Seen) Potassium 3.1 L (3.5-5.5) mmol/L Chloride 110 H (96-109) mmol/L BUN 4.8 L (9.0-27.0) mg/dL Creatinine 0.5 L (0.6-1.5) mg/dL BUN/Creatinine Ratio 9.60 L (12.00-20.00) Ratio Calcium 7.8 L (8.7-10.3) mg/dL Total Protein 4.4 L (6.2-8.2) g/dL Albumin 2.7 L (3.8-4.9) g/dL Albumin/Globulin Ratio 1.59 L (1.60-3.17) Ratio Microbiology - Last 24 Hours (Table) 10/10/24 14:36 Blood Culture - Preliminary Blood Assessment and Plan (1) Sepsis Current Visit: Yes Status: Acute Code(s): A41.9 - SEPSIS, UNSPECIFIED ORGANISM SNOMED Code(s): 35536703 (2) Allergy to multiple antibiotics Current Visit: Yes Status: Acute Code(s): Z88.1 - ALLERGY STATUS TO OTHER ANTIBIOTIC AGENTS SNOMED Code(s): 971666541 (3) Ileitis Current Visit: Yes Status: Acute Priority: High Code(s): K52.9 - NONINFECTIVE GASTROENTERITIS AND COLITIS, UNSPECIFIED SNOMED Code(s): 79727684 Plan: 1patient is in the hospital with sepsis in this patient due to fever tachycardia and leukopenia with low white count bradycardia for both/sepsis as well as febrile neutropenia source is likely abdominal and this will treat him predominantly abdominal symptoms and concern for ileitis/typhlitis, will need to cover for enteric gram-negative both aerobes and anaerobes. 2patient with multiple antibiotic ALLERGIES that would limit the number of antibiotic safe to use. 3patient did have resolution of the fever and the patient white count has normalized blood cultures so far negative 4patient currently being treated the Zosyn and local care with Triad cream to the perirectal excoriated area and add Questran for symptomatic relief of her diarrhea, question answered Dictation was produced using [employer] dictation software. please excuse any grammatical, word or spelling errors. Time with Patient: Less than 30
[2024-10-14] MEDS: HYDROcodone/APAP 5-325MG 1 EACH TAB PO PRN (18:34)
[2024-10-14] MEDS: POTASSIUM BICARBONATE/CIT AC 20 MEQ TABLET.EFF NG-TUBE SCH (23:30)
--- NOTE | 2024-10-15 08:43 | P.PN ---
Subjective Progress Note Date: 10/14/24 Marquita Copeland is a 79-year-old female patient who presented with concerns of weakness following chemotherapy. Patient is currently getting treatment for anal cancer and received her second dose of chemotherapy and felt significantly weak with nausea vomiting. Additional medical history includes osteoarthritis, Jessica-Milan syndrome, bile viral myocarditis, diverticulitis. Abdominal pelvis CT completed showing thickened wall through the distal ileum and proximal ascending colon and cecum correlate for ileitis consider Crohn's disease diverticulosis without acute diverticulitis right ovarian cyst. Lab work completed showing white blood cell 0.70, hemoglobin 11.7, creatinine 0.50 bun 9 stool for occult blood negative UA negative. At this time patient will be admitted patient states she feels much improved. Continue with IV fluid and symptomatic management oncology services are following patient maintained on clear liquid diet stool for C. difficile ordered. Current vital signs temp 100.9, heart rate 91, respiratory rate 18, blood pressure 158/78 with a pulse ox of 97% on room air. Will consult infectious disease services due to leukopenia and fever. Blood culture ordered 10/11/2024 patient was seen and examined on the medical floor she is alert and oriented x 3 in no apparent distress she is complaining of nausea and abdominal discomfort otherwise she denies any complaints there is no fever or chills no headache or dizziness no chest pain no shortness of breath no cough no vomiting no diarrhea today and no urinary symptoms On 10/12/2024 patient is alert and oriented x 3. Potassium today 2.8 will replace per protocol. Will also order 2D echo due to patient's history of endocarditis. Patient remains on Zosyn. Patient denies chest pain or shortness of breath. Patient denies nausea vomiting or diarrhea. Patient denies any urinary burning or frequency. Current vital signs temp 97.8, heart rate 72, respiratory rate 14, blood pressure 116/71 with pulse ox of 100% on room air On 10/13/2024 patient is alert and oriented x 3. Potassium improving to 3.9. Patient remains on IV Zosyn white blood cell 12.48. Infectious disease are following.. Patient continuing to have loose stool will order stool for C. difficile. Awaiting 2D echo result. Current vital signs temp 98.1, heart rate 82, respiratory rate 16, blood pressure 123/63 with pulse ox of 92% on room air. Patient denies chest pain or shortness of breath. Patient denies nausea vomiting or diarrhea. Patient denies any urinary burning or frequency 10/14/2024 patient was seen and examined on the medical floor she is alert and oriented x 3 in no apparent distress she is complaining of nausea and abdominal discomfort otherwise she denies any complaints there is no fever or chills no headache or dizziness no chest pain no shortness of breath no cough no vomiting no diarrhea today and no urinary symptoms Objective - Vital Signs Vital signs: Vital Signs Temp 98.3 F 10/14/24 08:00 Pulse 74 10/14/24 08:00 Resp 17 10/14/24 08:00 BP 152/81 10/14/24 08:00 Pulse Ox 97 10/14/24 08:00 FiO2 Intake & Output 10/13/24 10/14/24 10/14/24 18:59 06:59 18:59 Intake Total 1979 1290 Balance 1979 1290 Weight 59.874 kg Intake: Intake, IV Titration 700 Amount Piperacillin-Tazobactam 3 100 .375 gm In Sodium Chloride 0.9% 100 ml @ 25 mls/hr IVPB Q8HR [facility] Rx# :[id number] Sodium Chloride 0.9% 1, 600 000 ml @ 75 mls/hr IV . [id number] [facility] Rx#:[id number] Oral 1979 590 Other: Voiding Method Diaper External Catheter # Voids 6 4 # Bowel Movements 6 - Exam Head normocephalic Neck supple Lungs clear to auscultation bilaterally no wheezing or crackles Heart regular rate and rhythm S1-S2, no rub or gallop Abdomen is soft nontender nondistended positive bowel sounds no hepatosplenomegaly Extremities no edema Neuro alert and orientated to 3 - Labs CBC & Chem 7: 10/14/24 05:53 10/15/24 03:58 Labs: Abnormal Lab Results - Last 24 Hours (Table) 10/14/24 10/14/24 Range/Units 05:53 05:53 RBC 3.35 L (4.10-5.20) X 10*6/uL Hgb 10.4 L (12.0-15.0) g/dL Hct 30.9 L (37.2-46.3) % RDW 14.6 H (11.5-14.5) % Plt Count 123 L (140-440) X 10*3/uL Lymphocytes # (Manual) 0.18 L (0.90-5.00) X 10*3/uL Toxic Granulation 2+ A (None Seen) Potassium 3.1 L (3.5-5.5) mmol/L Chloride 110 H (96-109) mmol/L BUN 4.8 L (9.0-27.0) mg/dL Creatinine 0.5 L (0.6-1.5) mg/dL BUN/Creatinine Ratio 9.60 L (12.00-20.00) Ratio Calcium 7.8 L (8.7-10.3) mg/dL Total Protein 4.4 L (6.2-8.2) g/dL Albumin 2.7 L (3.8-4.9) g/dL Albumin/Globulin Ratio 1.59 L (1.60-3.17) Ratio Microbiology - Last 24 Hours (Table) 10/10/24 14:36 Blood Culture - Preliminary Blood Assessment and Plan Assessment: 1. Generalized weakness 2. Nausea vomiting secondary to ileitis 3. Febrile 4. Currently getting chemo and radiation for anal cancer 5. 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 GI prophylax Protonix Oncology and infectious disease services consulted Repeat labs ordered Continue normal saline at 75 Blood culture ordered
--- NOTE | 2024-10-15 08:53 | P.PN ---
Subjective Progress Note Date: 10/15/24 Marquita Copeland is a 79-year-old female patient who presented with concerns of weakness following chemotherapy. Patient is currently getting treatment for anal cancer and received her second dose of chemotherapy and felt significantly weak with nausea vomiting. Additional medical history includes osteoarthritis, Jessica-Milan syndrome, bile viral myocarditis, diverticulitis. Abdominal pelvis CT completed showing thickened wall through the distal ileum and proximal ascending colon and cecum correlate for ileitis consider Crohn's disease diverticulosis without acute diverticulitis right ovarian cyst. Lab work completed showing white blood cell 0.70, hemoglobin 11.7, creatinine 0.50 bun 9 stool for occult blood negative UA negative. At this time patient will be admitted patient states she feels much improved. Continue with IV fluid and symptomatic management oncology services are following patient maintained on clear liquid diet stool for C. difficile ordered. Current vital signs temp 100.9, heart rate 91, respiratory rate 18, blood pressure 158/78 with a pulse ox of 97% on room air. Will consult infectious disease services due to leukopenia and fever. Blood culture ordered 10/11/2024 patient was seen and examined on the medical floor she is alert and oriented x 3 in no apparent distress she is complaining of nausea and abdominal discomfort otherwise she denies any complaints there is no fever or chills no headache or dizziness no chest pain no shortness of breath no cough no vomiting no diarrhea today and no urinary symptoms On 10/12/2024 patient is alert and oriented x 3. Potassium today 2.8 will replace per protocol. Will also order 2D echo due to patient's history of endocarditis. Patient remains on Zosyn. Patient denies chest pain or shortness of breath. Patient denies nausea vomiting or diarrhea. Patient denies any urinary burning or frequency. Current vital signs temp 97.8, heart rate 72, respiratory rate 14, blood pressure 116/71 with pulse ox of 100% on room air On 10/13/2024 patient is alert and oriented x 3. Potassium improving to 3.9. Patient remains on IV Zosyn white blood cell 12.48. Infectious disease are following.. Patient continuing to have loose stool will order stool for C. difficile. Awaiting 2D echo result. Current vital signs temp 98.1, heart rate 82, respiratory rate 16, blood pressure 123/63 with pulse ox of 92% on room air. Patient denies chest pain or shortness of breath. Patient denies nausea vomiting or diarrhea. Patient denies any urinary burning or frequency 10/14/2024 patient was seen and examined on the medical floor she is alert and oriented x 3 in no apparent distress she is complaining of nausea and abdominal discomfort otherwise she denies any complaints there is no fever or chills no headache or dizziness no chest pain no shortness of breath no cough no vomiting no diarrhea today and no urinary symptoms On 10/15/2024 patient was seen and examined on the medical floor she is alert oriented x 3 in no apparent distress, still complaining of severe pain related to the radiation skin burn, otherwise she denies any complaints at this time there is no fever or chills no headache or dizziness no chest pain no shortness of breath no cough no nausea or vomiting no abdominal pain no diarrhea no ur inary symptoms. Patient remains on IV Zosyn for abdominal sepsis, infectious disease following. Objective - Vital Signs Vital signs: Vital Signs Temp 97.6 F 10/15/24 08:00 Pulse 70 10/15/24 08:00 Resp 16 10/15/24 08:00 BP 126/59 10/15/24 08:00 Pulse Ox 98 10/15/24 08:00 FiO2 Intake & Output 10/14/24 10/15/24 10/15/24 18:59 06:59 18:59 Intake Total 780 120 Output Total 200 Balance 780 -80 Intake: Oral 780 120 Output: Urine 200 Other: Voiding Method Diaper Diaper External Catheter External Catheter # Voids 3 1 # Bowel Movements 2 1 - Exam Head normocephalic Neck supple Lungs clear to auscultation bilaterally no wheezing or crackles Heart regular rate and rhythm S1-S2, no rub or gallop Abdomen is soft nontender nondistended positive bowel sounds no hepatosplenomegaly Extremities no edema Neuro alert and orientated to 3 - Labs CBC & Chem 7: 10/14/24 05:53 10/15/24 03:58 Labs: Abnormal Lab Results - Last 24 Hours (Table) 10/14/24 10/14/24 10/14/24 Range/Units 05:53 05:53 17:30 RBC 3.35 L (4.10-5.20) X 10*6/uL Hgb 10.4 L (12.0-15.0) g/dL Hct 30.9 L (37.2-46.3) % RDW 14.6 H (11.5-14.5) % Plt Count 123 L (140-440) X 10*3/uL Lymphocytes # (Manual) 0.18 L (0.90-5.00) X 10*3/uL Toxic Granulation 2+ A (None Seen) Potassium 3.1 L 3.0 L (3.5-5.5) mmol/L Chloride 110 H (96-109) mmol/L BUN 4.8 L (9.0-27.0) mg/dL Creatinine 0.5 L (0.6-1.5) mg/dL BUN/Creatinine Ratio 9.60 L (12.00-20.00) Ratio Calcium 7.8 L (8.7-10.3) mg/dL Total Protein 4.4 L (6.2-8.2) g/dL Albumin 2.7 L (3.8-4.9) g/dL Albumin/Globulin Ratio 1.59 L (1.60-3.17) Ratio 10/14/24 Range/Units 22:23 RBC (4.10-5.20) X 10*6/uL Hgb (12.0-15.0) g/dL Hct (37.2-46.3) % RDW (11.5-14.5) % Plt Count (140-440) X 10*3/uL Lymphocytes # (Manual) (0.90-5.00) X 10*3/uL Toxic Granulation (None Seen) Potassium 3.4 L (3.5-5.5) mmol/L Chloride (96-109) mmol/L BUN (9.0-27.0) mg/dL Creatinine (0.6-1.5) mg/dL BUN/Creatinine Ratio (12.00-20.00) Ratio Calcium (8.7-10.3) mg/dL Total Protein (6.2-8.2) g/dL Albumin (3.8-4.9) g/dL Albumin/Globulin Ratio (1.60-3.17) Ratio Assessment and Plan Assessment: 1. Generalized weakness 2. Nausea vomiting secondary to ileitis 3. Febrile 4. Currently getting chemo and radiation for anal cancer 5. 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 GI prophylax Protonix Oncology and infectious disease services consulted Repeat labs ordered Continue normal saline at 75 Blood culture ordered
--- NOTE | 2024-10-15 09:14 | P.PN ---
Subjective Progress Note Date: 10/15/24 Principal diagnosis: Enteritis Patient feels well today. Only had 1-2 stools yesterday. No significant abdominal pain. Yesterday her diet was advanced to full liquids however it looks like she was only getting clear liquids including this morning. Objective - Vital Signs Vital signs: Vital Signs Temp 97.6 F 10/15/24 08:00 Pulse 70 10/15/24 08:00 Resp 16 10/15/24 08:00 BP 126/59 10/15/24 08:00 Pulse Ox 98 10/15/24 08:00 FiO2 Intake & Output 10/14/24 10/15/24 10/15/24 18:59 06:59 18:59 Intake Total 780 120 0 Output Total 200 Balance 780 -80 0 Intake: Oral 780 120 0 Output: Urine 200 Other: Voiding Method Diaper Diaper External Catheter External Catheter # Voids 3 1 # Bowel Movements 2 1 - Exam Abdomen: Soft, nontender, nondistended - Labs CBC & Chem 7: 10/14/24 05:53 10/15/24 03:58 Labs: Abnormal Lab Results - Last 24 Hours (Table) 10/14/24 10/14/24 10/14/24 Range/Units 05:53 05:53 17:30 RBC 3.35 L (4.10-5.20) X 10*6/uL Hgb 10.4 L (12.0-15.0) g/dL Hct 30.9 L (37.2-46.3) % RDW 14.6 H (11.5-14.5) % Plt Count 123 L (140-440) X 10*3/uL Lymphocytes # (Manual) 0.18 L (0.90-5.00) X 10*3/uL Toxic Granulation 2+ A (None Seen) Potassium 3.1 L 3.0 L (3.5-5.5) mmol/L Chloride 110 H (96-109) mmol/L BUN 4.8 L (9.0-27.0) mg/dL Creatinine 0.5 L (0.6-1.5) mg/dL BUN/Creatinine Ratio 9.60 L (12.00-20.00) Ratio Calcium 7.8 L (8.7-10.3) mg/dL Total Protein 4.4 L (6.2-8.2) g/dL Albumin 2.7 L (3.8-4.9) g/dL Albumin/Globulin Ratio 1.59 L (1.60-3.17) Ratio /03/29 Range/Units 22:23 RBC (4.10-5.20) X 10*6/uL Hgb (12.0-15.0) g/dL Hct (37.2-46.3) % RDW (11.5-14.5) % Plt Count (140-440) X 10*3/uL Lymphocytes # (Manual) (0.90-5.00) X 10*3/uL Toxic Granulation (None Seen) Potassium 3.4 L (3.5-5.5) mmol/L Chloride (96-109) mmol/L BUN (9.0-27.0) mg/dL Creatinine (0.6-1.5) mg/dL BUN/Creatinine Ratio (12.00-20.00) Ratio Calcium (8.7-10.3) mg/dL Total Protein (6.2-8.2) g/dL Albumin (3.8-4.9) g/dL Albumin/Globulin Ratio (1.60-3.17) Ratio Assessment and Plan (1) Ileitis Narrative/Plan: Patient doing better gradually. Will discuss with kitchen to provide full liquids today. May advance if tolerates from our standpoint. Continue increasing activity. Current Visit: Yes Status: Acute Priority: High Code(s): K52.9 - NONINFECTIVE GASTROENTERITIS AND COLITIS, UNSPECIFIED SNOMED Code(s): 53171833
[2024-10-15 10:01] LABS: Anion Gap 8.50 mmol/L (4.00-12.00); BUN/Creat Ratio 11.50 Ratio (12.00-20.00); Blood Urea Nitrogen 4.6 mg/dL (9.0-27.0); Carbon Dioxide 22.5 mmol/L (21.6-31.8); Chloride 110 mmol/L (96-109); Glucose 102 mg/dL (70-110); Potassium 4.0 mmol/L (3.5-5.5); Sodium 141 mmol/L (135-145)
[2024-10-15 10:02] LABS: ALT 9 U/L (8-44); AST 15 U/L (13-35); Albumin 2.5 g/dL (3.8-4.9); Albumin/Globulin Ratio 1.56 Ratio (1.60-3.17); Alkaline Phosphatase 41 U/L (41-126); Calcium 7.9 mg/dL (8.7-10.3); Globulin 1.6 g/dL (1.6-3.3); Total Protein 4.1 g/dL (6.2-8.2)
[2024-10-15 11:27] LABS: Basophils # (M) 0.05 X 10*3/uL (0.00-0.10); Eosinophils # (M) 0.20 X 10*3/uL (0.04-0.35); HCT 31.1 % (37.2-46.3); HGB 10.5 g/dL (12.0-15.0); Lymphocytes # (M) 0.41 X 10*3/uL (0.90-5.00); MCH 31.3 pg (27.0-32.0); MCHC 33.8 g/dL (32.0-37.0); MCV 92.6 FL (80.0-97.0); Monocytes # (M) 0.25 X 10*3/uL (0.20-1.00); NRBC Per 100 WBC 0 X 10*3/uL (0.00-0.01); Neutrophils # (M) 4.01 X 10*3/uL (1.80-7.70); Neutrophils % (M) 79 %; Platelet Count 125 X 10*3/uL (140-440); RBC 3.36 X 10*6/uL (4.10-5.20); RDW 14.7 % (11.5-14.5); WBC 5.08 X 10*3/uL (4.50-10.00)
--- NOTE | 2024-10-15 16:04 | P.PN ---
Subjective Progress Note Date: 10/15/24 Principal diagnosis: Reason for follow-up is febrile neutropenia/ileitis Patient is a 79-year-old female with a past medical history significant for osteomyelitis, squamous cell carcinoma of the rectum who has completed her chemotherapy and is undergoing concurrent radiation presenting to the hospital for evaluation of nausea and vomiting along with abdominal bloatin g, patient did have a fever CT abdominal pelvis concerning for ileitis, prompted this consultation. On today's evaluation that is 10/15/2024, Patient is afebrile patient is currently on room air and denies having any shortness of breath, the patient denies any chest pain or cough, the patient denies any nausea vomiting did not have any abdominal pain and diarrhea has slowed down. The pain actively has decreased. Patient white count 5.08, creatinine 0.4 Objective - Vital Signs Vital signs: Vital Signs Temp 98 F 10/15/24 13:21 Pulse 59 L 10/15/24 13:21 Resp 15 10/15/24 13:21 BP 97/62 10/15/24 13:21 Pulse Ox 91 L 10/15/24 13:21 FiO2 Intake & Output 10/14/24 10/15/24 10/15/24 18:59 06:59 18:59 Intake Total 780 120 580 Output Total 200 Balance 780 -80 580 Intake: Oral 780 120 580 Output: Urine 200 Other: Voiding Method Diaper Diaper Toilet External Catheter External Catheter External Catheter # Voids 3 1 # Bowel Movements 2 1 - Exam GENERAL DESCRIPTION: An elderly female lying in bed in no distress RESPIRATORY SYSTEM: Unlabored breathing , decreased breath sounds at bases HEART: S1 S2 regular rate and rhythm , ABDOMEN: Soft , no tenderness EXTREMITIES: No edema feet - Labs CBC & Chem 7: 10/15/24 03:58 10/15/24 03:58 Labs: Abnormal Lab Results - Last 24 Hours (Table) 10/14/24 10/14/24 10/15/24 Range/Units 17:30 22:23 03:58 RBC 3.36 L (4.10-5.20) X 10*6/uL Hgb 10.5 L (12.0-15.0) g/dL Hct 31.1 L (37.2-46.3) % RDW 14.7 H (11.5-14.5) % Plt Count 125 L (140-440) X 10*3/uL Lymphocytes # (Manual) 0.41 L (0.90-5.00) X 10*3/uL Potassium 3.0 L 3.4 L (3.5-5.1) mmol/L Chloride (96-109) mmol/L BUN (9.0-27.0) mg/dL Creatinine (0.6-1.5) mg/dL BUN/Creatinine Ratio (12.00-20.00) Ratio Calcium (8.7-10.3) mg/dL Total Protein (6.2-8.2) g/dL Albumin (3.8-4.9) g/dL Albumin/Globulin Ratio (1.60-3.17) Ratio // Range/Units 03:58 RBC (4.10-5.20) X 10*6/uL Hgb (12.0-15.0) g/dL Hct (37.2-46.3) % RDW (11.5-14.5) % Plt Count (140-440) X 10*3/uL Lymphocytes # (Manual) (0.90-5.00) X 10*3/uL Potassium (3.5-5.1) mmol/L Chloride 110 H (96-109) mmol/L BUN 4.6 L (9.0-27.0) mg/dL Creatinine 0.4 L (0.6-1.5) mg/dL BUN/Creatinine Ratio 11.50 L (12.00-20.00) Ratio Calcium 7.9 L (8.7-10.3) mg/dL Total Protein 4.1 L (6.2-8.2) g/dL Albumin 2.5 L (3.8-4.9) g/dL Albumin/Globulin Ratio 1.56 L (1.60-3.17) Ratio Assessment and Plan (1) Sepsis Current Visit: Yes Status: Acute Code(s): A41.9 - SEPSIS, UNSPECIFIED ORGANISM SNOMED Code(s): 56497393 (2) Allergy to multiple antibiotics Current Visit: Yes Status: Acute Code(s): Z88.1 - ALLERGY STATUS TO OTHER ANTIBIOTIC AGENTS SNOMED Code(s): 003856654 (3) Ileitis Current Visit: Yes Status: Acute Priority: High Code(s): K52.9 - NONINFECTIVE GASTROENTERITIS AND COLITIS, UNSPECIFIED SNOMED Code(s): 96848395 Plan: 1patient is in the hospital with sepsis in this patient due to fever tachycardia and leukopenia with low white count bradycardia for both/sepsis as well as febrile neutropenia source is likely abdominal and this will treat him predominantly abdominal symptoms and concern for ileitis/typhlitis, will need to cover for enteric gram-negative both aerobes and anaerobes. 2patient with multiple antibiotic ALLERGIES that would limit the number of antibiotic safe to use. 3patient did have resolution of the fever and the patient white count has normalized blood cultures so far negative 4patient to continue Zosyn and local care with Triad cream to the perirectal excoriated area and add Questran for symptomatic relief of her diarrhea, will transition to oral antibiotics on discharge Dictation was produced using [employer] dictation software. please excuse any grammatical, word or spelling errors. Time with Patient: Less than 30
[2024-10-16 07:49] LABS: HCT 30.6 % (37.2-46.3); HGB 10.1 g/dL (12.0-15.0); MCH 30.8 pg (27.0-32.0); MCHC 33.0 g/dL (32.0-37.0); MCV 93.3 FL (80.0-97.0); NRBC Per 100 WBC 0 X 10*3/uL (0.00-0.01); Platelet Count 115 X 10*3/uL (140-440); RBC 3.28 X 10*6/uL (4.10-5.20); RDW 14.7 % (11.5-14.5); WBC 4.23 X 10*3/uL (4.50-10.00)
[2024-10-16 07:58] LABS: ALT 9 U/L (8-44); AST 14 U/L (13-35); Albumin 2.6 g/dL (3.8-4.9); Albumin/Globulin Ratio 1.73 Ratio (1.60-3.17); Alkaline Phosphatase 39 U/L (41-126); Anion Gap 7.10 mmol/L (4.00-12.00); BUN/Creat Ratio 9.80 Ratio (12.00-20.00); Blood Urea Nitrogen 4.9 mg/dL (9.0-27.0); Calcium 7.8 mg/dL (8.7-10.3); Carbon Dioxide 24.9 mmol/L (21.6-31.8); Chloride 107 mmol/L (96-109); Globulin 1.5 g/dL (1.6-3.3); Glucose 101 mg/dL (70-110); Potassium 3.2 mmol/L (3.5-5.5); Sodium 139 mmol/L (135-145); Total Protein 4.1 g/dL (6.2-8.2)
[2024-10-16 08:30] LABS: Basophils # (M) 0 X 10*3/uL (0.00-0.10); Eosinophils # (M) 0.08 X 10*3/uL (0.04-0.35); Lymphocytes # (M) 0.17 X 10*3/uL (0.90-5.00); Monocytes # (M) 0.30 X 10*3/uL (0.20-1.00); Neutrophils # (M) 3.30 X 10*3/uL (1.80-7.70); Neutrophils % (M) 78 %; Promyelocytes # (M) 0.04 k/uL (0)
--- NOTE | 2024-10-16 10:58 | P.PN ---
Subjective Progress Note Date: 10/16/24 SURGICAL PROGRESS NOTE CHIEF COMPLAINT: Ileitis HISTORY OF PRESENT ILLNESS: Patient reports pain in the lower abdomen bilaterally. She does report that the pain is better since admission. Her diarrhea has also decreased and becoming more formed. On Questran. Afebrile. WBC 4.23. hgb 10.1 plt 115 k 3.2 PHYSICAL EXAM: VITAL SIGNS: Reviewed. GENERAL: Well-developed in no acute distress. ABDOMEN: Soft. Nondistended. Mild tenderness with palpation bilateral lower abdomen NEUROLOGIC: Alert and oriented. Cranial nerves II through XII grossly intact. ASSESSMENT: 1. Ileitis 2. Hypokalemia PLAN: - Continue full liquids - Antibiotics per ID service - Replace potassium - Increase activity level Physician Program Director [employer] note has been reviewed by physician. Signing provider agrees with the documented findings, assessment, and plan of care. Objective - Vital Signs Vital signs: Vital Signs Temp 98 F 10/16/24 08:00 Pulse 90 10/16/24 08:00 Resp 15 10/16/24 08:00 BP 118/75 10/16/24 08:00 Pulse Ox 99 10/16/24 08:00 FiO2 Intake & Output 10/15/24 10/16/24 10/16/24 18:59 06:59 18:59 Intake Total 1060 Balance 1060 Intake: Oral 1060 Other: Voiding Method Toilet External Catheter # Voids 3 2 - Labs CBC & Chem 7: 10/16/24 04:07 10/16/24 04:07 Labs: Abnormal Lab Results - Last 24 Hours (Table) 10/15/24 10/16/24 10/16/24 Range/Units 03:58 04:07 04:07 WBC 4.23 L (4.50-10.00) X 10*3/uL RBC 3.36 L 3.28 L (4.10-5.20) X 10*6/uL Hgb 10.5 L 10.1 L (12.0-15.0) g/dL Hct 31.1 L 30.6 L (37.2-46.3) % RDW 14.7 H 14.7 H (11.5-14.5) % Plt Count 125 L 115 L (140-440) X 10*3/uL Lymphocytes # (Manual) 0.41 L 0.17 L (0.90-5.00) X 10*3/uL Potassium 3.2 L (3.5-5.5) mmol/L BUN 4.9 L (9.0-27.0) mg/dL Creatinine 0.5 L (0.6-1.5) mg/dL BUN/Creatinine Ratio 9.80 L (12.00-20.00) Ratio Calcium 7.8 L (8.7-10.3) mg/dL Alkaline Phosphatase 39 L (41-126) U/L Total Protein 4.1 L (6.2-8.2) g/dL Albumin 2.6 L (3.8-4.9) g/dL Globulin 1.5 L (1.6-3.3) g/dL Microbiology - Last 24 Hours (Table) 10/10/24 14:36 Blood Culture - Final Blood
[2024-10-16] MEDS: POTASSIUM CHLORIDE ER 20 MEQ TAB.ER PO STA (11:42)
--- NOTE | 2024-10-16 13:18 | P.PN ---
Subjective Progress Note Date: 10/16/24 Principal diagnosis: Reason for follow-up is febrile neutropenia/ileitis Patient is a 79-year-old female with a past medical history significant for osteomyelitis, squamous cell carcinoma of the rectum who has completed her chemotherapy and is undergoing concurrent radiation presenting to the hospital for evaluation of nausea and vomiting along with abdominal bloatin g, patient did have a fever CT abdominal pelvis concerning for ileitis, prompted this consultation. On today's evaluation that is 10/16/2024 patient remains to be afebrile the patient is breathing comfortably on room repeat denies having any chest pain no cough abdominal pain has decreased intensity no nausea vomiting diarrhea has resolved still complaining of some burning pain to the perirectal area. The patient white count is 4.23 and creatinine 0.5 Objective - Vital Signs Vital signs: Vital Signs Temp 98.2 F 10/16/24 12:58 Pulse 78 10/16/24 12:58 Resp 17 10/16/24 12:58 BP 133/75 10/16/24 12:58 Pulse Ox 96 10/16/24 12:58 FiO2 Intake & Output 10/15/24 10/16/24 10/16/24 18:59 06:59 18:59 Intake Total 1060 Balance 1060 Intake: Oral 1060 Other: Voiding Method Toilet External Catheter # Voids 3 2 - Exam GENERAL DESCRIPTION: An elderly female lying in bed in no distress RESPIRATORY SYSTEM: Unlabored breathing , decreased breath sounds at bases HEART: S1 S2 regular rate and rhythm , ABDOMEN: Soft , no tenderness EXTREMITIES: No edema feet - Labs CBC & Chem 7: 10/16/24 04:07 10/16/24 04:07 Labs: Abnormal Lab Results - Last 24 Hours (Table) 10/16/24 10/16/24 Range/Units 04:07 04:07 WBC 4.23 L (4.50-10.00) X 10*3/uL RBC 3.28 L (4.10-5.20) X 10*6/uL Hgb 10.1 L (12.0-15.0) g/dL Hct 30.6 L (37.2-46.3) % RDW 14.7 H (11.5-14.5) % Plt Count 115 L (140-440) X 10*3/uL Lymphocytes # (Manual) 0.17 L (0.90-5.00) X 10*3/uL Potassium 3.2 L (3.5-5.5) mmol/L BUN 4.9 L (9.0-27.0) mg/dL Creatinine 0.5 L (0.6-1.5) mg/dL BUN/Creatinine Ratio 9.80 L (12.00-20.00) Ratio Calcium 7.8 L (8.7-10.3) mg/dL Alkaline Phosphatase 39 L (41-126) U/L Total Protein 4.1 L (6.2-8.2) g/dL Albumin 2.6 L (3.8-4.9) g/dL Globulin 1.5 L (1.6-3.3) g/dL Microbiology - Last 24 Hours (Table) 10/10/24 14:36 Blood Culture - Final Blood Assessment and Plan (1) Sepsis Current Visit: Yes Status: Acute Code(s): A41.9 - SEPSIS, UNSPECIFIED ORGANISM SNOMED Code(s): 87402898 (2) Allergy to multiple antibiotics Current Visit: Yes Status: Acute Code(s): Z88.1 - ALLERGY STATUS TO OTHER ANTIBIOTIC AGENTS SNOMED Code(s): 370268508 (3) Ileitis Current Visit: Yes Status: Acute Priority: High Code(s): K52.9 - NONINFECTIVE GASTROENTERITIS AND COLITIS, UNSPECIFIED SNOMED Code(s): 85120093 Plan: 1patient is in the hospital with sepsis in this patient due to fever tachycardia and leukopenia with low white count bradycardia for both/sepsis as well as febrile neutropenia source is likely abdominal and this will treat him predominantly abdominal symptoms and concern for ileitis/typhlitis, will need to cover for enteric gram-negative both aerobes and anaerobes. 2patient with multiple antibiotic ALLERGIES that would limit the number of antibiotic safe to use. 3patient did have resolution of the fever and the patient white count has normalized blood cultures so far negative 4patient being treated Zosyn and Questran as needed for for symptomatic relief of her diarrhea, hold if no bowel movement for 24 hours Dictation was produced using [employer] dictation software. please excuse any gr ammatical, word or spelling errors. Time with Patient: Less than 30
[2024-10-16] MEDS ORDERED: MAG HYDROX/AL HYDROX/SIMETH 30 ML, LIDOCAINE VISCOUS 2% 30 ML, diphenhydrAMINE ELIXIR 7... PO SCH (16:00)
--- NOTE | 2024-10-16 16:47 | P.PN ---
Subjective Progress Note Date: 10/16/24 Principal diagnosis: SE post definitive chemo When seen today pt reports that urinary symptoms are improving with [place] sits baths, her mouth is feeling better, abd is feels sore but not as tender. No fevers, diarrhea or other pain. Objective - Vital Signs Vital signs: Vital Signs Temp 98.2 F 10/16/24 12:58 Pulse 78 10/16/24 12:58 Resp 17 10/16/24 12:58 BP 133/75 10/16/24 12:58 Pulse Ox 96 10/16/24 12:58 FiO2 Intake & Output 10/15/24 10/16/24 10/16/24 18:59 06:59 18:59 Intake Total 1060 Balance 1060 Intake: Oral 1060 Other: Voiding Method Toilet External Catheter # Voids 3 2 - Constitutional General appearance: Present: average body habitus, cooperative, no acute distress - EENT Eyes: Present: anicteric sclerae, EOMI ENT: Present: hearing grossly normal, normal oropharynx - Respiratory Respiratory: bilateral: CTA - Cardiovascular Rhythm: regular Heart sounds: normal: S1, S2 Abnormal Heart Sounds: Absent: systolic murmur, diastolic murmur, rub, S3 Gallop, S4 Gallop, click, other - Peripheral edema leg Peripheral Edema: bilateral: None - Gastrointestinal General gastrointestinal: Present: distended, normal bowel sounds, soft. Absent: absent bowel sounds, decreased bowel sounds, hepatomegaly, hyperactive bowel sounds, organomegaly, rigid, scaphoid, splenomegaly, tenderness, umbilical hernia, ventral hernia - Integumentary Integumentary: Present: pale - Neurologic Neurologic: Present: CNII-XII intact - Musculoskeletal Musculoskeletal: Present: generalized weakness - Psychiatric Psychiatric: Present: A&O x's 3, appropriate affect, intact judgment & insight - Labs CBC & Chem 7: 10/16/24 04:07 10/16/24 04:07 Labs: Abnormal Lab Results - Last 24 Hours (Table) 10/16/24 10/16/24 Range/Units 04:07 04:07 WBC 4.23 L (4.50-10.00) X 10*3/uL RBC 3.28 L (4.10-5.20) X 10*6/uL Hgb 10.1 L (12.0-15.0) g/dL Hct 30.6 L (37.2-46.3) % RDW 14.7 H (11.5-14.5) % Plt Count 115 L (140-440) X 10*3/uL Lymphocytes # (Manual) 0.17 L (0.90-5.00) X 10*3/uL Potassium 3.2 L (3.5-5.5) mmol/L BUN 4.9 L (9.0-27.0) mg/dL Creatinine 0.5 L (0.6-1.5) mg/dL BUN/Creatinine Ratio 9.80 L (12.00-20.00) Ratio Calcium 7.8 L (8.7-10.3) mg/dL Alkaline Phosphatase 39 L (41-126) U/L Total Protein 4.1 L (6.2-8.2) g/dL Albumin 2.6 L (3.8-4.9) g/dL Globulin 1.5 L (1.6-3.3) g/dL Microbiology - Last 24 Hours (Table) 10/10/24 14:36 Blood Culture - Final Blood Assessment and Plan (1) Ileitis Current Visit: Yes Status: Acute Priority: High Code(s): K52.9 - NONINFECTIVE GASTROENTERITIS AND COLITIS, UNSPECIFIED SNOMED Code(s): 28766222 (2) Antineoplastic chemotherapy induced pancytopenia Current Visit: Yes Status: Acute Priority: High Code(s): D61.810 - ANTINEO PLASTIC CHEMOTHERAPY INDUCED PANCYTOPENIA; T45.1X5A - ADVERSE EFFECT OF ANTINEOPLASTIC AND IMMUNOSUP DRUGS, INIT SNOMED Code(s): 519784158534479 (3) Mucositis (ulcerative) due to antineoplastic therapy Current Visit: Yes Status: Acute Priority: High Code(s): K12.31 - ORAL MUCOSITIS (ULCERATIVE) DUE TO ANTINEOPLASTIC THERAPY SNOMED Code(s): 4082357367 Plan: Pt admitted with fever, N, oral irritation, abd distension and discomfort after eating and dysuria. Neutropenia, treated with GCSF and recovered Ileitis-much improved -likely 2/2 treatment, low counts and radiation. Treatment is complete. Leukopenia/neutropenia improved with a few doses of GCSF -RLQ irritation on exam, no pain. Diet advancing as tolerated now. Pt doing well. Pancytopenia, chemo induced -C-diff, viral panel all negative. She continues on zosyn. ID following. Abx continue -Hgb and plt are not normal but continue to be in a safe range at this time. Will cont to monitor as pt is in wan. Transfuse for Hgb <7 or plt <10,000 or if pt is symptomatic -WBC/ANC were nil on admit from chemo. GCSF started. WBC/ANC today are 4.2/3.3. Sq cell carcinoma of the rectum -Pt has completed definitive chemo/XRT, right around 09/28 -Pt did well with treatment overall -Cont f/u as sched with Med Onc Chemo induced mucositis -oral supportive medications ordered, continue -Has improved significantly Radiation induced perineal irritation -UA not suspicious for infection -[place] sitz baths were ordered. Topicals ordered. Will take time to heal
[2024-10-16] MEDS ORDERED: Potassium Replacement Protocol 1 EACH MISC MISCELLANE PRN ×2 (17:22→22:23)
--- NOTE | 2024-10-16 17:29 | P.PN ---
Subjective Progress Note Date: 10/16/24 Marquita Copeland is a 79-year-old female patient who presented with concerns of weakness following chemotherapy. Patient is currently getting treatment for anal cancer and received her second dose of chemotherapy and felt significantly weak with nausea vomiting. Additional medical history includes osteoarthritis, Jessica-Milan syndrome, bile viral myocarditis, diverticulitis. Abdominal pelvis CT completed showing thickened wall through the distal ileum and proximal ascending colon and cecum correlate for ileitis consider Crohn's disease diverticulosis without acute diverticulitis right ovarian cyst. Lab work completed showing white blood cell 0.70, hemoglobin 11.7, creatinine 0.50 bun 9 stool for occult blood negative UA negative. At this time patient will be admitted patient states she feels much improved. Continue with IV fluid and symptomatic management oncology services are following patient maintained on clear liquid diet stool for C. difficile ordered. Current vital signs temp 100.9, heart rate 91, respiratory rate 18, blood pressure 158/78 with a pulse ox of 97% on room air. Will consult infectious disease services due to leukopenia and fever. Blood culture ordered 10/11/2024 patient was seen and examined on the medical floor she is alert and oriented x 3 in no apparent distress she is complaining of nausea and abdominal discomfort otherwise she denies any complaints there is no fever or chills no headache or dizziness no chest pain no shortness of breath no cough no vomiting no diarrhea today and no urinary symptoms On 10/12/2024 patient is alert and oriented x 3. Potassium today 2.8 will replace per protocol. Will also order 2D echo due to patient's history of endocarditis. Patient remains on Zosyn. Patient denies chest pain or shortness of breath. Patient denies nausea vomiting or diarrhea. Patient denies any urinary burning or frequency. Current vital signs temp 97.8, heart rate 72, respiratory rate 14, blood pressure 116/71 with pulse ox of 100% on room air On 10/13/2024 patient is alert and oriented x 3. Potassium improving to 3.9. Patient remains on IV Zosyn white blood cell 12.48. Infectious disease are following.. Patient continuing to have loose stool will order stool for C. difficile. Awaiting 2D echo result. Current vital signs temp 98.1, heart rate 82, respiratory rate 16, blood pressure 123/63 with pulse ox of 92% on room air. Patient denies chest pain or shortness of breath. Patient denies nausea vomiting or diarrhea. Patient denies any urinary burning or frequency 10/14/2024 patient was seen and examined on the medical floor she is alert and oriented x 3 in no apparent distress she is complaining of nausea and abdominal discomfort otherwise she denies any complaints there is no fever or chills no headache or dizziness no chest pain no shortness of breath no cough no vomiting no diarrhea today and no urinary symptoms On 10/15/2024 patient was seen and examined on the medical floor she is alert oriented x 3 in no apparent distress, still complaining of severe pain related to the radiation skin burn, otherwise she denies any complaints at this time there is no fever or chills no headache or dizziness no chest pain no shortness of breath no cough no nausea or vomiting no abdominal pain no diarrhea no ur inary symptoms. Patient remains on IV Zosyn for abdominal sepsis, infectious disease following. On 10/16/2024 patient was seen and examined on the medical floor she is alert and oriented x 3 in no apparent distress she is still complaining of lower abdominal pain mostly in the skin area she is also complaining of severe weakness and fatigue otherwise she denies any complaints there is no fever or chills no headache or dizziness no chest pain no shortness of breath no cough no nausea or vomiting no abdominal pain she has occasional diarrhea no urinary symptoms Objective - Vital Signs Vital signs: Vital Signs Temp 98.2 F 10/16/24 12:58 Pulse 78 10/16/24 12:58 Resp 17 10/16/24 12:58 BP 133/75 10/16/24 12:58 Pulse Ox 96 10/16/24 12:58 FiO2 Intake & Output 10/15/24 10/16/24 10/16/24 18:59 06:59 18:59 Intake Total 1060 Balance 1060 Weight 59.874 kg Intake: Oral 1060 Other: Voiding Method Toilet External Catheter # Voids 3 2 - Exam Head normocephalic Neck supple Lungs clear to auscultation bilaterally no wheezing or crackles Heart regular rate and rhythm S1-S2, no rub or gallop Abdomen is soft nontender nondistended positive bowel sounds no hepatosplenomegaly Extremities no edema Neuro alert and orientated to 3 - Labs CBC & Chem 7: 10/16/24 04:07 10/16/24 04:07 Labs: Abnormal Lab Results - Last 24 Hours (Table) 10/16/24 10/16/24 Range/Units 04:07 04:07 WBC 4.23 L (4.50-10.00) X 10*3/uL RBC 3.28 L (4.10-5.20) X 10*6/uL Hgb 10.1 L (12.0-15.0) g/dL Hct 30.6 L (37.2-46.3) % RDW 14.7 H (11.5-14.5) % Plt Count 115 L (140-440) X 10*3/uL Lymphocytes # (Manual) 0.17 L (0.90-5.00) X 10*3/uL Promyelocytes # (Man) 0.04 H (0) k/uL Potassium 3.2 L (3.5-5.5) mmol/L BUN 4.9 L (9.0-27.0) mg/dL Creatinine 0.5 L (0.6-1.5) mg/dL BUN/Creatinine Ratio 9.80 L (12.00-20.00) Ratio Calcium 7.8 L (8.7-10.3) mg/dL Alkaline Phosphatase 39 L (41-126) U/L Total Protein 4.1 L (6.2-8.2) g/dL Albumin 2.6 L (3.8-4.9) g/dL Globulin 1.5 L (1.6-3.3) g/dL Microbiology - Last 24 Hours (Table) 10/10/24 14:36 Blood Culture - Final Blood Assessment and Plan Assessment: 1. Generalized weakness 2. Nausea vomiting secondary to ileitis 3. Febrile 4. Currently getting chemo and radiation for anal cancer 5. Leukopenia secondary to chemo treatment 6. History of Wliliam Milan syndrome 7. History of viral myocarditis 2D echo will be ordered DVT prophylaxis SCDs. GI prophylax Protonix Oncology and infectious disease services consulted Repeat labs ordered Continue normal saline at 75 Blood culture ordered
[2024-10-16] MEDS: POTASSIUM CHLORIDE ER 20 MEQ TAB.ER PO SCH (22:28)
[2024-10-17 08:20] LABS: HCT 30.8 % (37.2-46.3); HGB 10.4 g/dL (12.0-15.0); MCH 31.3 pg (27.0-32.0); MCHC 33.8 g/dL (32.0-37.0); MCV 92.8 FL (80.0-97.0); NRBC Per 100 WBC 0 X 10*3/uL (0.00-0.01); Platelet Count 139 X 10*3/uL (140-440); RBC 3.32 X 10*6/uL (4.10-5.20); RDW 14.6 % (11.5-14.5); WBC 4.37 X 10*3/uL (4.50-10.00)
[2024-10-17 08:37] LABS: Anion Gap 9.20 mmol/L (4.00-12.00); BUN/Creat Ratio 9.60 Ratio (12.00-20.00); Blood Urea Nitrogen 4.8 mg/dL (9.0-27.0); Carbon Dioxide 24.8 mmol/L (21.6-31.8); Chloride 107 mmol/L (96-109); Glucose 96 mg/dL (70-110); Potassium 3.6 mmol/L (3.5-5.5); Sodium 141 mmol/L (135-145)
[2024-10-17 08:38] LABS: ALT 10 U/L (8-44); AST 17 U/L (13-35); Albumin 2.6 g/dL (3.8-4.9); Albumin/Globulin Ratio 1.62 Ratio (1.60-3.17); Alkaline Phosphatase 40 U/L (41-126); Calcium 8.0 mg/dL (8.7-10.3); Globulin 1.6 g/dL (1.6-3.3); Total Protein 4.2 g/dL (6.2-8.2)
[2024-10-17] MEDS: POTASSIUM CHLORIDE ER 20 MEQ TAB.ER PO SCH (10:32)
[2024-10-17 10:34] LABS: Basophils # (M) 0 X 10*3/uL (0.00-0.10); Eosinophils # (M) 0.04 X 10*3/uL (0.04-0.35); Lymphocytes # (M) 0.26 X 10*3/uL (0.90-5.00); Monocytes # (M) 0.35 X 10*3/uL (0.20-1.00); Neutrophils # (M) 3.50 X 10*3/uL (1.80-7.70); Neutrophils % (M) 80 %
--- NOTE | 2024-10-17 11:25 | P.PN ---
Subjective Progress Note Date: 10/17/24 SURGICAL PROGRESS NOTE CHIEF COMPLAINT: Ileitis HISTORY OF PRESENT ILLNESS: Patient reports occasional nausea and abdominal discomfort. She describes it as a grumbling sensation across the abdomen. Her main complaint is the irritation from the radiation burn in the buttocks area. She has had no vomiting. She reports been a couple days since her last bowel movement. Afebrile. WBC 4.37 potassium 3.6 PHYSICAL EXAM: VITAL SIGNS: Reviewed. GENERAL: Well-developed in no acute distress. ABDOMEN: Soft. Nondistended. Mild tenderness with palpation bilateral lower abdomen NEUROLOGIC: Alert and oriented. Cranial nerves II through XII grossly intact. ASSESSMENT: 1. Ileitis 2. Hypokalemia resolved PLAN: - Continue full liquids - Antibiotics per ID service - Increase activity level Physician Environmental Engineering Technician note has been reviewed by physician. Signing provider agrees with the documented findings, assessment, and plan of care. Objective - Vital Signs Vital signs: Vital Signs Temp 98.2 F 10/17/24 08:55 Pulse 73 10/17/24 10:36 Resp 14 10/17/24 10:36 BP 133/77 10/17/24 08:55 Pulse Ox 95 10/17/24 01:27 FiO2 Intake & Output 10/16/24 10/17/24 10/17/24 18:59 06:59 18:59 Intake Total 480 540 Balance 480 540 Weight 59.874 kg Intake: Intake, IV Titration 300 Amount Piperacillin-Tazobactam 3 100 .375 gm In Sodium Chloride 0.9% 100 ml @ 25 mls/hr IVPB Q8HR [facility] Rx# :[id number] Sodium Chloride 0.9% 1, 200 000 ml @ 75 mls/hr IV . [id number] [facility] Rx#:[id number] Oral 480 240 Other: Voiding Method Toilet Toilet Diaper Incontinent Incontinent # Voids 3 1 # Bowel Movements 1 - Labs CBC & Chem 7: 10/17/24 04:55 10/17/24 04:55 Labs: Abnormal Lab Results - Last 24 Hours (Table) 10/16/24 10/17/24 10/17/24 Range/Units 04:07 04:55 04:55 WBC 4.37 L (4.50-10.00) X 10*3/uL RBC 3.32 L (4.10-5.20) X 10*6/uL Hgb 10.4 L (12.0-15.0) g/dL Hct 30.8 L (37.2-46.3) % RDW 14.6 H (11.5-14.5) % Plt Count 139 L (140-440) X 10*3/uL Lymphocytes # (Manual) 0.26 L (0.90-5.00) X 10*3/uL Promyelocytes # (Man) 0.04 H (0) k/uL BUN 4.8 L (9.0-27.0) mg/dL Creatinine 0.5 L (0.6-1.5) mg/dL BUN/Creatinine Ratio 9.60 L (12.00-20.00) Ratio Calcium 8.0 L (8.7-10.3) mg/dL Alkaline Phosphatase 40 L (41-126) U/L Total Protein 4.2 L (6.2-8.2) g/dL Albumin 2.6 L (3.8-4.9) g/dL
--- NOTE | 2024-10-17 12:04 | P.PN ---
Subjective Progress Note Date: 10/17/24 Marquita Copeland is a 79-year-old female patient who presented with concerns of weakness following chemotherapy. Patient is currently getting treatment for anal cancer and received her second dose of chemotherapy and felt significantly weak with nausea vomiting. Additional medical history includes osteoarthritis, Jessica-Milan syndrome, bile viral myocarditis, diverticulitis. Abdominal pelvis CT completed showing thickened wall through the distal ileum and proximal ascending colon and cecum correlate for ileitis consider Crohn's disease diverticulosis without acute diverticulitis right ovarian cyst. Lab work completed showing white blood cell 0.70, hemoglobin 11.7, creatinine 0.50 bun 9 stool for occult blood negative UA negative. At this time patient will be admitted patient states she feels much improved. Continue with IV fluid and symptomatic management oncology services are following patient maintained on clear liquid diet stool for C. difficile ordered. Current vital signs temp 100.9, heart rate 91, respiratory rate 18, blood pressure 158/78 with a pulse ox of 97% on room air. Will consult infectious disease services due to leukopenia and fever. Blood culture ordered 10/11/2024 patient was seen and examined on the medical floor she is alert and oriented x 3 in no apparent distress she is complaining of nausea and abdominal discomfort otherwise she denies any complaints there is no fever or chills no headache or dizziness no chest pain no shortness of breath no cough no vomiting no diarrhea today and no urinary symptoms On 10/12/2024 patient is alert and oriented x 3. Potassium today 2.8 will replace per protocol. Will also order 2D echo due to patient's history of endocarditis. Patient remains on Zosyn. Patient denies chest pain or shortness of breath. Patient denies nausea vomiting or diarrhea. Patient denies any urinary burning or frequency. Current vital signs temp 97.8, heart rate 72, respiratory rate 14, blood pressure 116/71 with pulse ox of 100% on room air On 10/13/2024 patient is alert and oriented x 3. Potassium improving to 3.9. Patient remains on IV Zosyn white blood cell 12.48. Infectious disease are following.. Patient continuing to have loose stool will order stool for C. difficile. Awaiting 2D echo result. Current vital signs temp 98.1, heart rate 82, respiratory rate 16, blood pressure 123/63 with pulse ox of 92% on room air. Patient denies chest pain or shortness of breath. Patient denies nausea vomiting or diarrhea. Patient denies any urinary burning or frequency 10/14/2024 patient was seen and examined on the medical floor she is alert and oriented x 3 in no apparent distress she is complaining of nausea and abdominal discomfort otherwise she denies any complaints there is no fever or chills no headache or dizziness no chest pain no shortness of breath no cough no vomiting no diarrhea today and no urinary symptoms On 10/15/2024 patient was seen and examined on the medical floor she is alert oriented x 3 in no apparent distress, still complaining of severe pain related to the radiation skin burn, otherwise she denies any complaints at this time there is no fever or chills no headache or dizziness no chest pain no shortness of breath no cough no nausea or vomiting no abdominal pain no diarrhea no ur inary symptoms. Patient remains on IV Zosyn for abdominal sepsis, infectious disease following. On 10/16/2024 patient was seen and examined on the medical floor she is alert and oriented x 3 in no apparent distress she is still complaining of lower abdominal pain mostly in the skin area she is also complaining of severe weakness and fatigue otherwise she denies any complaints there is no fever or chills no headache or dizziness no chest pain no shortness of breath no cough no nausea or vomiting no abdominal pain she has occasional diarrhea no urinary symptoms On 10/17/2024 patient is alert and oriented x 3. Patient remains on IV Zosyn awaiting further recommendations from ID. Discharge in progress to home with home health care. Patient denies chest pain or shortness of breath. Patient reports improvement with nausea and vomiting. Patient denies any urinary burning or frequency. Current vital signs temp 98.2, heart rate 73, respiratory rate 14, blood pressure 133/77 with pulse ox of 95% on room air Objective - Vital Signs Vital signs: Vital Signs Temp 98.2 F 10/17/24 08:55 Pulse 73 10/17/24 10:36 Resp 14 10/17/24 10:36 BP 133/77 10/17/24 08:55 Pulse Ox 95 10/17/24 01:27 FiO2 Intake & Output 10/16/24 10/17/24 10/17/24 18:59 06:59 18:59 Intake Total 480 540 Balance 480 540 Weight 59.874 kg Intake: Intake, IV Titration 300 Amount Piperacillin-Tazobactam 3 100 .375 gm In Sodium Chloride 0.9% 100 ml @ 25 mls/hr IVPB Q8HR [facility] Rx# :[id number] Sodium Chloride 0.9% 1, 200 000 ml @ 75 mls/hr IV . [id number] [facility] Rx#:[id number] Oral 480 240 Other: Voiding Method Toilet Toilet Diaper Incontinent Incontinent # Voids 3 1 # Bowel Movements 1 - Exam Head normocephalic Neck supple Lungs clear to auscultation bilaterally no wheezing or crackles Heart regular rate and rhythm S1-S2, no rub or gallop Abdomen is soft nontender nondistended positive bowel sounds no hepatosplenomegaly Extremities no edema Neuro alert and orientated to 3 - Labs CBC & Chem 7: 10/17/24 04:55 10/17/24 04:55 Labs: Abnormal Lab Results - Last 24 Hours (Table) 10/16/24 10/17/24 10/17/24 Range/Units 04:07 04:55 04:55 WBC 4.37 L (4.50-10.00) X 10*3/uL RBC 3.32 L (4.10-5.20) X 10*6/uL Hgb 10.4 L (12.0-15.0) g/dL Hct 30.8 L (37.2-46.3) % RDW 14.6 H (11.5-14.5) % Plt Count 139 L (140-440) X 10*3/uL Lymphocytes # (Manual) 0.26 L (0.90-5.00) X 10*3/uL Promyelocytes # (Man) 0.04 H (0) k/uL BUN 4.8 L (9.0-27.0) mg/dL Creatinine 0.5 L (0.6-1.5) mg/dL BUN/Creatinine Ratio 9.60 L (12.00-20.00) Ratio Calcium 8.0 L (8.7-10.3) mg/dL Alkaline Phosphatase 40 L (41-126) U/L Total Protein 4.2 L (6.2-8.2) g/dL Albumin 2.6 L (3.8-4.9) g/dL Assessment and Plan Assessment: 1. Generalized weakness 2. Nausea vomiting secondary to ileitis 3. Febrile 4. Currently getting chemo and radiation for anal cancer 5. 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 GI prophylax Protonix Oncology and infectious disease services consulted Repeat labs ordered Continue normal saline at 75 Blood culture ordered
--- NOTE | 2024-10-17 12:46 | P.PN ---
Subjective Progress Note Date: 10/17/24 Principal diagnosis: SE post definitive chemo When seen today pt still have RUQ and epigastric discomfort. No N,V, she is constipated. Improved perineal radiation irritation. Objective - Vital Signs Vital signs: Vital Signs Temp 98.2 F 10/17/24 08:55 Pulse 73 10/17/24 10:36 Resp 14 10/17/24 10:36 BP 133/77 10/17/24 08:55 Pulse Ox 95 10/17/24 01:27 FiO2 Intake & Output 10/16/24 10/17/24 10/17/24 18:59 06:59 18:59 Intake Total 480 540 Balance 480 540 Weight 59.874 kg Intake: Intake, IV Titration 300 Amount Piperacillin-Tazobactam 3 100 .375 gm In Sodium Chloride 0.9% 100 ml @ 25 mls/hr IVPB Q8HR [facility] Rx# :[id number] Sodium Chloride 0.9% 1, 200 000 ml @ 75 mls/hr IV . [id number] [facility] Rx#:[id number] Oral 480 240 Other: Voiding Method Toilet Toilet Diaper Incontinent Incontinent # Voids 3 1 # Bowel Movements 1 - Constitutional General appearance: Present: average body habitus, cooperative, no acute di stress - EENT Eyes: Present: anicteric sclerae, EOMI ENT: Present: hearing grossly normal, normal oropharynx - Respiratory Respiratory: bilateral: CTA - Cardiovascular Rhythm: regular Heart sounds: normal: S1, S2 Abnormal Heart Sounds: Absent: systolic murmur, diastolic murmur, rub, S3 Gallop, S4 Gallop, click, other - Peripheral edema leg Peripheral Edema: bilateral: None - Gastrointestinal General gastrointestinal: Present: normal bowel sounds, soft, tenderness - Integumentary Integumentary: Present: normal - Neurologic Neurologic: Present: CNII-XII intact - Musculoskeletal Musculoskeletal: Present: strength equal bilaterally - Psychiatric Psychiatric: Present: A&O x's 3, appropriate affect, intact judgment & insight - Labs CBC & Chem 7: 10/17/24 04:55 10/17/24 04:55 Labs: Abnormal Lab Results - Last 24 Hours (Table) 10/16/24 10/17/24 10/17/24 Range/Units 04:07 04:55 04:55 WBC 4.37 L (4.50-10.00) X 10*3/uL RBC 3.32 L (4.10-5.20) X 10*6/uL Hgb 10.4 L (12.0-15.0) g/dL Hct 30.8 L (37.2-46.3) % RDW 14.6 H (11.5-14.5) % Plt Count 139 L (140-440) X 10*3/uL Lymphocytes # (Manual) 0.26 L (0.90-5.00) X 10*3/uL Promyelocytes # (Man) 0.04 H (0) k/uL BUN 4.8 L (9.0-27.0) mg/dL Creatinine 0.5 L (0.6-1.5) mg/dL BUN/Creatinine Ratio 9.60 L (12.00-20.00) Ratio Calcium 8.0 L (8.7-10.3) mg/dL Alkaline Phosphatase 40 L (41-126) U/L Total Protein 4.2 L (6.2-8.2) g/dL Albumin 2.6 L (3.8-4.9) g/dL Assessment and Plan (1) Ileitis Current Visit: Yes Status: Acute Priority: High Code(s): K52.9 - NONINFECTIVE GASTROENTERITIS AND COLITIS, UNSPECIFIED SNOMED Code(s): 89716205 (2) Antineoplastic chemotherapy induced pancytopenia Current Visit: Yes Status: Acute Priority: High Code(s): D61.810 - ANTINEOPLASTIC CHEMOTHERAPY INDUCED PANCYTOPENIA; T45.1X5A - ADVERSE EFFECT OF ANTINEOPLASTIC AND IMMUNOSUP DRUGS, INIT SNOMED Code(s): 102004279576180 (3) Mucositis (ulcerative) due to antineoplastic therapy Current Visit: Yes Status: Acute Priority: High Code(s): K12.31 - ORAL MUCOSITIS (ULCERATIVE) DUE TO ANTINEOPLASTIC THERAPY SNOMED Code(s): 0669034919 Plan: Pt admitted with fever, N, oral irritation, abd distension and discomfort after eating and dysuria. Neutropenia, treated with GCSF and recovered Ileitis-much improved -likely 2/2 treatment, low counts and radiation. Treatment is complete. Leukopenia/neutropenia improved with a few doses of GCSF -RUQ/epigastric irritation on exam, no pain. Diet advancing as tolerated. Pancytopenia, chemo induced -C-diff, viral panel all negative. She continues on zosyn. ID following. Abx continue -Hgb and plt are not normal but continue to be in a safe range at this time. Will cont to monitor as pt is in wan. Transfuse for Hgb <7 or plt <10,000 or if pt is symptomatic -WBC/ANC were nil on admit from chemo. GCSF started. WBC/ANC today are 4.3/3.5. Sq cell carcinoma of the rectum -Pt has completed definitive chemo/XRT, right around 09/28 -Pt did well with treatment overall -Cont f/u as sched with Med Onc Chemo induced mucositis -oral supportive medications ordered, continue -Has improved significantly Radiation induced perineal irritation -UA not suspicious for infection -[place] sitz baths were ordered. Topicals ordered. Will take time to heal
--- NOTE | 2024-10-17 16:03 | P.PN ---
Subjective Progress Note Date: 10/17/24 Principal diagnosis: Reason for follow-up is febrile neutropenia/ileitis Patient is a 79-year-old female with a past medical history significant for osteomyelitis, squamous cell carcinoma of the rectum who has completed her chemotherapy and is undergoing concurrent radiation presenting to the hospital for evaluation of nausea and vomiting along with abdominal bloatin g, patient did have a fever CT abdominal pelvis concerning for ileitis, prompted this consultation. On today's evaluation that is 10/17/2024, Patient is afebrile this morning patient denies having any chest pain shortness of breath or cough, the patient is currently on room air, patient denies any nausea vomiting tolerating her diet still some lower abdominal discomfort but no diarrhea. Patient white count is 4.37, creatinine 0.5 blood culture has been negative Objective - Vital Signs Vital signs: Vital Signs Temp 97.9 F 10/17/24 13:16 Pulse 77 10/17/24 13:16 Resp 16 10/17/24 13:16 BP 130/79 10/17/24 13:16 Pulse Ox 95 10/17/24 01:27 FiO2 Intake & Output 10/16/24 10/17/24 10/17/24 18:59 06:59 18:59 Intake Total 480 540 Balance 480 540 Weight 59.874 kg Intake: Intake, IV Titration 300 Amount Piperacillin-Tazobactam 3 100 .375 gm In Sodium Chloride 0.9% 100 ml @ 25 mls/hr IVPB Q8HR [facility] Rx# :[id number] Sodium Chloride 0.9% 1, 200 000 ml @ 75 mls/hr IV . [id number] [facility] Rx#:[id number] Oral 480 240 Other: Voiding Method Toilet Toilet Diaper Incontinent Incontinent # Voids 3 1 # Bowel Movements 1 - Exam GENERAL DESCRIPTION: An elderly female lying in bed in no distress RESPIRATORY SYSTEM: Unlabored breathing , decreased breath sounds at bases HEART: S1 S2 regular rate and rhythm , ABDOMEN: Soft , no tenderness EXTREMITIES: No edema feet - Labs CBC & Chem 7: 10/17/24 04:55 10/17/24 04:55 Labs: Abnormal Lab Results - Last 24 Hours (Table) 10/17/24 10/17/24 Range/Units 04:55 04:55 WBC 4.37 L (4.50-10.00) X 10*3/uL RBC 3.32 L (4.10-5.20) X 10*6/uL Hgb 10.4 L (12.0-15.0) g/dL Hct 30.8 L (37.2-46.3) % RDW 14.6 H (11.5-14.5) % Plt Count 139 L (140-440) X 10*3/uL Lymphocytes # (Manual) 0.26 L (0.90-5.00) X 10*3/uL BUN 4.8 L (9.0-27.0) mg/dL Creatinine 0.5 L (0.6-1.5) mg/dL BUN/Creatinine Ratio 9.60 L (12.00-20.00) Ratio Calcium 8.0 L (8.7-10.3) mg/dL Alkaline Phosphatase 40 L (41-126) U/L Total Protein 4.2 L (6.2-8.2) g/dL Albumin 2.6 L (3.8-4.9) g/dL Assessment and Plan (1) Sepsis Current Visit: Yes Status: Acute Code(s): A41.9 - SEPSIS, UNSPECIFIED ORGANISM SNOMED Code(s): 90832233 (2) Allergy to multiple antibiotics Current Visit: Yes Status: Acute Code(s): Z88.1 - ALLERGY STATUS TO OTHER ANTIBIOTIC AGENTS SNOMED Code(s): 001660775 (3) Ileitis Current Visit: Yes Status: Acute Priority: High Code(s): K52.9 - NONINFECTIVE GASTROENTERITIS AND COLITIS, UNSPECIFIED SNOMED Code(s): 80782216 Plan: 1patient is in the hospital with sepsis in this patient due to fever tachycardia and leukopenia with low white count bradycardia for both/sepsis as well as febrile neutropenia source is likely abdominal and this will treat him predominantly abdominal symptoms and concern for ileitis/typhlitis, will need to cover for enteric gram-negative both aerobes and anaerobes. 2patient with multiple antibiotic ALLERGIES that would limit the number of antibiotic safe to use. 3patient did have resolution of the fever and the patient white count has normalized blood cultures so far negative 4patient to continue with Zosyn and Questran as needed will consider a short course of oral antibiotic on discharge Dictation was produced using dragon dictation software. please excuse any grammatical, word or spelling errors.
--- NOTE | 2024-10-17 22:06 | P.CONS ---
History of Present Illness - Reason for Consult Consult date: 10/17/24 rehab recommendations - Chief Complaint debility - History of Present Illness Marquita Copeland is a 79-year-old female who lives alone in a ranch style home with 2 steps in and 2 steps down when entering her home. Prior to admission, she was independent with mobility and ADLs, did have a 2ww. She drives. She has neighbors who are helpful. Patient presented with concerns of weakness following chemotherapy. Patient is currently getting treatment for anal cancer and received her second dose of chemotherapy and felt significantly weak with nausea vomiting. Additional medical history includes osteoarthritis, Jessica-Karel syndrome, bile viral myocarditis, diverticulitis. Abdominal pelvis CT completed showing thickened wall through the distal ileum and proximal ascending colon and cecum correlate for ileitis. Lab work completed showing white blood cell 0.70, hemoglobin 11.7, creatinine 0.50 bun 9 stool for occult blood negative UA negative. C. difficile ordered. Oncology consulted and infectious disease services due to leukopenia and fever. Blood culture ordered on 10/12 Potassium today 2.8 will replace per protocol. 2D echo ordered due to patient's history of endocarditis. Patient remains on Zosyn. Patient denies chest pain or shortness of breath. Patient denies nausea vomiting or diarrhea. Patient denies any urinary burning or frequency. Current vital signs temp 97.8, heart rate 72, respiratory rate 14, blood pressure 116/71 with pulse ox of 100% on room air On 10/15/2024 patient still complaining of severe pain related to the radiation skin burn, otherwise she denies any complaints. Patient remains on IV Zosyn for abdominal sepsis, infectious disease following. PM&R consulted for rehab recommendations. Patient was seen by therapies on 10/11: was supervision for mobility and ADLs 10/17: Patient states she is doing 'ok'. She is still having quite a bit of perineal pain related to her radiation. She has been using a topical cream and ice packs. She admits she has not been up out of bed much the past day or two due to the pain. She denies CP, SOB, and abdominal pain. She does feel like she has generalized weakness and low endurance. Review of Systems reviewed, as above in subjective Past Medical History Past Medical History: Cancer, Osteoarthritis (OA) Additional Past Medical History / Comment(s): HX OF WILLIAM KAREL'S SYNDROME, HX OF VIRAL MYOCARDITIS, HX OF DIVERTICULITIS; recent dx squamous cell cancer to anal area. hx of benign polyps. History of Any Multi-Drug Resistant Organisms: None Reported Past Surgical History: Section, Tubal Ligation Additional Past Surgical History / Comment(s): GROESHON CATHETER PLACED AND LATER REMOVED FOR ANTIVIRAL DRUG FOR VIRAL MYOCARDITIS, colonoscopy X2, cataract surgery. Lt elbow [id number] lalit. Bi lat cataract removal with lens implant. surgery to remove anal cancer Past Anesthesia/Blood Transfusion Reactions: No Reported Reaction Additional Past Anesthesia/Blood Transfusion Reaction / Comm: STATES WAS AWAKE DURING COLONOSCOPY- "I wasn't competely out." "They had to give me more medicine to put me out.' Past Psychological History: No Psychological Hx Reported Smoking Status: Never smoker Past Alcohol Use History: None Reported Past Drug Use History: None Reported - Past Family History Brother(s) Additional Family Medical History / Comment(s): PROSTATE CANCER. Mother Family Medical History: Diabetes Mellitus Medications and Allergies Home Medications Medication Instructions Recorded Confirmed Type Multivitamins, Thera [Multivitamin 1 tab PO DAILY 12/12/20 10/09/24 History (formulary)] Magnesium 250 mg PO DAILY 03/07/24 10/09/24 History Cyanocobalamin [Vitamin B-12] 500 mcg PO DAILY 10/09/24 10/09/24 History Diphenoxylate HCl/Atropine 2 tab PO QID PRN 10/09/24 10/09/24 History [Lomotil 2.5-0.025 mg Tablet] HYDROcodone/APAP 5-325MG [Oliver 1 tab PO BID PRN 10/09/24 10/09/24 History 5-325] Ondansetron [Zofran] 4 - 8 mg PO Q4H PRN 10/09/24 10/09/24 History Vitamin D3/Vitamin K2 (Mk4) 1 tab PO DAILY 10/09/24 10/09/24 History [Vitamin K2 Plus D3 Tablet] Allergies Allergy/AdvReac Type Severity Reaction Status Date / Time ciprofloxacin [From Cipro] Allergy WILLIAM Verified 10/09/24 14:32 KAREL SYN. Influenza Virus Vaccines Allergy William Verified 10/09/24 14:32 Karel Syndrome latex Allergy Rash/Hives Verified 10/09/24 14:32 metronidazole [From Flagyl] Allergy WILLIAM Verified 10/09/24 14:32 KAREL SYN sulfamethoxazole Allergy Unknown Verified 10/09/24 14:32 [From Bactrim] trimethoprim [From Bactrim] Allergy Unknown Verified 10/09/24 14:32 Physical Exam Vitals: Vital Signs Temp Pulse Resp BP Pulse Ox 10/17/24 13:16 97.9 F 77 16 130/79 10/17/24 10:36 73 14 10/17/24 08:55 98.2 F 73 14 133/77 10/17/24 01:27 98.6 F 77 16 112/69 95 10/16/24 19:48 98.4 F 83 16 133/78 97 Intake and Output 10/17/24 10/17/24 10/17/24 06:59 14:59 22:59 Intake Total 540 Balance 540 Intake: Intake, IV Titration 300 Amount Piperacillin-Tazobactam 3 100 .375 gm In Sodium Chloride 0.9% 100 ml @ 25 mls/hr IVPB Q8HR [facility] Rx# :[id number] Sodium Chloride 0.9% 1, 200 000 ml @ 75 mls/hr IV . [id number] [facility] Rx#:[id number] Oral 240 Other: Voiding Method Toilet Incontinent # Voids 1 # Bowel Movements 1 General: WDWN elderly female, laying in bed, alert but does appear tired, NAD HEENT: head normocephalic, atraumatic; moist mucous membranes, external ears in tact with hearing intact to conversational speech CV: no acute cardiac distress Lungs: even and unlabored respirations on RA Abdomen: soft, NT, ND MSK: full ROM bilateral UE and LEs except HF limited due to perineal pain MMT: B/L SABD/EF/EE/HG FABD 5/5; B/L HF at least 4/5, KE 5/5, DF 5/5 Neuro: CN 2-12 grossly intact Sensation intact to light touch bilateral UE and LEs Psych: mood calm, affect appropriate, A&O x 4 Extremities: calves supple, non tender, no LE edema Skin: intact where exposed, perineal area not assessed Results CBC & Chem 7: 10/17/24 04:55 10/17/24 04:55 Labs: Abnormal Lab Results - Last 24 Hours (Table) 10/17/24 10/17/24 Range/Units 04:55 04:55 WBC 4.37 L (4.50-10.00) X 10*3/uL RBC 3.32 L (4.10-5.20) X 10*6/uL Hgb 10.4 L (12.0-15.0) g/dL Hct 30.8 L (37.2-46.3) % RDW 14.6 H (11.5-14.5) % Plt Count 139 L (140-440) X 10*3/uL Lymphocytes # (Manual) 0.26 L (0.90-5.00) X 10*3/uL BUN 4.8 L (9.0-27.0) mg/dL Creatinine 0.5 L (0.6-1.5) mg/dL BUN/Creatinine Ratio 9.60 L (12.00-20.00) Ratio Calcium 8.0 L (8.7-10.3) mg/dL Alkaline Phosphatase 40 L (41-126) U/L Total Protein 4.2 L (6.2-8.2) g/dL Albumin 2.6 L (3.8-4.9) g/dL Assessment and Plan Assessment: # 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 Patient reports that she has been in bed the past couple of days due to perineal pain. Recommend a repeat therapy eval to make sure patient did not have a decline in her function. 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 Would recommend a re-evaluation as patient has been in bed the past couple days and is not sure how she will do ambulating. If she has had a decline we can reconsider her for IPR. Patient seen and examined in collaboration with Dr Howard. Thank you for consulting our services.
[2024-10-18 05:41] LABS: ALT 9 U/L (4-34); AST 20 U/L (14-36); African American GFR (CKD) >90 (>60 ml/min/1.73 sqM); Albumin 2.2 g/dL (3.5-5.0); Albumin/Globulin Ratio 1.0; Alkaline Phosphatase 44 U/L (38-126); Anion Gap 6 mmol/L; Blood Urea Nitrogen 5 mg/dL (7-17); Calcium 8.2 mg/dL (8.4-10.2); Carbon Dioxide 26 mmol/L (22-30); Chloride 102 mmol/L (98-107); Globulin 2.1 g/dL; Glucose 81 mg/dL (74-99); Non-African American GFR(CKD) >90 (>60 ml/min/1.73 sqM); Potassium 3.4 mmol/L (3.5-5.1); Sodium 134 mmol/L (137-145); Total Protein 4.3 g/dL (6.3-8.2)
[2024-10-18] MEDS ORDERED: Potassium Replacement Protocol 1 EACH MISC MISCELLANE PRN (06:36)
[2024-10-18 07:49] LABS: HCT 31.0 % (37.2-46.3); HGB 10.4 g/dL (12.0-15.0); MCH 31.8 pg (27.0-32.0); MCHC 33.5 g/dL (32.0-37.0); MCV 94.8 FL (80.0-97.0); NRBC Per 100 WBC 0 X 10*3/uL (0.00-0.01); Platelet Count 172 X 10*3/uL (140-440); RBC 3.27 X 10*6/uL (4.10-5.20); RDW 15.0 % (11.5-14.5); WBC 4.56 X 10*3/uL (4.50-10.00)
[2024-10-18] MEDS: POTASSIUM CHLORIDE ER 20 MEQ TAB.ER PO SCH ×2 (07:59→17:42)
[2024-10-18 10:44] LABS: Basophils # (M) 0 X 10*3/uL (0.00-0.10); Eosinophils # (M) 0.05 X 10*3/uL (0.04-0.35); Lymphocytes # (M) 0.23 X 10*3/uL (0.90-5.00); Monocytes # (M) 0.27 X 10*3/uL (0.20-1.00); Neutrophils # (M) 3.97 X 10*3/uL (1.80-7.70); Neutrophils % (M) 87 %
--- NOTE | 2024-10-18 11:41 | P.PN ---
Subjective Progress Note Date: 10/18/24 SURGICAL PROGRESS NOTE CHIEF COMPLAINT: Ileitis HISTORY OF PRESENT ILLNESS: Patient was able to tolerate eggs this morning. Yesterday afternoon she did eat chicken and tomato soup and had some abdominal bloating. She denies any nausea or vomiting currently. She is having flatus. She does complain of some intermittent abdominal discomfort. Patient reports difficulty with ambulating. Afebrile. WBC 4.56 Hgb 10.4 potassium 3.4 PHYSICAL EXAM: VITAL SIGNS: Reviewed. GENERAL: Well-developed in no acute distress. ABDOMEN: Soft. Mildly distended. Mild diffuse discomfort. NEUROLOGIC: Alert and oriented. Cranial nerves II through XII grossly intact. ASSESSMENT: 1. Ileitis PLAN: -Continue regular diet -Consult physical therapy for generalized weakness and to ambulate -Antibiotics per ID service Physician [employer] Parts Assembler note has been reviewed by physician. Signing provider agrees with the documented findings, assessment, and plan of care. Objective - Vital Signs Vital signs: Vital Signs Temp 97.9 F 10/18/24 07:45 Pulse 70 10/18/24 10:31 Resp 14 10/18/24 07:45 BP 122/65 10/18/24 07:45 Pulse Ox 98 10/18/24 07:45 FiO2 Intake & Output 10/17/24 10/18/24 10/18/24 18:59 06:59 18:59 Intake Total 480 120 Balance 480 120 Intake: Oral 480 120 Other: Voiding Method Toilet Toilet Incontinent Incontinent Incontinent # Voids 1 # Bowel Movements 1 - Labs CBC & Chem 7: 10/18/24 04:19 10/18/24 04:19 Labs: Abnormal Lab Results - Last 24 Hours (Table) 10/18/24 10/18/24 Range/Units 04:19 04:19 RBC 3.27 L (4.10-5.20) X 10*6/uL Hgb 10.4 L (12.0-15.0) g/dL Hct 31.0 L (37.2-46.3) % RDW 15.0 H (11.5-14.5) % Lymphocytes # (Manual) 0.23 L (0.90-5.00) X 10*3/uL Sodium 134 L (137-145) mmol/L Potassium 3.4 L (3.5-5.1) mmol/L BUN 5 L (7-17) mg/dL Creatinine 0.39 L (0.52-1.04) mg/dL Calcium 8.2 L (8.4-10.2) mg/dL Total Protein 4.3 L (6.3-8.2) g/dL Albumin 2.2 L (3.5-5.0) g/dL
[2024-10-19 07:55] VITALS: BP 130/80; PULSE 82; RESP 20; TEMP 97.5
--- NOTE | 2024-10-19 08:16 | P.PN ---
Subjective Progress Note Date: 10/18/24 Principal diagnosis: Reason for follow-up is febrile neutropenia/ileitis Patient is a 79-year-old female with a past medical history significant for osteomyelitis, squamous cell carcinoma of the rectum who has completed her chemotherapy and is undergoing concurrent radiation presenting to the hospital for evaluation of nausea and vomiting along with abdominal bloatin g, patient did have a fever CT abdominal pelvis concerning for ileitis, prompted this consultation. On today's evaluation that is 10/18/2024,the patient denies any fever or any chills, patient is breathing comfortably on room air, the patient denies chest pain shortness of breath and no significant cough, patient mention improvement abdominal pain did have resolution of her diarrhea. The patient white count is 4.56 creatinine 0.39 blood culture had been negative Objective - Vital Signs Vital signs: Vital Signs Temp 97.8 F 10/18/24 19:02 Pulse 78 10/18/24 19:02 Resp 16 10/18/24 19:02 BP 121/76 10/18/24 19:02 Pulse Ox 98 10/18/24 19:02 FiO2 Intake & Output 10/18/24 10/18/24 10/19/24 06:59 18:59 06:59 Intake Total 480 120 Balance 480 120 Weight 59.874 kg Intake: Oral 480 120 Other: Voiding Method Toilet Incontinent Toilet Incontinent Incontinent # Voids 1 1 # Bowel Movements 1 - Exam GENERAL DESCRIPTION: An elderly female lying in bed in no distress RESPIRATORY SYSTEM: Unlabored breathing , decreased breath sounds at bases HEART: S1 S2 regular rate and rhythm , ABDOMEN: Soft , no tenderness EXTREMITIES: No edema feet - Labs CBC & Chem 7: 10/18/24 04:19 10/18/24 11:51 Labs: Abnormal Lab Results - Last 24 Hours (Table) 10/18/24 10/18/24 Range/Units 04:19 04:19 RBC 3.27 L (4.10-5.20) X 10*6/uL Hgb 10.4 L (12.0-15.0) g/dL Hct 31.0 L (37.2-46.3) % RDW 15.0 H (11.5-14.5) % Lymphocytes # (Manual) 0.23 L (0.90-5.00) X 10*3/uL Sodium 134 L (137-145) mmol/L Potassium 3.4 L (3.5-5.1) mmol/L BUN 5 L (7-17) mg/dL Creatinine 0.39 L (0.52-1.04) mg/dL Calcium 8.2 L (8.4-10.2) mg/dL Total Protein 4.3 L (6.3-8.2) g/dL Albumin 2.2 L (3.5-5.0) g/dL Assessment and Plan (1) Sepsis Current Visit: Yes Status: Acute Code(s): A41.9 - SEPSIS, UNSPECIFIED ORGANISM SNOMED Code(s): 16864514 (2) Allergy to multiple antibiotics Current Visit: Yes Status: Acute Code(s): Z88.1 - ALLERGY STATUS TO OTHER ANTIBIOTIC AGENTS SNOMED Code(s): 141772418 (3) Ileitis Current Visit: Yes Status: Acute Priority: High Code(s): K52.9 - NONINFECTIVE GASTROENTERITIS AND COLITIS, UNSPECIFIED SNOMED Code(s): 33239528 Plan: 1patient is in the hospital with sepsis in this patient due to fever tachycardia and leukopenia with low white count bradycardia for both/sepsis as well as febrile neutropenia source is likely abdominal and this will treat him predominantly abdominal symptoms and concern for ileitis/typhlitis, will need to cover for enteric gram-negative both aerobes and anaerobes. 2patient with multiple antibiotic ALLERGIES that would limit the number of antibiotic safe to use. 3patient did have resolution of the fever and the patient white count has normalized blood cultures so far negative 4patient to continue with Zosyn while inpatient there is Flagyl allergy documented in the chart however the patient did not recall we will have the pharmacy further investigated as that will give us more open as far as transi tioning her to oral antibiotic Dictation was produced using [employer] dictation software. please excuse any grammatical, word or spelling errors. Time with Patient: Less than 30
--- NOTE | 2024-10-19 09:14 | P.PN ---
Progress Note - Text Progress Note Date: 10/19/24 PM&R reviewed patient's therapy from 10/18, patient needing Supervision for ambulation 60 ft, Mod-max for LB dressing, min assist for bathing. KATIE with Liaison at [facility], will attempt to get into contact with Bethany VALDEZ and patient to see if she is interested in IPR.
--- NOTE | 2024-10-19 10:19 | P.PN ---
Subjective Progress Note Date: 10/19/24 SURGICAL PROGRESS NOTE CHIEF COMPLAINT: Ileitis HISTORY OF PRESENT ILLNESS: Patient reports having incontinence of loose stools. Patient receiving Questran to help thicken the stools. She was able to am bulate in the hallway yesterday. Her overall pain is intermittent but doing better. Afebrile. PHYSICAL EXAM: VITAL SIGNS: Reviewed. GENERAL: Well-developed in no acute distress. ABDOMEN: Soft. Nondistended. Nontender NEUROLOGIC: Alert and oriented. Cranial nerves II through XII grossly intact. ASSESSMENT: 1. Ileitis PLAN: -Continue regular diet -Continue to work with PT, encourage patient to increase activity level -Antibiotics per ID service -No surgical intervention planned -Continue supportive care Physician [employer] Developer note has been reviewed by physician. Signing provider agrees with the documented findings, assessment, and plan of care. Objective - Vital Signs Vital signs: Vital Signs Temp 97.5 F L 10/19/24 07:55 Pulse 82 10/19/24 07:55 Resp 20 10/19/24 07:55 BP 130/80 10/19/24 07:55 Pulse Ox 93 L 10/19/24 07:55 FiO2 Intake & Output 10/18/24 10/19/24 10/19/24 18:59 06:59 18:59 Intake Total 120 Balance 120 Weight 59.874 kg Intake: Oral 120 Other: Voiding Method Incontinent Toilet Incontinent # Voids 1 # Bowel Movements 1 - Labs CBC & Chem 7: 10/18/24 04:19 10/18/24 11:51 Labs: Abnormal Lab Results - Last 24 Hours (Table) 10/18/24 Range/Units 04:19 Lymphocytes # (Manual) 0.23 L (0.90-5.00) X 10*3/uL
--- NOTE | 2024-10-19 11:51 | P.DS ---
Providers Date of admission: 10/09/24 16:56 Expected date of discharge: 10/19/24 Attending physician: Alexander Carranza Consults: 10/09/24 15:47 Consult Physician Routine Consulting Provider: Marco Webb Consult Reason/Comments: chemo, weakness Do you want consulting provider notified?: Yes 10/10/24 13:43 Consult Physician Routine Consulting Provider: Tammy Ojeda Consult Reason/Comments: febrile, chemo Do you want consulting provider notified?: Yes 10/17/24 12:04 Consult Physician Routine Consulting Provider: Yunior Howard Consult Reason/Comments: IPR consult Do you want consulting provider notified?: Yes Primary care physician: Alexander Carranza [facility] Course: Discharge diagnosis 1. Generalized weakness 2. Nausea vomiting secondary to ileitis 3. Febrile 4. Currently getting chemo and radiation for anal cancer 5. 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 Patient is currently getting treatment for anal cancer and received her second dose of chemotherapy and felt significantly weak with nausea vomiting. Additional medical history includes osteoarthritis, Jessica-Milan syndrome, bile viral myocarditis, diverticulitis. Abdominal pelvis CT completed showing thickened wall through the distal ileum and proximal ascending colon and cecum correlate for ileitis consider Crohn's disease diverticulosis without acute diverticulitis right ovarian cyst. Lab work completed showing white blood cell 0.70, hemoglobin 11.7, creatinine 0.50 bun 9 stool for occult blood negative UA negative. At this time patient will be admitted patient states she feels much improved. Continue with IV fluid and symptomatic management oncology services are following patient maintained on clear liquid diet stool for C. difficile ordered. Current vital signs temp 100.9, heart rate 91, respiratory rate 18, blood pressure 158/78 with a pulse ox of 97% on room air. Will consult infectious disease services due to leukopenia and fever. Blood culture ordered 10/11/2024 patient was seen and examined on the medical floor she is alert and oriented x 3 in no apparent distress she is complaining of nausea and abdominal discomfort otherwise she denies any complaints there is no fever or chills no headache or dizziness no chest pain no shortness of breath no cough no vomiting no diarrhea today and no urinary symptoms On 10/12/2024 patient is alert and oriented x 3. Potassium today 2.8 will replace per protocol. Will also order 2D echo due to patient's history of endocarditis. Patient remains on Zosyn. Patient denies chest pain or shortness of breath. Patient denies nausea vomiting or diarrhea. Patient denies any urinary burning or frequency. Current vital signs temp 97.8, heart rate 72, respiratory rate 14, blood pressure 116/71 with pulse ox of 100% on room air On 10/13/2024 patient is alert and oriented x 3. Potassium improving to 3.9. Patient remains on IV Zosyn white blood cell 12.48. Infectious disease are following.. Patient continuing to have loose stool will order stool for C. difficile. Awaiting 2D echo result. Current vital signs temp 98.1, heart rate 82, respiratory rate 16, blood pressure 123/63 with pulse ox of 92% on room air. Patient denies chest pain or shortness of breath. Patient denies nausea vomiting or diarrhea. Patient denies any urinary burning or frequency 10/14/2024 patient was seen and examined on the medical floor she is alert and oriented x 3 in no apparent distress she is complaining of nausea and abdominal discomfort otherwise she denies any complaints there is no fever or chills no headache or dizziness no chest pain no shortness of breath no cough no vomiting no diarrhea today and no urinary symptoms On 10/15/2024 patient was seen and examined on the medical floor she is alert oriented x 3 in no apparent distress, still complaining of severe pain related to the radiation skin burn, otherwise she denies any complaints at this time there is no fever or chills no headache or dizziness no chest pain no shortness of breath no cough no nausea or vomiting no abdominal pain no diarrhea no urinary symptoms. Patient remains on IV Zosyn for abdominal sepsis, infectious disease following. On 10/16/2024 patient was seen and examined on the medical floor she is alert and oriented x 3 in no apparent distress she is still complaining of lower abdominal pain mostly in the skin area she is also complaining of severe weakness and fatigue otherwise she denies any complaints there is no fever or chills no headache or dizziness no chest pain no shortness of breath no cough no nausea or vomiting no abdominal pain she has occasional diarrhea no urinary symptoms On 10/17/2024 patient is alert and oriented x 3. Patient remains on IV Zosyn awaiting further recommendations from ID. Discharge in progress to home with home health care. Patient denies chest pain or shortness of breath. Patient reports improvement with nausea and vomiting. Patient denies any urinary burning or frequency. Current vital signs temp 98.2, heart rate 73, respiratory rate 14, blood pressure 133/77 with pulse ox of 95% on room air On 10/18/2024 patient is alert and oriented x 3. Patient will be DC'd to [facility] today patient will be DC'd on Augmentin. Patient to follow-up with PCP and consulting providers for further management Patient Condition at Discharge: Stable Plan - Discharge Summary New Discharge Prescriptions: New RX: Enoxaparin [Lovenox] 40 mg SQ DAILY each RX: Mag Hydrox/Al Hydrox/Simeth [Maalox] 30 ml PO TID ml RX: Nystatin 100,000 Unit/ml Susp [Mycostatin Oral Susp] 3,000,000 unit PO TID #0 ml RX: Acetaminophen Tab [Tylenol] 650 mg PO Q6HR PRN tab PRN Reason: Mild Pain Or Fever > 100.5 Amoxic-Pot Clav 500-125 mg [Augmentin 500-125 mg] 1 tab PO Q12HR 10 Days #5 tab RX: Calcium Acetate-Aluminum Sulf [[place] Packet] 1 each TOPICAL TID packet RX: Cholestyramine Resin [[place] Packet] 4 gm PO BID@1000,1800 30 Days #0 packet Continue RX: Diphenoxylate HCl/Atropine [Lomotil 2.5-0.025 mg Tablet] 2 tab PO QID PRN PRN Reason: Diarrhea RX: Vitamin D3/Vitamin K2 (Mk4) [Vitamin K2 Plus D3 Tablet] 1 tab PO DAILY RX: Multivitamins, Thera [Multivitamin (formulary)] 1 tab PO DAILY RX: Magnesium 250 mg PO DAILY RX: Ondansetron [Zofran] 4 - 8 mg PO Q4H PRN PRN Reason: Nausea And Vomiting RX: Cyanocobalamin [Vitamin B-12] 500 mcg PO DAILY No Action HYDROcodone/APAP 5-325MG [[place] 5-325] 1 tab PO BID PRN PRN Reason: Pain Discharge Medication List RX: Multivitamins, Thera [Multivitamin (formulary)] 1 tab PO DAILY 12/12/20 [History] RX: Magnesium 250 mg PO DAILY 03/07/24 [History] HYDROcodone/APAP 5-325MG [[place] 5-325] 1 tab PO BID PRN 10/09/24 [History] RX: Cyanocobalamin [Vitamin B-12] 500 mcg PO DAILY 10/09/24 [History] RX: Diphenoxylate HCl/Atropine [Lomotil 2.5-0.025 mg Tablet] 2 tab PO QID PRN 10/09/24 [History] RX: Ondansetron [Zofran] 4 - 8 mg PO Q4H PRN 10/09/24 [History] RX: Vitamin D3/Vitamin K2 (Mk4) [Vitamin K2 Plus D3 Tablet] 1 tab PO DAILY 10/09/24 [History] Amoxic-Pot Clav 500-125 mg [Augmentin 500-125 mg] 1 tab PO Q12HR 10 Days #5 tab 10/19/24 [Rx] RX: Acetaminophen Tab [Tylenol] 650 mg PO Q6HR PRN tab 10/19/24 [Rx] RX: Calcium Acetate-Aluminum Sulf [[place] Packet] 1 each TOPICAL TID packet 10/19/24 [Rx] RX: Cholestyramine Resin [Questran Packet] 4 gm PO BID@1000,1800 30 Days #0 packet 10/19/24 [Rx] RX: Enoxaparin [Lovenox] 40 mg SQ DAILY each 10/19/24 [Rx] RX: Mag Hydrox/Al Hydrox/Simeth [Maalox] 30 ml PO TID ml 10/19/24 [Rx] RX: Nystatin 100,000 Unit/ml Susp [Mycostatin Oral Susp] 3,000,000 unit PO TID #0 ml 10/19/24 [Rx] Follow up Appointment(s)/Referral(s): [facility], [NON-STAFF] - 1 Week Alexander Carranza [facility] [Primary Care Provider[facility] - (Contact regarding medical equipment, for example shower chair.)
--- NOTE | 2024-10-19 11:52 | P.PN ---
Subjective Progress Note Date: 10/18/24 Marquita Copeland is a 79-year-old female patient who presented with concerns of weakness following chemotherapy. Patient is currently getting treatment for anal cancer and received her second dose of chemotherapy and felt significantly weak with nausea vomiting. Additional medical history includes osteoarthritis, Jessica-Milan syndrome, bile viral myocarditis, diverticulitis. Abdominal pelvis CT completed showing thickened wall through the distal ileum and proximal ascending colon and cecum correlate for ileitis consider Crohn's disease diverticulosis without acute diverticulitis right ovarian cyst. Lab work completed showing white blood cell 0.70, hemoglobin 11.7, creatinine 0.50 bun 9 stool for occult blood negative UA negative. At this time patient will be admitted patient states she feels much improved. Continue with IV fluid and symptomatic management oncology services are following patient maintained on clear liquid diet stool for C. difficile ordered. Current vital signs temp 100.9, heart rate 91, respiratory rate 18, blood pressure 158/78 with a pulse ox of 97% on room air. Will consult infectious disease services due to leukopenia and fever. Blood culture ordered 10/11/2024 patient was seen and examined on the medical floor she is alert and oriented x 3 in no apparent distress she is complaining of nausea and abdominal discomfort otherwise she denies any complaints there is no fever or chills no headache or dizziness no chest pain no shortness of breath no cough no vomiting no diarrhea today and no urinary symptoms On 10/12/2024 patient is alert and oriented x 3. Potassium today 2.8 will replace per protocol. Will also order 2D echo due to patient's history of endocarditis. Patient remains on Zosyn. Patient denies chest pain or shortness of breath. Patient denies nausea vomiting or diarrhea. Patient denies any urinary burning or frequency. Current vital signs temp 97.8, heart rate 72, respiratory rate 14, blood pressure 116/71 with pulse ox of 100% on room air On 10/13/2024 patient is alert and oriented x 3. Potassium improving to 3.9. Patient remains on IV Zosyn white blood cell 12.48. Infectious disease are following.. Patient continuing to have loose stool will order stool for C. difficile. Awaiting 2D echo result. Current vital signs temp 98.1, heart rate 82, respiratory rate 16, blood pressure 123/63 with pulse ox of 92% on room air. Patient denies chest pain or shortness of breath. Patient denies nausea vomiting or diarrhea. Patient denies any urinary burning or frequency 10/14/2024 patient was seen and examined on the medical floor she is alert and oriented x 3 in no apparent distress she is complaining of nausea and abdominal discomfort otherwise she denies any complaints there is no fever or chills no headache or dizziness no chest pain no shortness of breath no cough no vomiting no diarrhea today and no urinary symptoms On 10/15/2024 patient was seen and examined on the medical floor she is alert oriented x 3 in no apparent distress, still complaining of severe pain related to the radiation skin burn, otherwise she denies any complaints at this time there is no fever or chills no headache or dizziness no chest pain no shortness of breath no cough no nausea or vomiting no abdominal pain no diarrhea no ur inary symptoms. Patient remains on IV Zosyn for abdominal sepsis, infectious disease following. On 10/16/2024 patient was seen and examined on the medical floor she is alert and oriented x 3 in no apparent distress she is still complaining of lower abdominal pain mostly in the skin area she is also complaining of severe weakness and fatigue otherwise she denies any complaints there is no fever or chills no headache or dizziness no chest pain no shortness of breath no cough no nausea or vomiting no abdominal pain she has occasional diarrhea no urinary symptoms On 10/17/2024 patient is alert and oriented x 3. Patient remains on IV Zosyn awaiting further recommendations from ID. Discharge in progress to home with home health care. Patient denies chest pain or shortness of breath. Patient reports improvement with nausea and vomiting. Patient denies any urinary burning or frequency. Current vital signs temp 98.2, heart rate 73, respiratory rate 14, blood pressure 133/77 with pulse ox of 95% on room air On 10/18/2024 patient is alert and oriented x 3. Awaiting discharge plan per ca se management. Patient reports improvement. Patient denies chest pain or shortness of breath. Patient denies nausea vomiting or diarrhea. Patient denies any urinary burning or frequency Objective - Vital Signs Vital signs: Vital Signs Temp 97.8 F 10/18/24 13:11 Pulse 78 10/18/24 13:11 Resp 14 10/18/24 13:11 BP 120/78 10/18/24 13:11 Pulse Ox 98 10/18/24 07:45 FiO2 Intake & Output 10/17/24 10/18/24 10/18/24 18:59 06:59 18:59 Intake Total 480 120 Balance 480 120 Intake: Oral 480 120 Other: Voiding Method Toilet Toilet Incontinent Incontinent Incontinent # Voids 1 # Bowel Movements 1 - Exam Head normocephalic Neck supple Lungs clear to auscultation bilaterally no wheezing or crackles Heart regular rate and rhythm S1-S2, no rub or gallop Abdomen is soft nontender nondistended positive bowel sounds no hepatos plenomegaly Extremities no edema Neuro alert and orientated to 3 - Labs CBC & Chem 7: 10/18/24 04:19 10/18/24 11:51 Labs: Abnormal Lab Results - Last 24 Hours (Table) 10/18/24 10/18/24 Range/Units 04:19 04:19 RBC 3.27 L (4.10-5.20) X 10*6/uL Hgb 10.4 L (12.0-15.0) g/dL Hct 31.0 L (37.2-46.3) % RDW 15.0 H (11.5-14.5) % Lymphocytes # (Manual) 0.23 L (0.90-5.00) X 10*3/uL Sodium 134 L (137-145) mmol/L Potassium 3.4 L (3.5-5.1) mmol/L BUN 5 L (7-17) mg/dL Creatinine 0.39 L (0.52-1.04) mg/dL Calcium 8.2 L (8.4-10.2) mg/dL Total Protein 4.3 L (6.3-8.2) g/dL Albumin 2.2 L (3.5-5.0) g/dL Assessment and Plan Assessment: 1. Generalized weakness 2. Nausea vomiting secondary to ileitis 3. Febrile 4. Currently getting chemo and radiation for anal cancer 5. 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 GI prophylax Protonix Oncology and infectious disease services consulted Repeat labs ordered Continue normal saline at 75 Blood culture ordered
--- NOTE | 2024-10-19 14:16 | P.PN ---
Subjective Progress Note Date: 10/19/24 Principal diagnosis: Reason for follow-up is febrile neutropenia/ileitis Patient is a 79-year-old female with a past medical history significant for osteomyelitis, squamous cell carcinoma of the rectum who has completed her chemotherapy and is undergoing concurrent radiation presenting to the hospital for evaluation of nausea and vomiting along with abdominal bloatin g, patient did have a fever CT abdominal pelvis concerning for ileitis, prompted this consultation. On today's evaluation that is 10/19/2024,the patient remains to be afebrile, patient is on room air not requiring supplemental oxygen and mentioned breathing comfortably with no chest pain or cough.Patient denies having any nausea or vomiting, lower abdominal discomfort has decreased and diarrhea has improved feeling better. No new lab has been obtained today culture has been negative Objective - Vital Signs Vital signs: Vital Signs Temp 97.5 F L 10/19/24 07:55 Pulse 82 10/19/24 08:00 Resp 20 10/19/24 08:00 BP 130/80 10/19/24 07:55 Pulse Ox 93 L 10/19/24 07:55 FiO2 Intake & Output 10/18/24 10/19/24 10/19/24 18:59 06:59 18:59 Intake Total 120 Balance 120 Weight 59.874 kg Intake: Oral 120 Other: Voiding Method Incontinent Toilet Toilet Incontinent Incontinent # Voids 1 # Bowel Movements 1 - Exam GENERAL DESCRIPTION: An elderly female lying in bed in no distress RESPIRATORY SYSTEM: Unlabored breathing , decreased breath sounds at bases HEART: S1 S2 regular rate and rhythm , ABDOMEN: Soft , no tenderness EXTREMITIES: No edema feet - Labs CBC & Chem 7: 10/18/24 04:19 10/18/24 11:51 Assessment and Plan (1) Sepsis Current Visit: Yes Status: Acute Code(s): A41.9 - SEPSIS, UNSPECIFIED ORGANISM SNOMED Code(s): 34875469 (2) Allergy to multiple antibiotics Current Visit: Yes Status: Acute Code(s): Z88.1 - ALLERGY STATUS TO OTHER ANTIBIOTIC AGENTS SNOMED Code(s): 741217855 (3) Ileitis Current Visit: Yes Status: Acute Priority: High Code(s): K52.9 - NONINFECTIVE GASTROENTERITIS AND COLITIS, UNSPECIFIED SNOMED Code(s): 05633979 Plan: 1patient is in the hospital with sepsis in this patient due to fever tachycardia and leukopenia with low white count bradycardia for both/sepsis as well as febrile neutropenia source is likely abdominal and this will treat him predominantly abdominal symptoms and concern for ileitis/typhlitis, will need to cover for enteric gram-negative both aerobes and anaerobes. 2patient with multiple antibiotic ALLERGIES that would limit the number of antibiotic safe to use. 3patient did have resolution of the fever and the patient white count has normalized blood cultures so far negative 4patient has received adequate Zosyn while inpatient short course of oral Augmentin on discharge Discussed with the [employer] TECHNICIAN for admitting team Dictation was produced using [employer] dictation software. please excuse any grammatical, word or spelling errors.
== END 2024-10-19 14:53 | DRG 871 ==
LOC: EC 09:41 → 1SOBS 16:56 → 5NMEDONC 10-12 17:22
PROVIDERS: ADMIT Internal Medicine; ATTEND Internal Medicine
DX: A41.9 Sepsis, unspecified organism (principal); D61.810 Antineoplastic chemotherapy induced pancytopenia; C21.8 Malignant neoplasm of overlapping sites of rectum, anus and anal canal; D70.1 Agranulocytosis secondary to cancer chemotherapy; K52.1 Toxic gastroenteritis and colitis; A09 Infectious gastroenteritis and colitis, unspecified; Z11.52 Encounter for screening for COVID-19; T45.1X5A Adverse effect of antineoplastic and immunosuppressive drugs, initial encounter; K12.32 Oral mucositis (ulcerative) due to other drugs; N90.89 Other specified noninflammatory disorders of vulva and perineum; K12.31 Oral mucositis (ulcerative) due to antineoplastic therapy; E87.6 Hypokalemia; D12.3 Benign neoplasm of transverse colon; R50.81 Fever presenting with conditions classified elsewhere; Y84.2 Radiological procedure and radiotherapy as the cause of abnormal reaction of the patient, or of later complication, without mention of misadventure at the time of the procedure; Z86.79 Personal history of other diseases of the circulatory system; Z88.1 Allergy status to other antibiotic agents; Z88.7 Allergy status to serum and vaccine; Z91.040 Latex allergy status; Z98.51 Tubal ligation status; Z98.49 Cataract extraction status, unspecified eye
CPT/HCPCS: 36415; 51701; 74177; 80053; 81001; 82272; 83605; 83735; 84132; 84484; 85025; 85610; 85730; 86850; 86900; 86901; 87040; 87324; 87636; 93005; 93306; 94760; 96374; 99285